=== PATIENT | male | born 1990 | race Caucasian/White ===

== ENCOUNTER 2020-11-18 00:03 | Emergency (ER) | payer MEDICAID, SELFPAY ==
[2020-11-18 00:04] VITALS: BP 125/83; BP 140/90; PULSE 80; PULSE 91; RESP 18; TEMP 37.1; O2SAT 95; O2SAT 99; BMI 20.7
--- NOTE | 2020-11-18 00:13 | ED_ITS ---
HPI - Psych General Chief Complaint: Psychiatric Symptoms Stated Complaint: CRISIS,NO SI/HI,CALM&COOP @ TIME,MANIC,?MED PER PT Time Seen by Provider: 11/18/20 00:13 Source: patient Mode of arrival: ambulatory Limitations: no limitations History of Present Illness HPI Narrative: History of bipolar disorder on lithium and BuSpar but non compliant to the medication been feeling manic for last few days unable to sleep very anxious denies any suicidal ideation or homicidal ideation no delusions hallucinations MD complaint: anxiety Onset (ago): day(s) Duration: constant History of same: Yes Relieving factors: none Exacerbating factors: none Context: not taking psychiatric medications Associated psychiatric symptoms: depression and racing thoughts Treatments prior to arrival: none Related Data Previous Rx's Medication Instructions Recorded lorazepam [Ativan] 1 mg PO BEDTIME PRN #14 tab 11/18/20 Allergies Allergy/AdvReac Type Severity Reaction Status Date / Time amoxicillin [AMOXICILLIN] Allergy Intermediate RASH Verified 11/18/20 00:14 bupropion [BUPROPION] Allergy Unknown UNKNOWN Verified 11/18/20 00:14 Review of Systems Review of Systems: Constitutional : No Fever, No Chills ENT/Mouth : No Ear Pain, No Nasal Congestion, No sore throat Eyes: No Eye Pain, No Swelling, No Redness Cardiovascular : No Chest Pain, No SOB Respiratory : No Cough, No Sputum, No Dyspnea Gastrointestinal : No Nausea, No Vomiting, No Diarrhea, No Hematochezia, No Melena Genitourinary : No Dysuria, No Urinary Frequency, No Hematuria Musculoskeletal : No Myalgias Skin : No Skin Lesions, No rash Neuro : No Weakness, No Numbness, No Paresthesias, No Dizziness, No Headache Psych : positive Anxiety, positive Depression, negative SI/HI Heme/Lymph: No Lymphadenopathy Endocrine : No Polyuria, No Polydipsia PMFSH Past Medical History Medical History Bipolar disorder Social History Social History Advance Directives: No Advance Directives Information Provided: No Physical Exam Vital Signs: Vital Signs: Last Vital Signs Temp 98.8 F 11/18/20 00:04 Pulse 91 11/18/20 00:04 Resp 18 11/18/20 00:04 BP 125/83 11/18/20 00:04 Pulse Ox 95 11/18/20 00:04 Body Mass Index 20.7 Const: General: comfortable and no acute distress Orientation/consciousness: patient oriented x3 HENMT: Head: Yes normocephalic and Yes atraumatic Ears: hearing grossly normal bilaterally General nose exam: Normal external nose present Eyes: General: appearance normal, both eyes and all related structures Conjunctivae: conjunctivae normal Sclerae: sclerae normal Neck: Neck: Yes normal visual inspection Resp: Effort & Inspection: normal respiratory effort Auscultation: clear to auscultation bilaterally Cardio: Jugular venous distension: no JVD Palpation: normal PMI Rate: regular rate Rhythm: regular rhythm Heart sounds: S1 normal heart sound present and S2 normal heart sound present GI: Inspection: Yes normal to inspection Palpation (GI): Soft to palpation and nontender Auscultation: normal bowel sounds Back/Spine/Pelvis: Thoracic/Lumbar Spine: thoracic and lumbar spine normal to inspection Skin: General skin exam: no rashes or lesions noted Neuro: General: patient oriented x3 and no focal motor deficits Extrem: General: Yes normal to inspection and Yes full ROM Psych: Appearance: grossly normal Mental Status: mental status grossly normal Speech and movement: Normal speech and movement present Affect: Anxious affect present Attitude: cooperative Thought process: Normal thought process present Thought content: Normal thought content present Insight: Fair insight present (Psych) Judgement: Fair judgement present (Psych) MDM - Psych MDM Narrative Medical decision making narrative: Patient has bipolar disorder already has planned to see therapist next week and psychiatrist next month already has prescriptions at home feels safe to go home asking for medication to relax him denies any suicidal ideation will discharge him home on Ativan Differential Diagnosis Differential diagnosis: Likely bipolar disorder Medical Records Attestation: I reviewed the patient's medical records. Lab Data Attestation: I reviewed the patient's lab results. Result diagrams: 11/18/20 00:24 11/18/20 00:24 Labs: Lab Results 11/18/20 11/18/20 11/18/20 Range/Units 00:24 00:24 00:24 WBC 11.4 H (4.8-10.8) X10*3/uL RBC 5.12 (4.60-5.80) X10*6/uL Hgb 14.4 (14.0-18.0) g/dl Hct 43.9 (42-52) % MCV 85.7 (80-98) fL MCH 28.1 (27.0-33.0) pg MCHC 32.8 (31.0-36.0) g/dl RDW 12.6 (11.0-16.0) % Plt Count 267 (160-400) X10*3/uL MPV 9.9 (9.4-12.4) fL Immature Gran % (Auto) 0.9 H (0.0-0.4) % Neut % (Auto) 72.1 (45-73) % Lymph % (Auto) 18.1 L (20-40) % [place] % (Auto) 4.5 (2-11) % Eos % (Auto) 4.2 H (0-4) % Baso % (Auto) 0.2 (0-2) % Lymph # (Auto) 2.1 (1.2-4.9) X10*3/uL [place] # (Auto) 0.5 (0.1-1.2) X10*3/uL Eos # (Auto) 0.5 H (0.0-0.4) X10*3/uL Baso # (Auto) 0.0 (0.0-0.2) X10*3/uL Abs Immat Gran (auto) 0.10 H (0.00-0.03) X10*3/uL Absolute Neuts (auto) 8.2 (2.0-8.3) X10*3/uL Absolute Nucleated RBC 0.000 (0.0-0.012) X10*3/uL Nucleated RBC % (auto) 0.0 (0.0-0.2) /100WBC Sodium 137 (135-145) mmol/L Potassium 4.2 (3.3-5.1) mmol/L Chloride 105 (96-108) mmol/L Carbon Dioxide 24 (22-29) mmol/L Anion Gap 12 (12-20) BUN 11 (9-16) mg/dL Creatinine 0.91 (0.5-1.4) mg/dL Estim Creat Clear Calc 114.4 Estimated GFR > 60 Random Glucose 104 (60-115) mg/dL Calcium 9.1 (8.4-10.2) mg/dL Total Bilirubin 0.4 (0.0-1.0) mg/dL AST 18 (5-37) U/L ALT 15 (0-40) U/L Alkaline Phosphatase 43 (39-117) U/L Total Protein 6.5 (6.5-8.0) g/dL Albumin 4.3 (3.5-5.0) g/dL [place] 0.30 L (0.60-1.20) mmol/L Discharge Plan Discharge Clinical Impression: Bipolar disorder Patient Disposition: Home, Self-Care Instructions: Bipolar Disorder (ED) Additional Instructions: Continue taking your medications and follow with your therapist and psychiatrist as planned Ativan for severe anxiety Prescriptions: New lorazepam [Ativan] 1 mg tablet 1 mg PO BEDTIME PRN (Reason: anxiety) Qty: 14 RF: 0
[2020-11-18 00:46] LABS: MANUAL DIFF FLAG NO
[2020-11-18 00:48] LABS: Basophils Percent Auto 0.2 % (0-2); Eosinophils Absolute Auto 0.5 X10*3/uL (0.0-0.4); Eosinophils Percent Auto 4.2 % (0-4); Hematocrit 43.9 % (42-52); Hemoglobin 14.4 g/dl (14.0-18.0); Imm Gran Pct Auto 0.9 % (0.0-0.4); Lymphocytes Absolute Auto 2.1 X10*3/uL (1.2-4.9); Lymphocytes Percent Auto 18.1 % (20-40); Mean Corpuscular HGB Conc 32.8 g/dl (31.0-36.0); Mean Corpuscular Hemoglobin 28.1 pg (27.0-33.0); Mean Corpuscular Volume 85.7 fL (80-98); Mean Platelet Volume 9.9 fL (9.4-12.4); Monocytes Absolute Auto 0.5 X10*3/uL (0.1-1.2); Monocytes Percent Auto 4.5 % (2-11); Neutrophils Absolute Auto 8.2 X10*3/uL (2.0-8.3); Neutrophils Percent Auto 72.1 % (45-73); Platelet Count 267 X10*3/uL (160-400); Red Blood Count 5.12 X10*6/uL (4.60-5.80); Red Cell Distribution Width 12.6 % (11.0-16.0); White Blood Count 11.4 X10*3/uL (4.8-10.8)
[2020-11-18 01:10] LABS: Alanine Aminotransferase 15 U/L (0-40); Albumin Level 4.3 g/dL (3.5-5.0); Alkaline Phosphatase 43 U/L (39-117); Anion Gap 12 (12-20); Aspartate Amino Transferase 18 U/L (5-37); Bilirubin Total 0.4 mg/dL (0.0-1.0); Blood Urea Nitrogen 11 mg/dL (9-16); Calcium 9.1 mg/dL (8.4-10.2); Carbon Dioxide 24 mmol/L (22-29); Chloride 105 mmol/L (96-108); Creatinine Clr Calc Pharmacy 114.4; Estimated Glomerular Filt Rate > 60; Glucose Random 104 mg/dL (60-115); Potassium 4.2 mmol/L (3.3-5.1); Sodium 137 mmol/L (135-145); Total Protein 6.5 g/dL (6.5-8.0)
[2020-11-18] MEDS: LORazepam 1 MG TABLET 2 MG PO (01:56)
== END 2020-11-18 02:15 | disposition home or self-care (01) ==
PROVIDERS: Emergency Provider Internal Medicine
DX: F31.9 Bipolar disorder, unspecified (principal); Z91.14 Patient's other noncompliance with medication regimen; F41.9 Anxiety disorder, unspecified; F17.210 Nicotine dependence, cigarettes, uncomplicated; F12.90 Cannabis use, unspecified, uncomplicated; F14.90 Cocaine use, unspecified, uncomplicated; F16.90 Hallucinogen use, unspecified, uncomplicated; F15.90 Other stimulant use, unspecified, uncomplicated
CPT/HCPCS: 36415; 80053; 80178; 85025; 99283

== ENCOUNTER 2020-11-18 19:39 | Inpatient (IN) | payer OTHER, MEDICAID, SELFPAY ==
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
--- NOTE | ~2020-11-18 | XR_ITS ---
EXAMINATION: XR HAND, RIGHT CLINICAL INFORMATION: Trauma, pain. COMPARISON: Radiographs right hand 11/19/2020. TECHNIQUE: PA, lateral, and oblique views of the right hand. FINDINGS: There is no acute or healing fracture, dislocation, or destructive process. Bony mineralization appears normal. The ulnar variance is neutral. There is no arthropathy. No periostitis. XR/XR hand RT 2V IMPRESSION: No acute or healing fracture or dislocation.
[2020-11-18 20:39] VITALS: BP 122/65; PULSE 114; RESP 18; TEMP 36.9; O2SAT 96; BMI 23.4
[2020-11-18 20:51] VITALS: BP 122/65; PULSE 114; RESP 18; TEMP 36.9; O2SAT 96
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
[2020-11-18 21:47] LABS: Amphetamine Screen Urine POSITIVE (Not Detect); Barbiturates, Urine Not Detected (Not Detect); Benzodiazepines Screen Urine Not Detected (Not Detect); Cannabinoid Screen Urine POSITIVE (Not Detect); Cocaine Screen Urine Not Detected (Not Detect); Opiate Screen Urine Not Detected (Not Detect); Phencyclidine Screen Urine Not Detected (Not Detect)
--- NOTE | 2020-11-18 22:27 | PC.NURSE ---
[facility] faxed and called. Ji stated that PT was assessed in the community and is currently an inpatient bed search.
--- NOTE | 2020-11-19 00:30 | PC.NURSE ---
Med rec completed with 24 hour [facility] pharmacy.
[2020-11-19 06:32] LABS: COVID-19 Test Negative (Negative); IDNOW Serial# 9DD0AD1C
[2020-11-19] MEDS: Nicotine 21 MG PATCH.TD24 TRANSDERMA ×2 (06:42→12:22)
[2020-11-19 06:49] VITALS: BP 98/68; PULSE 87; RESP 18; TEMP 36.6; O2SAT 96
--- NOTE | 2020-11-19 07:04 | PC.NURSE ---
Report received. PT currently resting, calm and cooperative, Pt is inpatient bedsearch.
[2020-11-19] MEDS: busPIRone HCl 5 MG TABLET 15 MG PO ×3 (08:48→23:30)
[2020-11-19] MEDS: Lithium Carbonate ER 450 MG TABLET.ER PO ×3 (08:48→23:29)
[2020-11-19 09:00] VITALS: BP 110/71; PULSE 115; RESP 18; TEMP 37.1; O2SAT 95
[2020-11-19] MEDS: LORazepam 1 MG TABLET 2 MG PO ×2 (12:22→19:38)
[2020-11-19 15:32] VITALS: BP 106/70; PULSE 93; RESP 19; TEMP 36.6; O2SAT 99
[2020-11-19] MEDS: chlorproMAZINE HCl 100 MG TABLET PO ×2 (15:35→23:34)
[2020-11-19 18:15] VITALS: BP 103/61; PULSE 92; RESP 20; TEMP 36.6; O2SAT 96
--- NOTE | 2020-11-19 20:00 | PC.NURSE ---
Report received. PT was anxious about being sent home because he still feels manic and overwhelmed with emotions. PT is sitting in his room speaking with BHN. PT is inpatient bed search at this time.
--- NOTE | 2020-11-19 21:47 | PC.NURSE ---
PT is upset and agitated after speaking with BHN. PT wants to go home, but also desires psychiatric treatment at respite. This nurse explained to the PT that he would receive the type of care he is looking for at an inpatient facility. PT is still angry after finding out that he is being held on a Section 12. PT refused night time medications. Buspirone was delivered by pharmacy and therefore could not be wasted in the Pyxis. This nurse wasted Buspirone in the sharps container with charge nurse Jody as witness.
--- NOTE | 2020-11-19 23:03 | PC.NURSE ---
PT was agitated, punching castillo, and arguing with staff. PT told this nurse to stop talking to him. PT does not want to held here on a Section. Security was called for assistance. Security was able to talk to the patient and calm him down.
--- NOTE | 2020-11-19 23:28 | PC.NURSE ---
PT is now requesting his night time medications.
[2020-11-19 23:35] VITALS: BP 101/63; PULSE 98; RESP 16; TEMP 36.8; O2SAT 97
--- NOTE | 2020-11-19 23:35 | PC.NURSE ---
PT complained about his hand hurting after punching the castillo. This nurse examined his hand and found an abrasion and swelling on the fourth knuckle of his right hand. Provider informed. X-ray ordered.
[2020-11-20] MEDS: Melatonin 3 MG TABLET 6 MG PO (00:01)
[2020-11-20] MEDS: Lithium Carbonate ER 450 MG TABLET.ER PO ×3 (08:20→20:39)
[2020-11-20] MEDS: busPIRone HCl 5 MG TABLET 15 MG PO ×3 (08:20→21:10)
[2020-11-20 08:30] VITALS: BP 115/67; PULSE 82; RESP 17; TEMP 36.8; O2SAT 99
[2020-11-20 10:00] VITALS: RESP 16
[2020-11-20 11:02] VITALS: BP 107/70; PULSE 108; RESP 16; TEMP 36.7
[2020-11-20] MEDS: LORazepam 1 MG TABLET 2 MG PO ×3 (11:11→23:43)
[2020-11-20] MEDS: Nicotine 21 MG PATCH.TD24 TRANSDERMA (11:12)
[2020-11-20 12:00] VITALS: RESP 18
[2020-11-20 13:55] VITALS: RESP 16
--- NOTE | 2020-11-20 15:08 | PC.NURSE ---
Report received. Pt sitting on bed at current, alert, and calm. No complaints at this time.
--- NOTE | 2020-11-20 17:19 | PC.NURSE ---
Pt asleep in bed at current, no signs of distress, respirations even and unlabored.
--- NOTE | 2020-11-20 17:40 | PC.NURSE ---
Pt agitated after a phone call, requested and given ativan prn as ordered.
[2020-11-20 17:41] VITALS: BP 118/74; PULSE 140; RESP 18; TEMP 37.2; O2SAT 96
--- NOTE | 2020-11-20 18:12 | PC.NURSE ---
Pt requesting to speak to a therapist and not BHN. CARE consult ordered by provider.
--- NOTE | 2020-11-20 18:19 | PC.NURSE ---
Pt reporting SI, demanding to speak with a therapist . Irritable. Pt reassured that someone from CARE team would be coming to speak with him. Declined dinner. Pt laying in bed at current.
[2020-11-20] MEDS: chlorproMAZINE HCl 100 MG TABLET PO (20:43)
[2020-11-20] MEDS: diphenhydrAMINE HCL 25 MG TABLET 50 MG PO (22:22)
--- NOTE | 2020-11-21 01:29 | MHC.CARE ---
CARE Team was consulted due to pt reporting that he wants to speak with a therapist. CARE Team made several attempts to check in with pt this evening, however, pt was either sleeping or on the phone each time. ED BH Pod is encouraged to re consult CARE Team if still needed tomrrow.
--- NOTE | 2020-11-21 07:12 | PC.NURSE ---
Report received from PAULINO Rodriguez. Pt resting, resp unlabored.
[2020-11-21 07:32] VITALS: BP 103/70; PULSE 88; RESP 20; TEMP 36.6; O2SAT 98
[2020-11-21 08:00] VITALS: RESP 20
--- NOTE | 2020-11-21 08:05 | PC.NURSE ---
Pt awake alert, very irritable, demanding to see care team, stating ' I wont take any medications....you can shove them up your ass.' Unclear what triggered the irritation.
--- NOTE | 2020-11-21 09:31 | PC.NURSE ---
Pt resting- declined to take medications, continues to be irritable, continues to state that staff can take medications 'and shove it...' Pt aware that he has been accepted to [facility].
[2020-11-21 10:00] VITALS: RESP 20
--- NOTE | 2020-11-21 10:48 | PC.NURSE ---
Pt on telephone, then bvecame very angry, swearing at RN, unclear what triggered current behavior.
--- NOTE | 2020-11-21 10:57 | PC.NURSE ---
MHA in to converse w/ pt. Pt stated to her that he is angry because he wants BHN in to see him; unable to meet this need as pt has been accepted to [facility]
--- NOTE | 2020-11-21 11:29 | PC.NURSE ---
Report given to Tonny Garcia. Pt aware that he will be transferred to [facility], continues to decline PO medications. Care team in.
[2020-11-21 12:00] VITALS: RESP 20
--- NOTE | 2020-11-21 12:02 | PC.NURSE ---
Security and CARE team in to transfer pt to [facility]. Pt cooperative w/ transfer.
[2020-11-21] MEDS: LORazepam 1 MG TABLET 2 MG PO ×2 (15:35→22:23)
[2020-11-21] MEDS: busPIRone HCl 5 MG TABLET 15 MG PO ×2 (15:35→20:05)
[2020-11-21] MEDS: Lithium Carbonate ER 450 MG TABLET.ER PO ×2 (15:36→20:04)
--- NOTE | 2020-11-21 15:37 | MHC.CARE ---
Pt was agitated during the morning hours and initially refused to sign a CV to come to the unit. After speaking with the Pt, he agreed to sign the CV and explained his frustrations with the process and the wait. Pt was agreeable and accompanied me to the unit.
[2020-11-21] MEDS: Nicotine Polacrilex 2 MG GUM 4 MG BUCCAL (17:20)
[2020-11-21 18:00] VITALS: BP 128/76; PULSE 81; TEMP 36.6
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
[2020-11-21] MEDS: chlorproMAZINE HCl 100 MG TABLET PO (20:29)
[2020-11-22] MEDS: HaloperidoL 5 MG TABLET PO ×2 (00:01→22:07)
[2020-11-22] MEDS: traZODone HCL 50 MG TABLET PO ×3 (00:01→22:07)
[2020-11-22] MEDS: hydrOXYzine HCL 25 MG TABLET PO (00:01)
[2020-11-22 06:44] VITALS: BP 122/60; PULSE 75; RESP 16; TEMP 37.1; O2SAT 98
[2020-11-22] MEDS: busPIRone HCl 5 MG TABLET 15 MG PO ×3 (08:34→20:24)
[2020-11-22] MEDS: Lithium Carbonate ER 450 MG TABLET.ER PO ×3 (08:35→20:22)
[2020-11-22 09:11] LABS: Thyroid Stimulating Hormone 1.99 uIU/mL (0.32-4.0)
[2020-11-22] MEDS: LORazepam 1 MG TABLET 2 MG PO ×2 (10:50→20:21)
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
[2020-11-22] MEDS: chlorproMAZINE HCl 100 MG TABLET PO ×2 (16:29→20:21)
[2020-11-22] MEDS: Nicotine 21 MG PATCH.TD24 TRANSDERMA (16:32)
[2020-11-22] MEDS: Nicotine Polacrilex 2 MG GUM 4 MG BUCCAL (17:13)
[2020-11-22 18:00] VITALS: BP 105/87; PULSE 80; TEMP 36.7
[2020-11-22] MEDS: OXcarbazepine 300 MG TABLET PO (20:22)
[2020-11-23 06:10] VITALS: BP 110/58; PULSE 86; RESP 18; TEMP 36.5; O2SAT 97
[2020-11-23] MEDS: Nicotine 21 MG PATCH.TD24 TRANSDERMA (08:43)
[2020-11-23] MEDS: chlorproMAZINE HCl 100 MG TABLET PO ×2 (08:44→20:16)
[2020-11-23] MEDS: Lithium Carbonate ER 450 MG TABLET.ER PO ×3 (08:44→20:17)
[2020-11-23] MEDS: busPIRone HCl 5 MG TABLET 15 MG PO ×3 (08:44→20:17)
[2020-11-23] MEDS: OXcarbazepine 300 MG TABLET PO ×2 (08:45→20:16)
[2020-11-23 09:15] LABS: Estimated Average Glucose 97 mg/dL
[2020-11-23 09:17] LABS: Lithium 0.88 mmol/L (0.60-1.20)
[2020-11-23 09:23] LABS: Cholesterol 131 mg/dL; HDL Cholesterol 33 mg/dL; LDL Cholesterol Calculated 75 mg/dl; Triglycerides 115 mg/dL
[2020-11-23 09:39] LABS: TSH reflex Free T4 1.68 uIU/mL (0.32-4.0)
[2020-11-23] MEDS: LORazepam 1 MG TABLET 2 MG PO ×2 (10:41→16:43)
[2020-11-23] MEDS: HaloperidoL 5 MG TABLET PO (13:55)
[2020-11-23 16:49] VITALS: BP 114/56; PULSE 111; TEMP 36.6
[2020-11-23 20:17] VITALS: BP 110/61; PULSE 94
[2020-11-23] MEDS: cloNIDine HCL 0.1 MG TABLET PO (20:17)
[2020-11-23] MEDS: traZODone HCL 50 MG TABLET PO ×2 (20:23→21:29)
--- NOTE | 2020-11-23 20:56 | P.PNPSI_ITS ---
Subjective Subjective Date of Service: 11/23/20 Reason For Visit: Bipolar Disorder Subjective Notes: [place]incon Warning and Conditional Voluntary Interim History: Patient somewhat pressured in agitated complains of insomnia he does except that he has a bipolar diagnosis we discussed increasing Thorazine at bedtime as needed for sleep start clonidine monitor blood pressure Trileptal started Medication Compliance: Yes Side effects from medications: Yes Mental Status Exam Mental Status Exam Narrative: Appearance: casually groomed, poor hygiene, in NAD Behavior: mostly cooperative, but restless Psychomotor: restless, agitated at times Speech: mostly clear, rambles at times, hyperverbal and pressured at times, spontaneous TP: tangential TC: no overt psychosis, feeling out of control, passive SI Mood: depressed Affect: restless/irritable at times VH/AH: denies Insight/judgment: poor x 2. Memory/cog:alert, oriented x 3. impaired secondary to psychiatric symptoms. Diagnostics Vital Signs (24Hr): Vital Signs - 24 hr 11/23/20 06:10 11/23/20 16:49 11/23/20 20:17 Temperature 97.7 F 97.8 F Pulse Rate 86 111 H 94 Respiratory Rate 18 Blood Pressure 110/58 L 114/56 L 110/61 Pulse Oximetry 97 Body Mass Index 23.4 Labs Labs: Laboratory Results - last 48 hr 11/22/20 11/23/20 11/23/20 07:56 08:23 08:23 Estimat Average Glucose Hemoglobin A1c % Triglycerides 115 Cholesterol 131 LDL Cholesterol, Calc 75 HDL Cholesterol 33 TSH 1.99 1.68 [place] 0.88 11/23/20 08:23 Estimat Average Glucose 97 Hemoglobin A1c % 5.0 Triglycerides Cholesterol LDL Cholesterol, Calc HDL Cholesterol TSH [place] Imaging Radiology Impressions: ITS Impressions Hand X-Ray 11/19/20 23:37 IMPRESSION: Normal right hand. Hand X-Ray 11/22/20 16:20 IMPRESSION: No acute or healing fracture or dislocation. Medications Medications Current Medications Generic Name Dose Route Start Last Admin Trade Name Freq PRN Reason Stop Dose Admin Acetaminophen 650 mg 11/21/20 12:40 Acetaminophen 325 Mg Tablet PO Q6H PRN Headache/Pain Mild Scale (1-3) Al Hydroxide/Mg Hydroxide 30 ml 11/21/20 12:40 Magnesium Hydrox/Alum Hydrox 30 Ml Oral.Susp PO Q6H PRN Heartburn/Nausea Buspirone HCl 15 mg 11/19/20 09:00 11/23/20 20:17 Buspirone Hcl 5 Mg Tablet PO 15 mg TID EDDA Administration Chlorpromazine HCl 100 mg 11/22/20 14:15 11/23/20 20:16 Chlorpromazine Hcl 100 Mg Tablet PO 100 mg BID EDDA Administration Chlorpromazine HCl 50 mg 11/23/20 20:48 Chlorpromazine Hcl 100 Mg Tablet PO BEDTIME PRN Insomnia Clonidine HCl 0.1 mg 11/23/20 21:00 11/23/20 20:17 Clonidine Hcl 0.1 Mg Tablet PO 0.1 mg BEDTIME EDDA Administration Protocol Haloperidol 5 mg 11/21/20 14:25 11/23/20 13:55 Haloperidol 5 Mg Tablet PO 5 mg Q4H PRN Administration agitation Hydroxyzine HCl 25 mg 11/21/20 12:40 11/22/20 00:01 Hydroxyzine Hcl 25 Mg Tablet PO 25 mg BEDTIME PRN Administration Anxiety [place] Carbonate 450 mg 11/19/20 09:00 11/23/20 20:17 [place] Carbonate Er 450 Mg Tablet.Er PO 450 mg TID EDDA Administration Lorazepam 2 mg 11/21/20 14:21 11/23/20 16:43 Lorazepam 1 Mg Tablet PO 2 mg Q6H PRN Administration anxiety/restlessness Magnesium Hydroxide 30 ml 11/21/20 12:40 Milk Of Magnesia 30 Ml Oral.Susp PO DAILY PRN Constipation Nicotine 21 mg 11/22/20 14:00 11/23/20 08:43 Nicotine 21 Mg Patch.Td24 TRANSDERMA 21 mg DAILY EDDA Administration Nicotine Polacrilex 4 mg 11/21/20 17:03 11/22/20 17:13 Nicotine Polacrilex 2 Mg Gum BUCCAL 4 mg Q2H PRN Administration Nicotine Cravings Oxcarbazepine 300 mg 11/22/20 21:00 11/23/20 20:16 Oxcarbazepine 300 Mg Tablet PO 300 mg BID EDDA Administration Sumatriptan Succinate 50 mg 11/19/20 15:11 Sumatriptan Succinate 50 Mg Tablet PO BID PRN Migraine Headache Trazodone HCl 50 mg 11/21/20 12:40 11/23/20 20:23 Trazodone Hcl 50 Mg Tablet PO 50 mg BEDTIME PRN Administration Insomnia Allergies Allergies Allergy/AdvReac Type Severity Reaction Status Date / Time amoxicillin [AMOXICILLIN] Allergy Intermediate RASH Verified 11/18/20 00:14 bupropion [BUPROPION] Allergy Unknown UNKNOWN Verified 11/18/20 00:14 Assessment & Plan Assessment & Plan (1) Amphetamine and amphetamine derivative dependence: Status: Acute Code(s): F15.20 - Other stimulant dependence, uncomplicated (2) Bipolar disorder: Status: Acute Code(s): F31.9 - Bipolar disorder, unspecified Assessment and Plan: Continue lithium Trileptal Thorazine encourage abstinence Greater than 50% of the session was spent on counseling and/or coordination of care Reason for contiued inpatient stay Substantial Risk for: harm to self
[2020-11-24 06:05] VITALS: BP 92/55; PULSE 88; RESP 16; TEMP 36.1; O2SAT 96
--- NOTE | 2020-11-24 08:00 | ECG_ITS ---
Test Reason : ON HALDOL Blood Pressure : / mmHG Vent. Rate : 079 BPM Atrial Rate : 079 BPM P-R Int : 154 ms QRS Dur : 108 ms QT Int : 372 ms P-R-T Axes : 060 081 069 degrees QTc Int : 426 ms Normal sinus rhythm Normal ECG When compared with ECG of 24-DEC-2019 12:11, No significant change was found Referred By: Ger Wells Electronically Signed By:Jm Burger
[2020-11-24] MEDS: Nicotine 21 MG PATCH.TD24 TRANSDERMA (08:41)
[2020-11-24] MEDS: chlorproMAZINE HCl 100 MG TABLET PO ×2 (08:41→21:12)
[2020-11-24] MEDS: OXcarbazepine 300 MG TABLET PO ×2 (08:41→21:13)
[2020-11-24] MEDS: Nicotine Polacrilex 2 MG GUM 4 MG BUCCAL (08:41)
[2020-11-24] MEDS: Lithium Carbonate ER 450 MG TABLET.ER PO ×3 (08:41→21:13)
[2020-11-24] MEDS: busPIRone HCl 5 MG TABLET 15 MG PO ×3 (08:42→21:14)
[2020-11-24] MEDS: LORazepam 1 MG TABLET 2 MG PO ×2 (12:45→20:04)
[2020-11-24 19:58] LABS: Influenza A PCR NEGATIVE (Negative); Influenza B PCR NEGATIVE (Negative); Resp Syncy Virus RNA Qual PCR NEGATIVE (Negative); SARS COV2 PCR INHOUSE NEGATIVE (Negative)
--- NOTE | 2020-11-24 20:19 | P.PNPSI_ITS ---
Subjective Subjective Date of Service: 11/24/20 Reason For Visit: Bipolar Disorder Subjective Notes: [place] Warning, Conditional Voluntary and 3 Day Interim History: pt irritable dysphoric willing to take in info has blood phobia understands need to dec lithium gradually Medication Compliance: Yes Side effects from medications: Yes Mental Status Exam Mental Status Exam Patient Appearance: Appropriate Patient Orientation: Person, Place, Time and Situation Level of Consciousness: Awake Patient Behavior: Appropriate Mood Description: Depressed, Anxious and Labile Affect Description: Depressed, Anxious and Labile Memory Description: Intact Hallucinations: None Delusions: Not Present Thought Process: Rumination Thought Content: negative for Suicidal Ideation and negative for Homicidal Ideation Depressive Symptoms: Increased Anxiety Abnormal Motor Activity Signs and Symptoms: Agitation Judgement: Fair Diagnostics Vital Signs (24Hr): Vital Signs - 24 hr 11/24/20 06:05 Temperature 97 F Pulse Rate 88 Respiratory Rate 16 Blood Pressure 92/55 L Pulse Oximetry 96 Body Mass Index 23.4 Labs Labs: Laboratory Results - last 48 hr 11/23/20 11/23/20 11/23/20 08:23 08:23 08:23 Estimat Average Glucose 97 Hemoglobin A1c % 5.0 Triglycerides 115 Cholesterol 131 LDL Cholesterol, Calc 75 HDL Cholesterol 33 TSH 1.68 [place] 0.88 Imaging Radiology Impressions: ITS Impressions Hand X-Ray 11/19/20 23:37 IMPRESSION: Normal right hand. Hand X-Ray 11/22/20 16:20 IMPRESSION: No acute or healing fracture or dislocation. Medications Medications Current Medications Generic Name Dose Route Start Last Admin Trade Name Freq PRN Reason Stop Dose Admin Acetaminophen 650 mg 11/21/20 12:40 Acetaminophen 325 Mg Tablet PO Q6H PRN Headache/Pain Mild Scale (1-3) Al Hydroxide/Mg Hydroxide 30 ml 11/21/20 12:40 Magnesium Hydrox/Alum Hydrox 30 Ml Oral.Susp PO Q6H PRN Heartburn/Nausea Buspirone HCl 15 mg 11/19/20 09:00 11/24/20 14:02 Buspirone Hcl 5 Mg Tablet PO 15 mg TID EDDA Administration Chlorpromazine HCl 50 mg 11/23/20 20:48 Chlorpromazine Hcl 100 Mg Tablet PO BEDTIME PRN Insomnia Chlorpromazine HCl 100 mg 11/24/20 21:00 Chlorpromazine Hcl 100 Mg Tablet PO BEDTIME EDDA Clonidine HCl 0.1 mg 11/23/20 21:00 11/23/20 20:17 Clonidine Hcl 0.1 Mg Tablet PO 0.1 mg BEDTIME EDDA Administration Protocol Haloperidol 5 mg 11/21/20 14:25 11/23/20 13:55 Haloperidol 5 Mg Tablet PO 5 mg Q4H PRN Administration agitation Hydroxyzine HCl 25 mg 11/21/20 12:40 11/22/20 00:01 Hydroxyzine Hcl 25 Mg Tablet PO 25 mg BEDTIME PRN Administration Anxiety [place] Carbonate 450 mg 11/24/20 15:00 11/24/20 14:02 [place] Carbonate Er 450 Mg Tablet.Er PO 450 mg TID EDDA Administration Lorazepam 2 mg 11/21/20 14:21 11/24/20 20:04 Lorazepam 1 Mg Tablet PO 2 mg Q6H PRN Administration anxiety/restlessness Magnesium Hydroxide 30 ml 11/21/20 12:40 Milk Of Magnesia 30 Ml Oral.Susp PO DAILY PRN Constipation Nicotine 21 mg 11/22/20 14:00 11/24/20 08:41 Nicotine 21 Mg Patch.Td24 TRANSDERMA 21 mg DAILY EDDA Administration Nicotine Polacrilex 4 mg 11/21/20 17:03 11/24/20 08:41 Nicotine Polacrilex 2 Mg Gum BUCCAL 4 mg Q2H PRN Administration Nicotine Cravings Oxcarbazepine 300 mg 11/22/20 21:00 11/24/20 08:41 Oxcarbazepine 300 Mg Tablet PO 300 mg BID EDDA Administration Sumatriptan Succinate 50 mg 11/19/20 15:11 Sumatriptan Succinate 50 Mg Tablet PO BID PRN Migraine Headache Trazodone HCl 50 mg 11/21/20 12:40 11/23/20 21:29 Trazodone Hcl 50 Mg Tablet PO 50 mg BEDTIME PRN Administration Insomnia Allergies Allergies Allergy/AdvReac Type Severity Reaction Status Date / Time amoxicillin [AMOXICILLIN] Allergy Intermediate RASH Verified 11/18/20 00:14 bupropion [BUPROPION] Allergy Unknown UNKNOWN Verified 11/18/20 00:14 Assessment & Plan Assessment & Plan (1) Amphetamine and amphetamine derivative dependence: Status: Acute Code(s): F15.20 - Other stimulant dependence, uncomplicated Assessment and Plan: encourage sobriety (2) Bipolar disorder: Status: Acute Code(s): F31.9 - Bipolar disorder, unspecified Assessment and Plan: discuss tx options rincon warning given pt discussing options of php [address] Greater than 50% of the session was spent on counseling and/or coordination of care Reason for contiued inpatient stay Substantial Risk for: harm to others, inability to function and rapid decompensation
[2020-11-24 21:14] VITALS: BP 105/56; PULSE 97
[2020-11-24] MEDS: cloNIDine HCL 0.1 MG TABLET PO (21:14)
[2020-11-24 21:15] VITALS: BP 105/56; PULSE 97; TEMP 36.6
[2020-11-24] MEDS: traZODone HCL 50 MG TABLET PO ×2 (21:20→22:23)
[2020-11-24] MEDS: chlorproMAZINE HCl 100 MG TABLET 50 MG PO (22:23)
[2020-11-24] MEDS: hydrOXYzine HCL 25 MG TABLET PO (22:23)
[2020-11-25 04:31] LABS: Folate 9.6 ng/mL (> or = 4.0); Vitamin B12 496 pg/mL (200-900)
[2020-11-25 06:00] VITALS: BP 103/57; PULSE 91; RESP 18; TEMP 37; O2SAT 98
[2020-11-25] MEDS: OXcarbazepine 300 MG TABLET PO ×2 (08:25→21:33)
[2020-11-25] MEDS: Lithium Carbonate ER 450 MG TABLET.ER PO (08:25)
[2020-11-25] MEDS: busPIRone HCl 5 MG TABLET 15 MG PO ×3 (08:25→21:23)
[2020-11-25] MEDS: Nicotine 21 MG PATCH.TD24 TRANSDERMA (08:38)
[2020-11-25] MEDS: LORazepam 1 MG TABLET 2 MG PO ×2 (11:28→17:44)
--- NOTE | 2020-11-25 13:30 | P.PNPSI_ITS ---
Subjective Subjective Date of Service: 11/25/20 Reason For Visit: Bipolar Disorder Interim History: Pt reports he feels much calmer today. he reports he is not as explosive as when he first came in. He agrees that his explosive and reactive behavior is problematic, although minimizes effects of substance on his mood. He reports sleeping better. His tp is more organized. He denies SI/HI. He appears calmer. We discussed continuing both lithium and trileptal for now. Review of Systems Review of Systems Pertinent positives and negatives as stated in HPI 10 point review of systems is otherwise negative. Constitutional: Denies weakness, Denies weight gain and Denies weight loss Cardiovascular: Denies chest pain, Denies chest pain at rest, Denies chest pain with activity, Denies syncope, Denies rapid heart rate and Denies dyspnea Respiratory: Denies dyspnea Gastrointestinal: Denies constipation and Denies diarrhea Denies syncope and Denies weakness Mental Status Exam Mental Status Exam Narrative: Appearance: casually groomed, poor hygiene, in NAD Behavior: mostly cooperative, but restless Psychomotor: restless, agitated at times Speech: mostly clear, rambles at times, hyperverbal and pressured at times, spontaneous TP: tangential TC: no overt psychosis, feeling out of control, passive SI Mood: depressed Affect: restless/irritable at times VH/AH: denies Insight/judgment: poor x 2. Memory/cog:alert, oriented x 3. impaired secondary to psychiatric symptoms. Diagnostics Vital Signs (24Hr): Vital Signs - 24 hr 11/24/20 21:14 11/24/20 21:15 11/25/20 06:00 Temperature 97.8 F 98.6 F Pulse Rate 97 97 91 Respiratory Rate 18 Blood Pressure 105/56 L 105/56 L 103/57 L Pulse Oximetry 98 Body Mass Index 23.4 Labs Labs: Laboratory Results - last 48 hr 11/23/20 11/24/20 08:23 18:58 Vitamin B12 496 Folate 9.6 Coronavirus (PCR) NEGATIVE Influenza Type A (PCR) NEGATIVE Influenza Type B (PCR) NEGATIVE RSV RNA Qual (PCR) NEGATIVE Imaging Radiology Impressions: ITS Impressions Hand X-Ray 11/19/20 23:37 IMPRESSION: Normal right hand. Hand X-Ray 11/22/20 16:20 IMPRESSION: No acute or healing fracture or dislocation. Medications Medications Current Medications Generic Name Dose Route Start Last Admin Trade Name Freq PRN Reason Stop Dose Admin Acetaminophen 650 mg 11/21/20 12:40 Acetaminophen 325 Mg Tablet PO Q6H PRN Headache/Pain Mild Scale (1-3) Al Hydroxide/Mg Hydroxide 30 ml 11/21/20 12:40 Magnesium Hydrox/Alum Hydrox 30 Ml Oral.Susp PO Q6H PRN Heartburn/Nausea Buspirone HCl 15 mg 11/19/20 09:00 11/25/20 08:25 Buspirone Hcl 5 Mg Tablet PO 15 mg TID EDDA Administration Chlorpromazine HCl 50 mg 11/23/20 20:48 11/24/20 22:23 Chlorpromazine Hcl 100 Mg Tablet PO 50 mg BEDTIME PRN Administration Insomnia Chlorpromazine HCl 100 mg 11/24/20 21:00 11/24/20 21:12 Chlorpromazine Hcl 100 Mg Tablet PO 100 mg BEDTIME EDDA Administration Clonidine HCl 0.1 mg 11/23/20 21:00 11/24/20 21:14 Clonidine Hcl 0.1 Mg Tablet PO 0.1 mg BEDTIME EDDA Administration Protocol Haloperidol 5 mg 11/21/20 14:25 11/23/20 13:55 Haloperidol 5 Mg Tablet PO 5 mg Q4H PRN Administration agitation Hydroxyzine HCl 25 mg 11/21/20 12:40 11/24/20 22:23 Hydroxyzine Hcl 25 Mg Tablet PO 25 mg BEDTIME PRN Administration Anxiety [place] Carbonate 900 mg 11/25/20 21:00 [place] Carbonate Er 450 Mg Tablet.Er PO BEDTIME EDDA [place] Carbonate 450 mg 11/26/20 09:00 [place] Carbonate Er 450 Mg Tablet.Er PO DAILY EDDA Lorazepam 2 mg 11/21/20 14:21 11/25/20 11:28 Lorazepam 1 Mg Tablet PO 2 mg Q6H PRN Administration anxiety/restlessness Magnesium Hydroxide 30 ml 11/21/20 12:40 Milk Of Magnesia 30 Ml Oral.Susp PO DAILY PRN Constipation Nicotine 21 mg 11/22/20 14:00 11/25/20 08:38 Nicotine 21 Mg Patch.Td24 TRANSDERMA 21 mg DAILY EDDA Administration Nicotine Polacrilex 4 mg 11/21/20 17:03 11/24/20 08:41 Nicotine Polacrilex 2 Mg Gum BUCCAL 4 mg Q2H PRN Administration Nicotine Cravings Oxcarbazepine 300 mg 11/22/20 21:00 11/25/20 08:25 Oxcarbazepine 300 Mg Tablet PO 300 mg BID EDDA Administration Sumatriptan Succinate 50 mg 11/19/20 15:11 Sumatriptan Succinate 50 Mg Tablet PO BID PRN Migraine Headache Trazodone HCl 50 mg 11/21/20 12:40 11/24/20 22:23 Trazodone Hcl 50 Mg Tablet PO 50 mg BEDTIME PRN Administration Insomnia Allergies Allergies Allergy/AdvReac Type Severity Reaction Status Date / Time amoxicillin [AMOXICILLIN] Allergy Intermediate RASH Verified 11/18/20 00:14 bupropion [BUPROPION] Allergy Unknown UNKNOWN Verified 11/18/20 00:14 Assessment & Plan Assessment & Plan (1) Amphetamine and amphetamine derivative dependence: Status: Acute Code(s): F15.20 - Other stimulant dependence, uncomplicated Assessment and Plan: encourage sobriety (2) Bipolar disorder: Status: Acute Code(s): F31.9 - Bipolar disorder, unspecified Assessment and Plan: 1. Continue [place] ER 450mg po daily and 900mg po qhs. 2. Continue trileptal 300mg po BID. 3. Continue thorazine 100mg po qhs Greater than 50% of the session was spent on counseling and/or coordination of care Reason for contiued inpatient stay Substantial Risk for: harm to others and inability to function
[2020-11-25] MEDS: Milk of Magnesia 30 ML ORAL.SUSP PO (16:34)
[2020-11-25 16:47] VITALS: BP 98/59; PULSE 111; TEMP 35.8
[2020-11-25] MEDS: Nicotine Polacrilex 2 MG GUM 4 MG BUCCAL (20:25)
[2020-11-25] MEDS: chlorproMAZINE HCl 100 MG TABLET PO (21:23)
[2020-11-25] MEDS: Lithium Carbonate ER 450 MG TABLET.ER 900 MG PO (21:23)
[2020-11-25 21:24] VITALS: BP 119/75; PULSE 104
[2020-11-25] MEDS: cloNIDine HCL 0.1 MG TABLET PO (21:24)
[2020-11-25] MEDS: hydrOXYzine HCL 25 MG TABLET PO (22:33)
[2020-11-25] MEDS: traZODone HCL 50 MG TABLET PO (22:33)
[2020-11-25] MEDS: chlorproMAZINE HCl 100 MG TABLET 50 MG PO (22:35)
[2020-11-26 04:50] VITALS: BP 118/77; PULSE 107; RESP 18; TEMP 36.3; O2SAT 97
[2020-11-26] MEDS: LORazepam 1 MG TABLET 2 MG PO (04:53)
[2020-11-26] MEDS: busPIRone HCl 5 MG TABLET 15 MG PO (08:02)
[2020-11-26] MEDS: Lithium Carbonate ER 450 MG TABLET.ER PO (08:02)
[2020-11-26] MEDS: OXcarbazepine 300 MG TABLET PO (08:03)
[2020-11-26] MEDS: Nicotine 21 MG PATCH.TD24 TRANSDERMA (08:03)
[2020-11-26] MEDS: Nicotine Polacrilex 2 MG GUM 4 MG BUCCAL (09:35)
--- NOTE | 2020-11-26 11:16 | P.DS_ITS ---
DS: Providers Provider Date of admission: 11/21/20 11:17 Primary care physician: Marcio Physician Attending physician on discharge: Brianna Dickey DS: Diagnosis Discharge Diagnosis (1) Amphetamine and amphetamine derivative dependence: Status: Acute (2) Bipolar disorder: Status: Acute DS: Medications Discharge Medications Home Medications: Home Medications Medication Instructions Recorded Confirmed sumatriptan succinate 1 tab PO BID-TID PRN 11/19/20 11/19/20 Previous Rx's Medication Instructions Recorded buspirone 15 mg PO TID 15 Days #135 tab 11/26/20 clonidine HCl 0.1 mg PO BEDTIME 30 Days #30 tab 11/26/20 lithium carbonate 900 mg PO BEDTIME 30 Days #60 tab 11/26/20 nicotine 21 mg TRANSDERMAL DAILY 30 Days 11/26/20 #30 ea trazodone 50 mg PO BEDTIME PRN 30 Days #30 11/26/20 tab lithium carbonate 450 mg PO DAILY 30 Days #30 tab 11/28/20 oxcarbazepine [Trileptal] 600 mg PO BID #14 tab 12/04/20 Discharge Plan Discharge Patient Disposition: Home, Self-Care Referrals: Mckenzie Campo, therapist, [facility] [Other] - 12/04/20 3:40 pm Lillie Chisholm [facility] intake, [facility] [place]Other] - 11/28/20 7:30 am Talha Layne APRN [Advanced Practice Nurse] - 12/23/20 8:40 am Tony Rey FNP [Nurse Practitioner] - 12/02/20 1:10 pm (VIA PHONE) Discharge Medications: New buspirone 5 mg Tablet 15 mg PO TID 15 Days Qty: 135 RF: 0 clonidine HCl 0.1 mg Tablet 0.1 mg PO BEDTIME 30 Days Qty: 30 RF: 0 trazodone 50 mg Tablet 50 mg PO BEDTIME PRN (Reason: Insomnia) 30 Days Qty: 30 RF: 0 lithium carbonate 450 mg Tablet Extended Release 900 mg PO BEDTIME 30 Days Qty: 60 RF: 0 nicotine 21 mg/24 hr Patch 24 Hour 21 mg transdermal DAILY 30 Days Qty: 30 RF: 0 Continued sumatriptan succinate 50 mg tablet 1 tab PO BID-TID PRN (Reason: Migraine Headache) RF: 0 Discontinued lorazepam [Ativan] 1 mg tablet 1 mg PO BEDTIME PRN (Reason: anxiety) Qty: 14 RF: 0 lithium carbonate 450 mg tablet extended release 1 tab PO TID RF: 0 buspirone 15 mg tablet 1 tab PO TID RF: 0 chlorpromazine 100 mg tablet 1 tab PO Q6H PRN (Reason: Agitation) RF: 0 No Action lithium carbonate 450 mg Tablet Extended Release 450 mg PO DAILY 30 Days Qty: 30 RF: 0 oxcarbazepine [Trileptal] 600 mg tablet 600 mg PO BID Qty: 14 RF: 0 Discharge Orders: Discharge Order (Routine); Ordered 11/26/20 Ordered By: Brianna Dickey Diet: regular diet Activity on Discharge: As tolerated Stand Alone Forms: Patient Portal Discharge page, Community Support Care Plan Goals: 1. take medications as prescribed Health Concerns: 1. follow up with PCP Plan of Treatment: 1. follow up with referrals Discharge Date/Time: 11/26/20 13:33 Mental Status Exam Mental Status Exam Narrative: Appearance: casually groomed, fair hygiene, in NAD Behavior: calm, cooperative Psychomotor: no agitation or retardation noted Speech: clear, normal rate/rhythm/volume, spontaneous TP: linear TC: no signs of psychosis, future oriented looking forward to continue PHP Mood: good Affect:bright, non labile SI:none HI:none AH/VH:none Delusions:none Insight/judgment:poor x 2. Memory/cog: alert, oriented x 3. grossly intact to conversational testing. Data Imaging Diagnostic Imaging Impressions Hand X-Ray 11/19/20 23:37 IMPRESSION: Normal right hand. Hand X-Ray 11/22/20 16:20 IMPRESSION: No acute or healing fracture or dislocation. DS: Summary Hospital Course Hospital Course: Narrative: Mr. Carlson is a 30 year-old male with history of Bipolar disorder and substance use (mostly hallucinogens/mushrooms/amphetamines) who was brought [place] [facility] [place] EMS after he called the police as he had argument with landlord and was threatening to harm him. In the ED, his utox was positive for THC, and amphetamines which he admits to abuse. In the ED, pt present with episodes of explosive behaviors, punching and threatening requiring IM haldol. On the unit, pt presents as mostly cooperative but restless and hyper verbal. Pt reports he has been using amphetamines and mushroom, MDMA. He notes that his behavior has been more explosive and aggressive and he is at times unable to control himself. He denies VH/AH but states he has experienced them before when using substances. He reports his sleep is poor, waking up frequently and having nightmares. he has been on prazosin in the past but had incontinence at night with this medication. He denies SI and HI but appears with very low frustration tolerance and engages in self injurious behaviors when frustrated. Pt had another incident again in the unit punching a wall. Pt however, has very limited insight into effect of substance use on his explosive and erratic behavior. Past Psychiatric History: Inpatient: 12/12/2019- depression/psychosis; 11/02/2019 Luis Chaudhry OP: [facility], waiting to be seen by prescriber. Medication trials: thorazine, buspar, lithium, olanzapine, seroquel, propanolol, prazosin (incontinence) HOSPITAL COURSE Mr. Carlson was placed on 15 minutes checks for safety. He was initially noted to be easily explosive if need not met right away. He showed a poor frustration tolerance. He was noted to be impulsive. He denies suicidal or homicidal ideation. He reported fair sleep, nightmares at times but stated that in the past prazosin had caused him night time incontinence. He was hyperverbal and tangential but able to be redirected. He denies VH/AH. He did not appear to be responding to internal stimuli. We discussed risks, benefits and alternative treatment options. He agreed to target symptoms of impulsivity, explosive and aggressive behaviors which are exacerbated by his substance abuse of amphetamines, MDMA, and mushrooms. He agreed to continue lithium. He was started on trileptal for aggression and impulsivity as lithium alone did not seem to control these symptoms. He reported that thorazine in the past had helped with anxiety and agitation. He was continued on this medication as well. He had one incident of getting frustrated because he was asked to wait for few minutes to get his PRN medication. He then punched the wall with right hand. He had xray that did not show any fractures. He gradually appeared much calmer, less explosive and able to have more control over his reactions when frustrated or upset. He minimized use of substances and its effects to his behavior but did agreed to continue both substance use treatment and psychiatric symptoms. His affect gradually appeared calmer, non labile. He attended assigned groups and was appropriate with peers. He reported improved sleep. Several days prior to discharge, pt did not showed any signs of aggression towards self or others. He adamantly denied suicidal or homicidal ideation throughout this admission. collateral information was gathered from GF who reported pt appeared much calmer and stable, back to baseline and denied any safety concerns. There were no need for restraints. Status at Discharge Cognitive/behavioral status at discharge: Pt is much less explosive, irritable. He denied SI/HI. No signs of aggression towards self or others several days prior to discharge. Functional status at discharge: independent ambulation Overall status at discharge: patient is back to baseline Time Spent with Patient Time attestation: Total time spent providing and/or coordinating discharge services: Time spent: Less than 30 minutes
[2020-11-26] MEDS: Acetaminophen 325 MG TABLET 650 MG PO (11:27)
== END 2020-11-26 13:33 | disposition home or self-care (01) | DRG 753 ==
LOC: HO.ED 21:08 → HO.PM5 11-21 11:26
PROVIDERS: Clinical Nurse Specialist Psychiatric/Mental Health, Adult; Internal Medicine; Admitting Provider Psychiatry & Neurology Psychiatry; Emergency Provider Student in an Organized Health Care Education/Training Program; Visit Provider Social Worker
DX: F31.9 Bipolar disorder, unspecified (principal); F15.20 Other stimulant dependence, uncomplicated; F17.210 Nicotine dependence, cigarettes, uncomplicated; F16.20 Hallucinogen dependence, uncomplicated; Z20.822 Contact with and (suspected) exposure to COVID-19; Z71.6 Tobacco abuse counseling; Z88.0 Allergy status to penicillin; Z79.899 Other long term (current) drug therapy
CPT/HCPCS: 0241U; 36415; 73120; 80061; 80178; 80307; 82607; 82746; 83036; 84443; 87635; 93005; 99285; Q0163

== ENCOUNTER 2020-12-03 02:31 | Emergency (ER) | payer MEDICAID, SELFPAY ==
--- NOTE | 2020-12-03 | ECG_ITS ---
Test Reason : MED OD Blood Pressure : / mmHG Vent. Rate : 082 BPM Atrial Rate : 082 BPM P-R Int : 154 ms QRS Dur : 102 ms QT Int : 378 ms P-R-T Axes : 047 075 061 degrees QTc Int : 441 ms Normal sinus rhythm Normal ECG When compared with ECG of 25-NOV-2020 09:14, No significant change was found Referred By: Pia Magana Electronically Signed By:MELLISA CASTLE MD
[2020-12-03 02:33] VITALS: BP 117/65; BP 124/66; PULSE 95; PULSE 97; RESP 16; O2SAT 95; O2SAT 96; BMI 23.3
[2020-12-03 04:00] VITALS: BP 93/51; PULSE 83; RESP 16; TEMP 36.8; O2SAT 96
[2020-12-03 04:27] LABS: Basophils Percent Auto 0.3 % (0-2); Eosinophils Absolute Auto 0.4 X10*3/uL (0.0-0.4); Eosinophils Percent Auto 3.2 % (0-4); Hematocrit 42.4 % (42-52); Hemoglobin 14.2 g/dl (14.0-18.0); Imm Gran Abs Auto 0.04 X10*3/uL (0.00-0.03); Imm Gran Pct Auto 0.3 % (0.0-0.4); Lymphocytes Absolute Auto 2.2 X10*3/uL (1.2-4.9); Lymphocytes Percent Auto 18.4 % (20-40); MANUAL DIFF FLAG NO; Mean Corpuscular HGB Conc 33.5 g/dl (31.0-36.0); Mean Corpuscular Hemoglobin 28.6 pg (27.0-33.0); Mean Corpuscular Volume 85.5 fL (80-98); Mean Platelet Volume 9.5 fL (9.4-12.4); Monocytes Absolute Auto 0.6 X10*3/uL (0.1-1.2); Monocytes Percent Auto 4.6 % (2-11); Neutrophils Absolute Auto 8.8 X10*3/uL (2.0-8.3); Neutrophils Percent Auto 73.2 % (45-73); Platelet Count 286 X10*3/uL (160-400); Red Blood Count 4.96 X10*6/uL (4.60-5.80); Red Cell Distribution Width 12.8 % (11.0-16.0); White Blood Count 12.1 X10*3/uL (4.8-10.8)
[2020-12-03 04:40] LABS: COVID-19 Test Negative (Negative); IDNOW Serial# 9DD0AD1C
[2020-12-03 04:46] LABS: Ethanol < 10 mg/dL
[2020-12-03 04:50] VITALS: BP 102/57; PULSE 86; RESP 20; O2SAT 97
--- NOTE | 2020-12-03 04:50 | ED_ITS ---
HPI - Overdose General Chief Complaint: Psychiatric Symptoms Stated Complaint: crisis /SI Time Seen by Provider: 12/03/20 03:55 Source: patient Mode of arrival: EMS History of Present Illness HPI Narrative: This is a 30-year-old male who is brought in by EMS after he endorses taking 5-7 of his prescribed Thorazine earlier in the day and denies intent to kill himself and states that it is his prescription medications for when he starts to feel manic. He denies any feelings of suicidality at this time and just wants to sleep. Related Data Home Medications Medication Instructions Recorded Confirmed sumatriptan succinate 1 tab PO BID-TID PRN 11/19/20 11/19/20 Previous Rx's Medication Instructions Recorded buspirone 15 mg PO TID 15 Days #135 tab 11/26/20 clonidine HCl 0.1 mg PO BEDTIME 30 Days #30 tab 11/26/20 lithium carbonate 900 mg PO BEDTIME 30 Days #60 tab 11/26/20 nicotine 21 mg TRANSDERMAL DAILY 30 Days 11/26/20 #30 ea oxcarbazepine 300 mg PO BID 30 Days #60 tab 11/26/20 trazodone 50 mg PO BEDTIME PRN 30 Days #30 11/26/20 tab lithium carbonate 450 mg PO DAILY 30 Days #30 tab 11/28/20 risperidone 1 mg PO BEDTIME #30 tab 11/28/20 Allergies Allergy/AdvReac Type Severity Reaction Status Date / Time amoxicillin [AMOXICILLIN] Allergy Intermediate RASH Verified 11/18/20 00:14 bupropion [BUPROPION] Allergy Unknown UNKNOWN Verified 11/18/20 00:14 Review of Systems Review of Systems: Pertinent positives and negatives as stated in HPI 10 point review systems is otherwise negative [facility] Past Medical History Source: nursing notes reviewed Medical History Bipolar disorder Perforated nasal septum Social History Social History Household Members: Significant Other and Friend(s) Housing: Apartment Alcohol intake: never Smoking Status: Current every day smoker Tobacco Type: Cigarette Packs Per Day: 1 Cigarettes Per Day: 20.0 Years Smoked: Age 16 Smoked in Last 30 Days: No Second Hand Smoke Exposure: Yes Use of substances other than those prescribed or required for medical reasons: No Substance Use Type: Amphetamines, Club/Tail [employer] Man Drugs, Crack/Cocaine, Hallucinogens and Marijuana Advance Directives: No service: No Sexual orientation: Straight/Heterosexual Physical Exam Vital Signs: Vital Signs: Last Vital Signs Temp 98.2 F 12/03/20 04:00 Pulse 84 12/03/20 06:41 Resp 14 12/03/20 06:41 BP 110/56 L 12/03/20 06:41 Pulse Ox 95 12/03/20 06:41 Body Mass Index 23.3 VITAL SIGNS: Reviewed. GENERAL: Well developed, well nourished, in no acute distress. HEAD: Normocephalic/atraumatic EYES: PERRLA, EOMI OROPHARYNX: no oral lesions noted, posterior pharynx clear NECK: Supple, no adenopathy LUNGS: Normal breath sounds. No adventitious sounds or accessory muscle use. SpO2<97> CARDIOVASCULAR: Regular rate and rhythm without noted murmurs ABDOMEN: Soft, non-tender, non-distended with bowel sounds. NEUROLOGIC: Sleeping but easily arousable and oriented x 4. Strength and sensation to light touch were grossly intact x 4. Course Course Course Narrative: This is a 30-year-old male with diagnoses of bipolar who presents after overdosing on his Thorazine but denying suicidal ideation. Poison control was contacted for the excess Thorazine: - EKG in 3 hours, if QRS widens consider bicarb - observation for 6 hours - if patient becomes tachycardic and/or starts developing cholinergic symptoms recommendation is for benzos. Review of all investigations without acute findings. COVID-19 is negative and urinalysis/U tox is pending. Signed out to Dr Gordillo. Reevaluation(s) Reevaluation #1: Physician observation started at 0500. Patient placed on position observation because he requires more time as per recommendations by poison control and will need to see behavioral team to be evaluated for possible inpatient admission. At the time observation was started the patient's vitals were stable, patient is drowsy and oriented, neuro: Nonfocal, CV RRR, lungs clear. MDM - Overdose Lab Data Result diagrams: 12/03/20 04:19 12/03/20 04:19 Labs: Lab Results 12/03/20 12/03/20 12/03/20 Range/Units 04:19 04:19 04:19 WBC 12.1 H (4.8-10.8) X10*3/uL RBC 4.96 (4.60-5.80) X10*6/uL Hgb 14.2 (14.0-18.0) g/dl Hct 42.4 (42-52) % MCV 85.5 (80-98) fL MCH 28.6 (27.0-33.0) pg MCHC 33.5 (31.0-36.0) g/dl RDW 12.8 (11.0-16.0) % Plt Count 286 (160-400) X10*3/uL MPV 9.5 (9.4-12.4) fL Immature Gran % (Auto) 0.3 (0.0-0.4) % Neut % (Auto) 73.2 H (45-73) % Lymph % (Auto) 18.4 L (20-40) % Churchill % (Auto) 4.6 (2-11) % Eos % (Auto) 3.2 (0-4) % Baso % (Auto) 0.3 (0-2) % Lymph # (Auto) 2.2 (1.2-4.9) X10*3/uL [place] # (Auto) 0.6 (0.1-1.2) X10*3/uL Eos # (Auto) 0.4 (0.0-0.4) X10*3/uL Baso # (Auto) 0.0 (0.0-0.2) X10*3/uL Abs Immat Gran (auto) 0.04 H (0.00-0.03) X10*3/uL Absolute Neuts (auto) 8.8 H (2.0-8.3) X10*3/uL Absolute Nucleated RBC 0.000 (0.0-0.012) X10*3/uL Nucleated RBC % (auto) 0.0 (0.0-0.2) /100WBC Sodium 137 (135-145) mmol/L Potassium 3.9 (3.3-5.1) mmol/L Chloride 101 (96-108) mmol/L Carbon Dioxide 32 H (22-29) mmol/L Anion Gap 8 L (12-20) BUN 12 (9-16) mg/dL Creatinine 0.84 (0.5-1.4) mg/dL Estim Creat Clear Calc 138.1 Estimated GFR > 60 Random Glucose 129 H (60-115) mg/dL Calcium 9.1 (8.4-10.2) mg/dL Magnesium 2.5 (1.6-2.6) mg/dL Total Bilirubin 0.5 (0.0-1.0) mg/dL AST 16 (5-37) U/L ALT 18 (0-40) U/L Alkaline Phosphatase 39 (39-117) U/L Total Protein 6.3 L (6.5-8.0) g/dL Albumin 4.3 (3.5-5.0) g/dL Ethyl Alcohol mg/dL COVID-19 ([place]) Negative (Negative) COVID-19 Clin Com See Note 12/03/20 Range/Units 04:19 WBC (4.8-10.8) X10*3/uL RBC (4.60-5.80) X10*6/uL Hgb (14.0-18.0) g/dl Hct (42-52) % MCV (80-98) fL MCH (27.0-33.0) pg MCHC (31.0-36.0) g/dl RDW (11.0-16.0) % Plt Count (160-400) X10*3/uL MPV (9.4-12.4) fL Immature Gran % (Auto) (0.0-0.4) % Neut % (Auto) (45-73) % Lymph % (Auto) (20-40) % Churchill % (Auto) (2-11) % Eos % (Auto) (0-4) % Baso % (Auto) (0-2) % Lymph # (Auto) (1.2-4.9) X10*3/uL [place] # (Auto) (0.1-1.2) X10*3/uL Eos # (Auto) (0.0-0.4) X10*3/uL Baso # (Auto) (0.0-0.2) X10*3/uL Abs Immat Gran (auto) (0.00-0.03) X10*3/uL Absolute Neuts (auto) (2.0-8.3) X10*3/uL Absolute Nucleated RBC (0.0-0.012) X10*3/uL Nucleated RBC % (auto) (0.0-0.2) /100WBC Sodium (135-145) mmol/L Potassium (3.3-5.1) mmol/L Chloride (96-108) mmol/L Carbon Dioxide (22-29) mmol/L Anion Gap (12-20) BUN (9-16) mg/dL Creatinine (0.5-1.4) mg/dL Estim Creat Clear Calc Estimated GFR Random Glucose (60-115) mg/dL Calcium (8.4-10.2) mg/dL Magnesium (1.6-2.6) mg/dL Total Bilirubin (0.0-1.0) mg/dL AST (5-37) U/L ALT (0-40) U/L Alkaline Phosphatase (39-117) U/L Total Protein (6.5-8.0) g/dL Albumin (3.5-5.0) g/dL Ethyl Alcohol < 10 mg/dL COVID-19 ([place]) (Negative) COVID-19 Clin Com ECG Data Attestation: I personally reviewed and interpreted this ECG as follows: Prior ECG tracings: available for review (Or 11/25/2020 no acute changes on comparison) Interpretation: Normal sinus rhythm, HR -82, no evidence of acute ischemia, HI/QTC are within normal limits, QRS-102 Discharge Plan Discharge Prescriptions: No Action sumatriptan succinate 50 mg tablet 1 tab PO BID-TID PRN (Reason: Migraine Headache) RF: 0 buspirone 5 mg Tablet 15 mg PO TID 15 Days Qty: 135 RF: 0 clonidine HCl 0.1 mg Tablet 0.1 mg PO BEDTIME 30 Days Qty: 30 RF: 0 trazodone 50 mg Tablet 50 mg PO BEDTIME PRN (Reason: Insomnia) 30 Days Qty: 30 RF: 0 oxcarbazepine 300 mg Tablet 300 mg PO BID 30 Days Qty: 60 RF: 0 lithium carbonate 450 mg Tablet Extended Release 900 mg PO BEDTIME 30 Days Qty: 60 RF: 0 nicotine 21 mg/24 hr Patch 24 Hour 21 mg transdermal DAILY 30 Days Qty: 30 RF: 0 risperidone 1 mg tablet 1 mg PO BEDTIME Qty: 30 RF: 0 lithium carbonate 450 mg Tablet Extended Release 450 mg PO DAILY 30 Days Qty: 30 RF: 0
--- NOTE | 2020-12-03 04:51 | PC.NURSE ---
SPOKE WITH POISON CONTROL WHO WANTS PATIENT MONITORED FOR 6 HOURS, WITH A REPEAT EKG IN A FEW HOURS. RECOMMENDATIONS FOR BICARB IF REPEAT EKG SHOWS WIDENING QRS. IF PATIENT BECOMES TACHYCARDIAC OR SHOWING CHOLINERGIC SYMPTOMS TREAT WITH BENZOS. CALLED THE [facility] TO CONFIRM MEDICATION FILLED. PATIENT TAKES 1/2 TAB OF THORAZINE AT BEDTIME FOR INSOMNIA. PATIENT REPORTING TAKING 5 TO 7 TABS, DIFFERENT AMOUNT TO DIFFERENT STAFF MEMBERS. PATIENT APPEARS COMFORTABLE, IS NOT TACHYCARDIAC OR SHOWING OTHER SIGNS OF FLUSHED OR INCREASED SALIVATION. WILL CONTINUE TO MONITOR.
[2020-12-03 04:52] LABS: Alanine Aminotransferase 18 U/L (0-40); Albumin Level 4.3 g/dL (3.5-5.0); Alkaline Phosphatase 39 U/L (39-117); Anion Gap 8 (12-20); Aspartate Amino Transferase 16 U/L (5-37); Bilirubin Total 0.5 mg/dL (0.0-1.0); Blood Urea Nitrogen 12 mg/dL (9-16); Calcium 9.1 mg/dL (8.4-10.2); Carbon Dioxide 32 mmol/L (22-29); Chloride 101 mmol/L (96-108); Creatinine Clr Calc Pharmacy 138.1; Estimated Glomerular Filt Rate > 60; Glucose Random 129 mg/dL (60-115); Magnesium 2.5 mg/dL (1.6-2.6); Potassium 3.9 mmol/L (3.3-5.1); Sodium 137 mmol/L (135-145); Total Protein 6.3 g/dL (6.5-8.0)
[2020-12-03 06:41] VITALS: BP 110/56; PULSE 84; RESP 14; O2SAT 95
--- NOTE | 2020-12-03 07:30 | ECG_ITS ---
Test Reason : CRISIS Blood Pressure : / mmHG Vent. Rate : 085 BPM Atrial Rate : 085 BPM P-R Int : 154 ms QRS Dur : 098 ms QT Int : 382 ms P-R-T Axes : 048 071 060 degrees QTc Int : 454 ms Normal sinus rhythm Normal ECG When compared with ECG of 03-DEC-2020 04:35, No significant change was found Referred By: Pia Magana Electronically Signed By:MELLISA CASTLE MD
--- NOTE | 2020-12-03 08:50 | PC.NURSE ---
Report received, pt ambulated to pod with steady gait, denies complaints. PT waiting to be seen by N.
--- NOTE | 2020-12-03 08:54 | PC.NURSE ---
PT MOVED TO [facility], REPORT GIVEN, SPOKE WITH POISON CONTROL ABOUT PATIENTS STATUS, NORMAL/ABNORMAL LABS, AND REPEAT EKG, PT IS AT BASELINE.
--- NOTE | 2020-12-03 09:15 | PC.NURSE ---
MONICA faxed and called. Verified with [facility]. Per Ji a clinician will not be available until the afternoon.
[2020-12-03 09:43] VITALS: RESP 17
[2020-12-03] MEDS: OXcarbazepine 300 MG TABLET PO (12:24)
[2020-12-03] MEDS: Nicotine 14 MG PATCH.TD24 TRANSDERMA (12:24)
[2020-12-03] MEDS: busPIRone HCl 5 MG TABLET 15 MG PO (12:24)
[2020-12-03] MEDS: Lithium Carbonate ER 450 MG TABLET.ER PO (12:25)
[2020-12-03 12:46] LABS: Amphetamine Screen Urine Not Detected (Not Detect); Barbiturates, Urine Not Detected (Not Detect); Benzodiazepines Screen Urine Not Detected (Not Detect); Cannabinoid Screen Urine POSITIVE (Not Detect); Cocaine Screen Urine Not Detected (Not Detect); Opiate Screen Urine Not Detected (Not Detect); Phencyclidine Screen Urine Not Detected (Not Detect)
[2020-12-03] MEDS: LORazepam 1 MG TABLET PO (13:20)
--- NOTE | 2020-12-03 14:15 | MHC.CARE ---
Met with pt after [employer] Brianna Dickey met with him in the ED. Suad Dickey stated that she thinks he is explosive but not suicidal. Pt agreed to continue PHP when he met with Keli. I was advised that Keli would not recommend inpatient for him. Upon meeting with the pt myself, pt stated that he believes he made a foolish but not suicidal mistake as his intent was not to complete suicide but rather to sleep as he was pre occupied with the argument he had with his girlfriend. Pt stated he wishes to return to PHP as he believes it has been of benefit to him.
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
== END 2020-12-03 15:00 | disposition home or self-care (01) ==
PROVIDERS: Emergency Provider Student in an Organized Health Care Education/Training Program
DX: T43.3X1A Poisoning by phenothiazine antipsychotics and neuroleptics, accidental (unintentional), initial encounter (principal); Y92.009 Unspecified place in unspecified non-institutional (private) residence as the place of occurrence of the external cause; F31.9 Bipolar disorder, unspecified; F63.81 Intermittent explosive disorder; Z20.822 Contact with and (suspected) exposure to COVID-19; F17.210 Nicotine dependence, cigarettes, uncomplicated
CPT/HCPCS: 36415; 80053; 80307; 80320; 83735; 85025; 87635; 93005; 99285

== ENCOUNTER 2020-12-10 07:03 | Outpatient (REF) | payer MEDICAID, SELFPAY ==
[2020-12-10 07:56] LABS: MANUAL DIFF FLAG NO
[2020-12-10 08:01] LABS: Basophils Percent Auto 0.2 % (0-2); Eosinophils Absolute Auto 0.4 X10*3/uL (0.0-0.4); Eosinophils Percent Auto 2.7 % (0-4); Hematocrit 44.5 % (42-52); Hemoglobin 14.7 g/dl (14.0-18.0); Imm Gran Abs Auto 0.08 X10*3/uL (0.00-0.03); Imm Gran Pct Auto 0.5 % (0.0-0.4); Lymphocytes Absolute Auto 2.4 X10*3/uL (1.2-4.9); Lymphocytes Percent Auto 14.7 % (20-40); Mean Corpuscular Hemoglobin 28.7 pg (27.0-33.0); Mean Corpuscular Volume 86.9 fL (80-98); Mean Platelet Volume 9.9 fL (9.4-12.4); Monocytes Absolute Auto 0.6 X10*3/uL (0.1-1.2); Monocytes Percent Auto 3.9 % (2-11); Neutrophils Absolute Auto 12.6 X10*3/uL (2.0-8.3); Platelet Count 301 X10*3/uL (160-400); Red Blood Count 5.12 X10*6/uL (4.60-5.80); Red Cell Distribution Width 13.2 % (11.0-16.0); White Blood Count 16.1 X10*3/uL (4.8-10.8)
[2020-12-10 08:35] LABS: Alanine Aminotransferase 30 U/L (0-40); Albumin Level 4.3 g/dL (3.5-5.0); Alkaline Phosphatase 40 U/L (39-117); Anion Gap 12 (12-20); Aspartate Amino Transferase 23 U/L (5-37); Bilirubin Total 0.4 mg/dL (0.0-1.0); Blood Urea Nitrogen 11 mg/dL (9-16); Calcium 9.5 mg/dL (8.4-10.2); Carbon Dioxide 28 mmol/L (22-29); Chloride 102 mmol/L (96-108); Estimated Glomerular Filt Rate > 60; Glucose Random 70 mg/dL (60-115); Potassium 4.3 mmol/L (3.3-5.1); Sodium 138 mmol/L (135-145); Total Protein 6.6 g/dL (6.5-8.0)
[2020-12-10 08:40] LABS: Lithium 0.98 mmol/L (0.60-1.20)
[2020-12-10 08:57] LABS: Thyroid Stimulating Hormone 2.88 uIU/mL (0.32-4.0)
== END 2020-12-10 07:04 | disposition home or self-care (01) ==
LOC: HO.LAB 07:03
PROVIDERS: PCP Nurse Practitioner Family; Visit Provider Clinical Nurse Specialist Psychiatric/Mental Health, Adult
DX: F31.9 Bipolar disorder, unspecified (principal)
CPT/HCPCS: 36415; 80053; 80178; 84443; 85025

== ENCOUNTER 2020-12-13 12:45 | Outpatient (RCR) | payer OTHER, SELFPAY ==
[2020-11-28 13:25] VITALS: BMI 23.3
--- NOTE | 2020-11-28 13:57 | PC.ADMIT ---
Patient is a 30 year old male who was referred to [facility] program by M/5 where patient was admitted d/t mood instability including manic sxs. Patient has a dx of bipolar d/o and substance use. Prior to hospitalization patient got into an altercation with his family and landlord. Reported HI towards his landlord. Patient was taken to the ED by ambulance. While in the ED patient was physically and verbally aggressive thus received a medication restraint. Patient toxicology screen was positive for amphetamines and cannabis. Patient stabilized on medications while inpatient. Presents alert and oriented x 4. Calm and cooperative. Stated he is here because, I need extra help, bad luck with psychiatry, I realize my disease, I know what I want to do with my illness . Patient reports his problem is more mental that addiction and now that he is on psychiatric medications he stated drugs are less appealing. Patient denied SI or HI. Recommended in addition to PHP he attend online substance groups for more support.
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
--- NOTE | 2020-11-29 08:36 | PC.NURSE ---
Called and left a message with the client's therapist Swapna POSADA client started PHP
--- NOTE | 2020-11-29 14:00 | PC.NURSE ---
case opened in treatment team
--- NOTE | 2020-12-02 07:05 | PC.NURSE ---
The client called to inform us that he has moved back to his apartment at [address] [place] [address]. He states the housing specialist will be coming at some point today. He will be in group this morning.
--- NOTE | 2020-12-02 11:35 | PC.NURSE ---
The client called during the second group to say that he could not return to program today because the hosing leather piece inspector and the fire department were going to inspect his apartment. I called him back to let him know that was okay and that we would see him tomorrow
--- NOTE | 2020-12-04 10:24 | PC.NURSE ---
Clinician reported pt left group unexpectedly. Called pt. He reported he was safe but became frustrated when he didn't feel like he could talk or relate to others in group. He reported feeling off due to the overdose yesterday. He reported he would be in second group.
--- NOTE | 2020-12-04 12:12 | PC.NURSE ---
I spoke to Santos and his girlfriend Kasia and they both agreed that Kasia will hold on to Nock's medications and administer them until Santos is feeling more stable. Brianna Gamez is aware.
--- NOTE | 2020-12-05 12:01 | PC.NURSE ---
Clinician reported pt began to lick a rolled marijuana or tobacco cigarette during group. Clinician redirected pt in group. Called to follow up. He reported it was a tobacco cigarette and he was very apologetic. Discussed that it is against [facility] contract that he agreed to. If he does it again we will have to ask him to leave the program. HE reported understanding.
--- NOTE | 2020-12-09 16:15 | HO.PHPPROGNO ---
Subjective Subjective Date of Service: 12/09/20 Reason For Visit: depression Interim History: Reports some depressed moments, some mood swings.Reports sleep with EDUARDO,FLACO Appetite poor due to dry mouth SI-passive at times-no plan, no intent Medical-denies issues Substance Use-Cannabis @ 2 grams daily. Reports increase in Trileptal to 600 mg bid last week, [place] 450/900 daily, Buspirone 15 mg tid, Clonidine 0.1 mg hs, Risperdal 1 mg hs, Thorazine 100 mg HS and 100 mg HS prn Believes that Trilpetal increase has created more symptoms than it has assisted in mgt. Asks to return to 300 mg bid. [facility]iscussed with [facility], pt filled 300 mg bid on 11/26/20. Also filled Risperdal 1 mg on 12/17/20. Review of Systems Review of Systems Yes all other systems are reviewed and are negative (denies) Psychiatric: Reports abnormal sleep pattern, Reports change in appetite, Reports depression, Reports mood swings and Reports suicidal ideation (passive-no plan or intent) Mental Status Exam Mental Status Exam Patient Appearance: Appropriate Patient Orientation: Person, Place, Time and Situation Level of Consciousness: Alert Patient Behavior: Appropriate and Talkative Mood Description: Flat Affect Description: Flat Patient Cognition Impaired: No Ability to Follow Directions: Good Speech Pattern: Spontaneous Speech Memory Description: Intact Hallucinations: None Delusions: Not Present Thought Process: Intact Thought Content: positive for Intact Depressive Symptoms: Insomnia, Increased Irritability, Difficulty Sleeping, Changes in Appetite and Thoughts of /Suicide (passive, no plan or intent) Judgement: Good Diagnostics Vital Signs (24Hr): Body Mass Index 23.3 Labs Labs: Will order for 12/10/20 [place], CMP, CBCD, TSH Assessment & Plan Assessment & Plan (1) Intermittent explosive disorder: Status: Acute Code(s): F63.81 - Intermittent explosive disorder (2) Bipolar disorder: Status: Acute Code(s): F31.9 - Bipolar disorder, unspecified Assessment and Plan: -Labs 12/10/20 [place] CBCD, CMP, TSH -Decrease Trileptal to 300 mg bid -Add Risperdal 0.5 mg daily prn agitation/lability (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: Status: Acute Code(s): F16.20 - Hallucinogen dependence, uncomplicated (4) Amphetamine and amphetamine derivative dependence: Status: Acute Code(s): F15.20 - Other stimulant dependence, uncomplicated (5) Cannabis use disorder, severe, dependence: Status: Acute Code(s): F12.20 - Cannabis dependence, uncomplicated Certification I certify that partial hospital treatment is medically necessary due to the symptoms and problems resulting from the patient's mental illness and the failure to treat the patient at the partial hospital level of care would likely result in the patient requiring inpatient psychiatric care which could not be prevented at a less intensive level of care. Greater than 50% of the session was spent on counseling and/or coordination of care Discharge Plan Discharge Attending provider: Ger Wells Medications: New oxcarbazepine [Trileptal] 600 mg tablet 600 mg PO BID Qty: 14 RF: 0 Continued lithium carbonate 450 mg Tablet Extended Release 450 mg PO DAILY 30 Days Qty: 30 RF: 0 Discontinued chlorpromazine 100 mg Tablet 100 mg PO BEDTIME 30 Days Qty: 30 RF: 0 chlorpromazine 100 mg Tablet 50 mg PO BEDTIME PRN (Reason: Insomnia) 30 Days Qty: 30 RF: 0 oxcarbazepine 300 mg Tablet 300 mg PO BID 30 Days Qty: 60 RF: 0 No Action sumatriptan succinate 50 mg tablet 1 tab PO BID-TID PRN (Reason: Migraine Headache) RF: 0 buspirone 5 mg Tablet 15 mg PO TID 15 Days Qty: 135 RF: 0 clonidine HCl 0.1 mg Tablet 0.1 mg PO BEDTIME 30 Days Qty: 30 RF: 0 trazodone 50 mg Tablet 50 mg PO BEDTIME PRN (Reason: Insomnia) 30 Days Qty: 30 RF: 0 lithium carbonate 450 mg Tablet Extended Release 900 mg PO BEDTIME 30 Days Qty: 60 RF: 0 nicotine 21 mg/24 hr Patch 24 Hour 21 mg transdermal DAILY 30 Days Qty: 30 RF: 0 Telehealth Telehealth Location of provider rendering services: practice address Location of patient: address on file Patient Identification confirmed using: Name, : Yes Telehealth method: video Patient verbally consented to treatment: Yes Patient verbally consented to billing insurance company: Yes Patient informed of any privacy concerns related to visit: Yes Time spent with patient (mins): 15
--- NOTE | 2020-12-10 07:39 | PC.NURSE ---
The client called and reports that he did not sleep well last night and is too tired to attend PHP today.
--- NOTE | 2020-12-10 11:06 | PC.NURSE ---
Patient stated he and his girlfriend have to be out of their apartment in 30 days. Patient requested information about housing resources. Emailed patient information about housing resources.
--- NOTE | 2020-12-11 12:03 | PC.NURSE ---
Reviewed patient lab results done on 12/10/20 including WBC 16.1, Neut pct auto 78.0, ImGran pct 0.5, lymp pct 14.7, Anc Neut ABS 12.6, ImGran Abs Auto 0.08, [place] level 0.98 and [facility] [place] Auo Diff done on 11/18/20 with Marisol Germain APRN and Brianna Dickey NP. Also reviewed with Marisol Germain APRN patient report that last dose of lithium was taken on 12/10/20 at 0100 and labs were drawn on 12/10/20 at 0712. Marisol Germain APRN to review lab results with patient today. Spoke to Leatha BOB from patients PCP's office of [facility] and reviewed the above mentioned lab results in addition to faxing results to PCP's office. Leatha BOB stated she will reach out to patient and f/u with [facility] regarding a f/u appointment.
--- NOTE | 2020-12-11 13:05 | PC.NURSE ---
Reviewed discharge with client. He has an intake schedules for a therapist at [facility] and he has an out patient prescriber.
--- NOTE | 2020-12-12 10:02 | PC.NURSE ---
Spoke to Jose this morning. He has a f/u appointment with his PCP regarding abnormal lab results done on 12/10/20 for Wednesday12/16/20 @ 2246.
--- NOTE | 2020-12-12 15:04 | PC.NURSE ---
I spoke with the clients therapist Sandra Campo . She reports that Santos told her that he used mushrooms, marijuana, adderal, klonopin and 600mg trileptal last Wednesday. We discussed Niko presentation here in groups. Sandra states that he appears calmer this week and that is congruent how he has been presenting in groups the past two days. She states that Santos has an appointment with Talha Hardy on December 23, 2020
--- NOTE | 2020-12-12 16:41 | PM.EVENT ---
Event Note Date of Service: 12/12/20 Event Note: Labs of 11/18/20 and 12/10/20 reviewed with pt. Madina Downey RN will schedule PCP follow up for pt.
--- NOTE | 2020-12-13 14:24 | PC.NURSE ---
the client left group this morning and did not return. I called him this afternoon at 2:10 and left a message to call. I called his emergency contact at 2:25 ( Josselyn Barahona).
--- NOTE | 2020-12-13 14:42 | PC.NURSE ---
Spoke with pt. He reported he was safe but upset that he was muted in group. He presented as angry and reported he called crisis last night but nothing came of it. He confirmed that he had crisis information and would go to the ED if necessary. Planned to talk on Wednesday.
--- NOTE | 2020-12-15 08:30 | PC.NURSE ---
left message for Deondre Campo re client inpatient admission
== END 2020-12-13 23:55 | disposition admitted as inpatient to this hospital (09) ==
LOC: HO.PHPA 12:45
PROVIDERS: Visit Provider Psychiatry & Neurology Psychiatry
DX: F31.9 Bipolar disorder, unspecified (principal); F63.81 Intermittent explosive disorder; F16.20 Hallucinogen dependence, uncomplicated; F12.20 Cannabis dependence, uncomplicated; F15.20 Other stimulant dependence, uncomplicated
CPT/HCPCS: 90791; 90853

== ENCOUNTER 2020-12-13 18:14 | Inpatient (IN) | payer OTHER, SELFPAY ==
--- NOTE | 2020-12-13 18:30 | ED.PSYCH ---
HPI - Psych General Chief Complaint: Psychiatric Symptoms Stated Complaint: SI Time Seen by Provider: 12/13/20 18:40 Source: patient Mode of arrival: ambulatory History of Present Illness HPI Narrative: 30-year-old male with past medical history of intermittent explosive disorder, bipolar disorder, substance abuse presents with suicidal ideation with attempted overdose on Thorazine. Patient presents via EMS on section 12. MD complaint: suicidal ideation and substance abuse Onset (ago): unknown Duration: constant History of same: Yes Relieving factors: none Exacerbating factors: drug use Context: recent drug abuse Associated psychiatric symptoms: depression and suicidal ideation Associated symptoms: denies other symptoms Treatments prior to arrival: placed on mental health hold If self harm: admits thoughts of self harm, has acted on plan and intentional overdose (Thorazine) Related Data Home Medications Medication Instructions Recorded Confirmed sumatriptan succinate 1 tab PO DAILY PRN 11/19/20 12/13/20 chlorpromazine 1 tab PO BEDTIME 12/13/20 12/13/20 risperidone 1 tab PO BEDTIME 12/13/20 12/13/20 Previous Rx's Medication Instructions Recorded buspirone 15 mg PO TID 15 Days #135 tab 11/26/20 clonidine HCl 0.1 mg PO BEDTIME 30 Days #30 tab 11/26/20 lithium carbonate 900 mg PO BEDTIME 30 Days #60 tab 11/26/20 nicotine 21 mg TRANSDERMAL DAILY 30 Days 11/26/20 #30 ea trazodone 50 mg PO BEDTIME PRN 30 Days #30 11/26/20 tab oxcarbazepine [Trileptal] 600 mg PO BID #14 tab 12/04/20 Allergies Allergy/AdvReac Type Severity Reaction Status Date / Time amoxicillin [AMOXICILLIN] Allergy Intermediate RASH Verified 11/18/20 00:14 bupropion [BUPROPION] Allergy Unknown UNKNOWN Verified 11/18/20 00:14 Review of Systems Review of Systems: Constitutional: No Fever, No Chills ENT/Mouth: No Ear Pain, No Nasal Congestion, No sore throat Eyes: No Eye Pain, No Swelling, No Redness Cardiovascular: No Chest Pain, No SOB Respiratory: No Cough, No Sputum, No Dyspnea Gastrointestinal: No Nausea, No Vomiting, No Diarrhea, No Hematochezia, No Melena Genitourinary: No Dysuria, No Urinary Frequency, No Hematuria Musculoskeletal: No Myalgias Skin: No Skin Lesions, No rash Neuro: No Weakness, No Numbness, No Paresthesias, No Dizziness, No Headache Psych: positive Anxiety, positive Depression, positive SI positive Thorazine overdose Heme/Lymph: No Lymphadenopathy Endocrine: No Polyuria, No Polydipsia Yes all other systems are reviewed and are negative [facility] Past Medical History Attestation statement: The following information was validated with the patient. Source: old records reviewed Medical History Bipolar disorder Perforated nasal septum Social History Social History Household Members: Significant Other and Friend(s) Housing: Apartment Alcohol intake: current Alcohol intake frequency: holidays/special occasions only Alcohol type: beer and hard liquor Smoking Status: Current every day smoker Tobacco Type: Cigarette Packs Per Day: 1 Cigarettes Per Day: 20.0 Years Smoked: Age 16 Second Hand Smoke Exposure: Yes Use of substances other than those prescribed or required for medical reasons: Yes Substance Use Type: Marijuana Advance Directives: No Advance Directives Information Provided: No service: No Sexual orientation: Straight/Heterosexual Physical Exam Vital Signs: Vital Signs: Last Vital Signs Temp 98.2 F 12/13/20 20:26 Pulse 95 12/13/20 20:26 Resp 16 12/13/20 20:26 BP 116/52 L 12/13/20 20:26 Pulse Ox 100 12/13/20 20:26 Body Mass Index 26.4 Appearance: Alert. Oriented X3. Moderate distress. Eyes: Pupils equal, round and reactive to light. ENT: Pharynx normal. Neck: Normal inspection. Neck supple. CVS: Normal heart rate and rhythm. Pulses normal. Respiratory: No respiratory distress. Breath sounds normal. Abdomen: Soft and nontender. Skin: Skin warm and dry. Normal skin color. Normal skin turgor. Extremities: No lower extremity edema. Neuro: No motor deficit. No sensory deficit. Course Course Course Narrative: 30-year-old male with past medical history of intermittent explosive disorder, bipolar disorder, substance abuse presents with suicidal ideation with attempted overdose on Thorazine. Plan of care is for CBC, Chem 7, drugs of abuse screen, urinalysis, and crisis consult. RN will discuss Thorazine overdose of 5 tablets poison control. Will order EKG, magnesium and troponin. Lab values are unremarkable, EKG is normal sinus. No indication of cardiac arrhythmia secondary to Thorazine overdose. Patient medically cleared. Care team consult completed at 10:32 p.m.. Physician observation started. Plan of care is for Section 12, and admit to M 5 in the morning. MDM - Psych Differential Diagnosis Differential diagnosis: Likely acute psychosis, suicidal ideation, bipolar disorder, depression, drug-induced psychotic disorder and substance abuse Medical Records Attestation: I reviewed the patient's medical records. Lab Data Attestation: I reviewed the patient's lab results. Result diagrams: 12/13/20 19:12 12/13/20 19:12 Labs: Lab Results 12/13/20 12/13/20 12/13/20 Range/Units 18:40 18:40 19:12 WBC 12.6 H (4.8-10.8) X10*3/uL RBC 5.08 (4.60-5.80) X10*6/uL Hgb 14.6 (14.0-18.0) g/dl Hct 43.4 (42-52) % MCV 85.4 (80-98) fL MCH 28.7 (27.0-33.0) pg MCHC 33.6 (31.0-36.0) g/dl RDW 12.9 (11.0-16.0) % Plt Count 266 (160-400) X10*3/uL MPV 9.7 (9.4-12.4) fL Immature Gran % (Auto) 0.8 H (0.0-0.4) % Neut % (Auto) 83.5 H (45-73) % Lymph % (Auto) 11.1 L (20-40) % [place] % (Auto) 2.9 (2-11) % Eos % (Auto) 1.4 (0-4) % Baso % (Auto) 0.3 (0-2) % Lymph # (Auto) 1.4 (1.2-4.9) X10*3/uL [place] # (Auto) 0.4 (0.1-1.2) X10*3/uL Eos # (Auto) 0.2 (0.0-0.4) X10*3/uL Baso # (Auto) 0.0 (0.0-0.2) X10*3/uL Abs Immat Gran (auto) 0.10 H (0.00-0.03) X10*3/uL Absolute Neuts (auto) 10.5 H (2.0-8.3) X10*3/uL Absolute Nucleated RBC 0.000 (0.0-0.012) X10*3/uL Nucleated RBC % (auto) 0.0 (0.0-0.2) /100WBC PT (10.8-13.0) SEC INR (0.9-1.1) APTT (24.1-38.0) SEC Sodium (135-145) mmol/L Potassium (3.3-5.1) mmol/L Chloride (96-108) mmol/L Carbon Dioxide (22-29) mmol/L Anion Gap (12-20) BUN (9-16) mg/dL Creatinine (0.5-1.4) mg/dL Estim Creat Clear Calc Estimated GFR Random Glucose (60-115) mg/dL Calcium (8.4-10.2) mg/dL Magnesium (1.6-2.6) mg/dL Total Bilirubin (0.0-1.0) mg/dL Direct Bilirubin (0.0-0.5) mg/dL AST (5-37) U/L ALT (0-40) U/L Alkaline Phosphatase (39-117) U/L Troponin I High Sens (<3.5-35.0) ng/L Total Protein (6.5-8.0) g/dL Albumin (3.5-5.0) g/dL Lipase (8-78) U/L Urine Color YELLOW Urine Appearance CLEAR Urine pH 7.0 (5.0-8.0) Ur Specific [place] 1.010 (1.005-1.025) Urine Protein NEG (NEG-TRACE) MG/DL Urine Glucose (UA) NEG (NEG) MG/DL Urine Ketones NEG (NEG) MG/DL Urine Blood NEG (NEG) Urine Nitrite NEG (NEG) Ur Leukocyte Esterase NEG (NEG) Salicylates (15-30) mg/dL Urine Opiates Screen Not Detected (Not Detect) Acetaminophen (<30) mcg/mL Ur Barbiturates Screen Not Detected (Not Detect) Ur Phencyclidine Scrn Not Detected (Not Detect) Ur Amphetamines Screen Not Detected (Not Detect) U Benzodiazepines Scrn Not Detected (Not Detect) [place] (0.60-1.20) mmol/L Urine Cocaine Screen Not Detected (Not Detect) U Marijuana (THC) Screen POSITIVE H (Not Detect) Ethyl Alcohol mg/dL COVID-19 ([place]) (Negative) COVID-19 Clin Com 12/13/20 12/13/20 12/13/20 Range/Units 19:12 19:12 19:12 WBC (4.8-10.8) X10*3/uL RBC (4.60-5.80) X10*6/uL Hgb (14.0-18.0) g/dl Hct (42-52) % MCV (80-98) fL MCH (27.0-33.0) pg MCHC (31.0-36.0) g/dl RDW (11.0-16.0) % Plt Count (160-400) X10*3/uL MPV (9.4-12.4) fL Immature Gran % (Auto) (0.0-0.4) % Neut % (Auto) (45-73) % Lymph % (Auto) (20-40) % [place] % (Auto) (2-11) % Eos % (Auto) (0-4) % Baso % (Auto) (0-2) % Lymph # (Auto) (1.2-4.9) X10*3/uL [place] # (Auto) (0.1-1.2) X10*3/uL Eos # (Auto) (0.0-0.4) X10*3/uL Baso # (Auto) (0.0-0.2) X10*3/uL Abs Immat Gran (auto) (0.00-0.03) X10*3/uL Absolute Neuts (auto) (2.0-8.3) X10*3/uL Absolute Nucleated RBC (0.0-0.012) X10*3/uL Nucleated RBC % (auto) (0.0-0.2) /100WBC PT 12.8 (10.8-13.0) SEC INR 1.1 (0.9-1.1) APTT 32.7 (24.1-38.0) SEC Sodium 139 (135-145) mmol/L Potassium 3.5 (3.3-5.1) mmol/L Chloride 104 (96-108) mmol/L Carbon Dioxide 22 (22-29) mmol/L Anion Gap 17 (12-20) BUN 10 (9-16) mg/dL Creatinine 0.92 (0.5-1.4) mg/dL Estim Creat Clear Calc 126.1 Estimated GFR > 60 Random Glucose 108 D (60-115) mg/dL Calcium 8.9 D (8.4-10.2) mg/dL Magnesium 2.0 (1.6-2.6) mg/dL Total Bilirubin 0.4 (0.0-1.0) mg/dL Direct Bilirubin 0.2 (0.0-0.5) mg/dL AST 27 (5-37) U/L ALT 37 (0-40) U/L Alkaline Phosphatase 41 (39-117) U/L Troponin I High Sens (<3.5-35.0) ng/L Total Protein 6.7 (6.5-8.0) g/dL Albumin 4.4 (3.5-5.0) g/dL Lipase 24 (8-78) U/L Urine Color Urine Appearance Urine pH (5.0-8.0) Ur Specific [place] (1.005-1.025) Urine Protein (NEG-TRACE) MG/DL Urine Glucose (UA) (NEG) MG/DL Urine Ketones (NEG) MG/DL Urine Blood (NEG) Urine Nitrite (NEG) Ur Leukocyte Esterase (NEG) Salicylates (15-30) mg/dL Urine Opiates Screen (Not Detect) Acetaminophen (<30) mcg/mL Ur Barbiturates Screen (Not Detect) Ur Phencyclidine Scrn (Not Detect) Ur Amphetamines Screen (Not Detect) U Benzodiazepines Scrn (Not Detect) [place] (0.60-1.20) mmol/L Urine Cocaine Screen (Not Detect) U Marijuana (THC) Screen (Not Detect) Ethyl Alcohol 36 mg/dL COVID-19 ([place]) (Negative) COVID-19 Clin Com 12/13/20 12/13/20 12/13/20 Range/Units 19:12 19:12 19:13 WBC (4.8-10.8) X10*3/uL RBC (4.60-5.80) X10*6/uL Hgb (14.0-18.0) g/dl Hct (42-52) % MCV (80-98) fL MCH (27.0-33.0) pg MCHC (31.0-36.0) g/dl RDW (11.0-16.0) % Plt Count (160-400) X10*3/uL MPV (9.4-12.4) fL Immature Gran % (Auto) (0.0-0.4) % Neut % (Auto) (45-73) % Lymph % (Auto) (20-40) % [place] % (Auto) (2-11) % Eos % (Auto) (0-4) % Baso % (Auto) (0-2) % Lymph # (Auto) (1.2-4.9) X10*3/uL [place] # (Auto) (0.1-1.2) X10*3/uL Eos # (Auto) (0.0-0.4) X10*3/uL Baso # (Auto) (0.0-0.2) X10*3/uL Abs Immat Gran (auto) (0.00-0.03) X10*3/uL Absolute Neuts (auto) (2.0-8.3) X10*3/uL Absolute Nucleated RBC (0.0-0.012) X10*3/uL Nucleated RBC % (auto) (0.0-0.2) /100WBC PT (10.8-13.0) SEC INR (0.9-1.1) APTT (24.1-38.0) SEC Sodium (135-145) mmol/L Potassium (3.3-5.1) mmol/L Chloride (96-108) mmol/L Carbon Dioxide (22-29) mmol/L Anion Gap (12-20) BUN (9-16) mg/dL Creatinine (0.5-1.4) mg/dL Estim Creat Clear Calc Estimated GFR Random Glucose (60-115) mg/dL Calcium (8.4-10.2) mg/dL Magnesium (1.6-2.6) mg/dL Total Bilirubin (0.0-1.0) mg/dL Direct Bilirubin (0.0-0.5) mg/dL AST (5-37) U/L ALT (0-40) U/L Alkaline Phosphatase (39-117) U/L Troponin I High Sens < 3.5 (<3.5-35.0) ng/L Total Protein (6.5-8.0) g/dL Albumin (3.5-5.0) g/dL Lipase (8-78) U/L Urine Color Urine Appearance Urine pH (5.0-8.0) Ur Specific [place] (1.005-1.025) Urine Protein (NEG-TRACE) MG/DL Urine Glucose (UA) (NEG) MG/DL Urine Ketones (NEG) MG/DL Urine Blood (NEG) Urine Nitrite (NEG) Ur Leukocyte Esterase (NEG) Salicylates < 5.0 L (15-30) mg/dL Urine Opiates Screen (Not Detect) Acetaminophen < 1 (<30) mcg/mL Ur Barbiturates Screen (Not Detect) Ur Phencyclidine Scrn (Not Detect) Ur Amphetamines Screen (Not Detect) U Benzodiazepines Scrn (Not Detect) [place] 0.79 (0.60-1.20) mmol/L Urine Cocaine Screen (Not Detect) U Marijuana (THC) Screen (Not Detect) Ethyl Alcohol mg/dL [place]-19 ([place] (Negative) COVID-19 Clin Com 12/13/20 Range/Units 19:20 WBC (4.8-10.8) X10*3/uL RBC (4.60-5.80) X10*6/uL Hgb (14.0-18.0) g/dl Hct (42-52) % MCV (80-98) fL MCH (27.0-33.0) pg MCHC (31.0-36.0) g/dl RDW (11.0-16.0) % Plt Count (160-400) X10*3/uL MPV (9.4-12.4) fL Immature Gran % (Auto) (0.0-0.4) % Neut % (Auto) (45-73) % Lymph % (Auto) (20-40) % [place] % (Auto) (2-11) % Eos % (Auto) (0-4) % Baso % (Auto) (0-2) % Lymph # (Auto) (1.2-4.9) X10*3/uL [place] # (Auto) (0.1-1.2) X10*3/uL Eos # (Auto) (0.0-0.4) X10*3/uL Baso # (Auto) (0.0-0.2) X10*3/uL Abs Immat Gran (auto) (0.00-0.03) X10*3/uL Absolute Neuts (auto) (2.0-8.3) X10*3/uL Absolute Nucleated RBC (0.0-0.012) X10*3/uL Nucleated RBC % (auto) (0.0-0.2) /100WBC PT (10.8-13.0) SEC INR (0.9-1.1) APTT (24.1-38.0) SEC Sodium (135-145) mmol/L Potassium (3.3-5.1) mmol/L Chloride (96-108) mmol/L Carbon Dioxide (22-29) mmol/L Anion Gap (12-20) BUN (9-16) mg/dL Creatinine (0.5-1.4) mg/dL Estim Creat Clear Calc Estimated GFR Random Glucose (60-115) mg/dL Calcium (8.4-10.2) mg/dL Magnesium (1.6-2.6) mg/dL Total Bilirubin (0.0-1.0) mg/dL Direct Bilirubin (0.0-0.5) mg/dL AST (5-37) U/L ALT (0-40) U/L Alkaline Phosphatase (39-117) U/L Troponin I High Sens (<3.5-35.0) ng/L Total Protein (6.5-8.0) g/dL Albumin (3.5-5.0) g/dL Lipase (8-78) U/L Urine Color Urine Appearance Urine pH (5.0-8.0) Ur Specific [place] (1.005-1.025) Urine Protein (NEG-TRACE) MG/DL Urine Glucose (UA) (NEG) MG/DL Urine Ketones (NEG) MG/DL Urine Blood (NEG) Urine Nitrite (NEG) Ur Leukocyte Esterase (NEG) Salicylates (15-30) mg/dL Urine Opiates Screen (Not Detect) Acetaminophen (<30) mcg/mL Ur Barbiturates Screen (Not Detect) Ur Phencyclidine Scrn (Not Detect) Ur Amphetamines Screen (Not Detect) U Benzodiazepines Scrn (Not Detect) [place] (0.60-1.20) mmol/L Urine Cocaine Screen (Not Detect) U Marijuana (THC) Screen (Not Detect) Ethyl Alcohol mg/dL COVID-19 ([place]) Negative (Negative) COVID-19 Clin Com See Note ECG Data Attestation: I personally reviewed and interpreted this ECG as follows: ECG interpretation date: 12/13/20 ECG interpretation time: 19:37 Prior ECG tracings: not available for review Interpretation: Ventricular rate 97 beats per minute, RI interval 120, QRS 78, QT 364, QTC 462, normal sinus rhythm, normal EKG, prior EKG is unavailable secondary to system 130 error Discharge Plan Discharge Clinical Impression: Bipolar disorder, Acute psychosis, Suicidal ideation, Intentional thioridazine overdose Patient Disposition: Admitted As Inpatient
[2020-12-13 18:31] VITALS: BP 117/69; PULSE 101; RESP 18; TEMP 36.7; O2SAT 96; BMI 26.4
--- NOTE | 2020-12-13 18:31 | ECG_ITS ---
Test Reason : OVERDOSE Blood Pressure : / mmHG Vent. Rate : 086 BPM Atrial Rate : 086 BPM P-R Int : 154 ms QRS Dur : 110 ms QT Int : 372 ms P-R-T Axes : 060 078 077 degrees QTc Int : 445 ms Normal sinus rhythm Normal ECG When compared with ECG of 03-DEC-2020 07:51, No significant change was found Referred By: Jeanie Myers Electronically Signed By:HAILEE WASHINGTON
--- NOTE | 2020-12-13 18:44 | PC.NURSE ---
Poison control contacted due to thorazine overdose. Recommended labs - CMP, magnesium, etoh, tylenol, salycilate; 12 lead EKG, symptomatic care with benzos for seizure, agitation, tachycardia. If QTC longer than 500miliseconds replenish electrolytes, if magnesium is below 2 supplement, if potassium is below 4 supplement.
[2020-12-13 18:48] VITALS: BP 117/69; PULSE 101; RESP 18; TEMP 36.7; O2SAT 96
[2020-12-13 18:57] LABS: Glucose Urine UA NEG (NEG); Leukocyte Esterase Urine NEG (NEG); Nitrite Urine NEG (NEG); Urine Blood NEG (NEG); Urine Ketones NEG (NEG); Urine Protein NEG (NEG-TRACE)
[2020-12-13 19:04] LABS: Appearance Urine CLEAR; Color Urine YELLOW
[2020-12-13 19:11] LABS: Amphetamine Screen Urine Not Detected (Not Detect); Barbiturates, Urine Not Detected (Not Detect); Benzodiazepines Screen Urine Not Detected (Not Detect); Cannabinoid Screen Urine POSITIVE (Not Detect); Cocaine Screen Urine Not Detected (Not Detect); Opiate Screen Urine Not Detected (Not Detect); Phencyclidine Screen Urine Not Detected (Not Detect)
[2020-12-13 19:25] LABS: MANUAL DIFF FLAG NO
[2020-12-13 19:32] LABS: INTERNATIONAL NORM RATIO 1.1 (0.9-1.1); Prothrombin Time 12.8 SEC (10.8-13.0)
[2020-12-13 19:34] LABS: Partial Thromboplastin Time 32.7 SEC (24.1-38.0)
[2020-12-13 19:38] LABS: Basophils Percent Auto 0.3 % (0-2); Eosinophils Absolute Auto 0.2 X10*3/uL (0.0-0.4); Eosinophils Percent Auto 1.4 % (0-4); Hematocrit 43.4 % (42-52); Hemoglobin 14.6 g/dl (14.0-18.0); Imm Gran Pct Auto 0.8 % (0.0-0.4); Lymphocytes Absolute Auto 1.4 X10*3/uL (1.2-4.9); Lymphocytes Percent Auto 11.1 % (20-40); Mean Corpuscular HGB Conc 33.6 g/dl (31.0-36.0); Mean Corpuscular Hemoglobin 28.7 pg (27.0-33.0); Mean Corpuscular Volume 85.4 fL (80-98); Mean Platelet Volume 9.7 fL (9.4-12.4); Monocytes Absolute Auto 0.4 X10*3/uL (0.1-1.2); Monocytes Percent Auto 2.9 % (2-11); Neutrophils Absolute Auto 10.5 X10*3/uL (2.0-8.3); Neutrophils Percent Auto 83.5 % (45-73); Platelet Count 266 X10*3/uL (160-400); Red Blood Count 5.08 X10*6/uL (4.60-5.80); Red Cell Distribution Width 12.9 % (11.0-16.0); White Blood Count 12.6 X10*3/uL (4.8-10.8)
[2020-12-13 19:45] LABS: Lithium 0.79 mmol/L (0.60-1.20)
[2020-12-13 19:45] LABS: COVID-19 Test Negative (Negative); IDNOW Serial# 9DD0AD1C
[2020-12-13 19:50] LABS: Ethanol 36 mg/dL
[2020-12-13 19:52] LABS: Acetaminophen LAB < 1 mcg/mL (<30); Salicylate < 5.0 mg/dL (15-30)
[2020-12-13 19:54] LABS: Alanine Aminotransferase 37 U/L (0-40); Albumin Level 4.4 g/dL (3.5-5.0); Alkaline Phosphatase 41 U/L (39-117); Anion Gap 17 (12-20); Aspartate Amino Transferase 27 U/L (5-37); Bilirubin Direct 0.2 mg/dL (0.0-0.5); Bilirubin Total 0.4 mg/dL (0.0-1.0); Blood Urea Nitrogen 10 mg/dL (9-16); Calcium 8.9 mg/dL (8.4-10.2); Carbon Dioxide 22 mmol/L (22-29); Chloride 104 mmol/L (96-108); Creatinine Clr Calc Pharmacy 126.1; Estimated Glomerular Filt Rate > 60; Glucose Random 108 mg/dL (60-115); Lipase 24 U/L (8-78); Potassium 3.5 mmol/L (3.3-5.1); Sodium 139 mmol/L (135-145); Total Protein 6.7 g/dL (6.5-8.0)
[2020-12-13 19:56] LABS: Troponin-I High Sensitivity < 3.5 ng/L (<3.5-35.0)
--- NOTE | 2020-12-13 20:17 | PC.NURSE ---
Patient in his bed lying, calm and quiet, denied distress, will continue to monitor.
[2020-12-13 20:26] VITALS: BP 116/52; PULSE 95; RESP 16; TEMP 36.8; O2SAT 100
--- NOTE | 2020-12-13 20:29 | PC.NURSE ---
Poison control called, updated lab results as asked, patient cleared per them, no follow up lab required.
--- NOTE | 2020-12-13 21:01 | PC.NURSE ---
MONICA faxed/called/spoke with Madhu/confirmed receipt of referral, no ETA at this time.
--- NOTE | 2020-12-13 22:32 | PC.NURSE ---
Patient just got assessed by care team, disposition sec-12. inpatient bed search, patient made aware didn't take it well d/t patient's housing concern. Provider made aware, patient made call, loudly told the person to take care of the house. back in bed, refused to take any medication help him calm down, will continue to monitor.
--- NOTE | 2020-12-13 22:42 | MHC.CARE ---
Pt is assessed by CARE Team. Plan is for pt to be admitted to M5, eta unknown. He is not agreeable with the plan and is placed on a sect 12 for safety. Full assessment to follow.
[2020-12-14] MEDS: LORazepam 1 MG TABLET 2 MG PO (06:58)
--- NOTE | 2020-12-14 07:00 | PC.NURSE ---
Patient upset and angry over his disposition, threw away his morning tray, provider notified/ordered Ativan 2 mg po/administered, patient complaint will continue to monitor.
--- NOTE | 2020-12-14 07:17 | PC.NURSE ---
Report received from PAULINO Rodriguez. Pt awake on arrival, medicated w/ ativan by previous shift, now resting, resp unlabored.
[2020-12-14 08:00] VITALS: RESP 20
--- NOTE | 2020-12-14 09:32 | PC.NURSE ---
Pt resting, resp unlabored. Report given to Familia Cao RN on M5.
--- NOTE | 2020-12-14 09:47 | PC.NURSE ---
Report given to PAULINO Eastman on M5.
[2020-12-14 10:00] VITALS: RESP 20
--- NOTE | 2020-12-14 10:42 | PC.NURSE ---
Care team in to transfer pt out to M5. Pt cooperative w/ transfer, no concerns reported.
[2020-12-14] MEDS: Nicotine 21 MG PATCH.TD24 TRANSDERMA (11:42)
[2020-12-14] MEDS: LORazepam 1 MG TABLET PO ×3 (11:43→20:23)
[2020-12-14] MEDS: HaloperidoL 5 MG TABLET PO ×2 (11:43→16:04)
--- NOTE | 2020-12-14 14:17 | PC.ADMIT ---
30 year old male DX: BiPolar disorder, PTSD, Hallucinogen use disorder, Stimulant use disorder, Cannabis use disorder. Arrived to unit approx 1030 am. Signed CV however declined to sign RADHA or unit paperwork. States he is angry, does not agree he should be here, declines to participate in admission assessment at this time. Information obtained from crisis evaluation. Patient difficult to engage, presents with constricted, angry affect. Agitated and irritable. Referred for admission by CARE team following arrival to ED via ambulance secondary to making suicidal statement to ex gf and taking 5 100mg Thorazine. Patient given 5mg Haldol and 1mg Ativan shortly after arrival to unit. Patient reports he just wants to sleep and was not going to eat. Patient has multiple stressors including legal problems, including restraining order, recent break up and impending homelessness. Patient has recently been in [facility] program. Prior admission to with recent discharge. Patient tox screen positive for cannabis. COVID negative. No acute medical problems, allergies include Amoxicillin, Bupropion. Patient familiar with unit from previous admission, placed on 15 minute checks. See crisis eval for further details.
[2020-12-14] MEDS: busPIRone HCl 5 MG TABLET 15 MG PO ×2 (15:11→20:20)
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
[2020-12-14] MEDS: risperiDONE 1 MG TABLET PO ×2 (17:37→20:20)
[2020-12-14 19:02] VITALS: BMI 23.3
[2020-12-14] MEDS: Lithium Carbonate ER 450 MG TABLET.ER 900 MG PO (20:20)
[2020-12-14] MEDS: chlorproMAZINE HCl 100 MG TABLET PO (20:20)
[2020-12-14] MEDS: OXcarbazepine 300 MG TABLET 600 MG PO (20:20)
[2020-12-14 20:21] VITALS: BP 118/69; PULSE 107
[2020-12-14] MEDS: cloNIDine HCL 0.1 MG TABLET PO (20:21)
[2020-12-14] MEDS: traZODone HCL 50 MG TABLET PO (20:28)
[2020-12-14 21:00] VITALS: BP 116/69; PULSE 107; TEMP 37.1
[2020-12-15] MEDS: busPIRone HCl 5 MG TABLET 15 MG PO ×3 (08:10→20:04)
[2020-12-15] MEDS: Nicotine 21 MG PATCH.TD24 TRANSDERMA (08:10)
[2020-12-15] MEDS: OXcarbazepine 300 MG TABLET 600 MG PO ×2 (08:10→20:03)
--- NOTE | 2020-12-15 08:30 | HO.PSYCHPN ---
Subjective Subjective Date of Service: 12/15/20 Reason For Visit: Intermittent explosive disorder Subjective Notes: Conditional Voluntary Interim History: I just don't know how to deal with the depression piece of this. I prefer nicki. Review of meds, stressors, options for his future. Identifies a lack of knowledge of coping skills to manage depressive sx. Review of regime-Will add Clonidine prn and Risperdal prn for current sx. Will discontinue Haldol prn. Reports girlfriend will go to a sober house in [place]-he is distressed as she will not answer his calls today. Denies medical sx, medication SE, just very depressed lately and hard to manage it. Medication Compliance: Yes Side effects from medications: No Attending Groups: No Review of Systems Reports behavioral changes Psychiatric: Reports anxiety, Reports behavioral changes, Reports depression, Reports hopelessness, Reports irritability, Reports anhedonia, Reports mood swings and Reports suicidal ideation (currently denies active SI-passive SI present) Mental Status Exam Mental Status Exam Patient Appearance: Fatigued Patient Orientation: Person, Place, Time and Situation Level of Consciousness: Alert Patient Behavior: Talkative, Anxious, Fearful, Fatigued, Distractible and Good Eye Contact Mood Description: Withdrawn, Depressed and Angry Affect Description: Constricted Patient Cognition Impaired: No Ability to Follow Directions: Good Speech Pattern: Clear and Spontaneous Speech Memory Description: Intact Hallucinations: None Delusions: Not Present Thought Process: Distracted and Rumination Thought Content: positive for [place], positive for Circumstantial, positive for Perseveration, positive for Preoccupation and positive for Suicidal Ideation Depressive Symptoms: Increased Anxiety, Diff. Making Decisions, Increased Irritability, Loss of Int. in Activity, Feelings of Worthlessness, Hopelessness, Unhappiness, Increased Fatigue, Thoughts of /Suicide, Low Self Esteem and Difficulty Concentrating Abnormal Motor Activity Signs and Symptoms: Agitation Judgement: Fair Diagnostics Vital Signs (24Hr): Vital Signs - 24 hr 12/14/20 10:00 12/14/20 20:21 12/14/20 21:00 Temperature 98.7 F Pulse Rate 107 H 107 H Respiratory Rate 20 Blood Pressure 118/69 116/69 Body Mass Index 23.3 Labs Results: 12/13/20 19:12 12/13/20 19:12 Labs: Laboratory Results - last 48 hr 12/13/20 12/13/20 12/13/20 18:40 18:40 19:12 WBC 12.6 H RBC 5.08 Hgb 14.6 Hct 43.4 MCV 85.4 MCH 28.7 MCHC 33.6 RDW 12.9 Plt Count 266 MPV 9.7 Immature Gran % (Auto) 0.8 H Neut % (Auto) 83.5 H Lymph % (Auto) 11.1 L [place] % (Auto) 2.9 Eos % (Auto) 1.4 Baso % (Auto) 0.3 Lymph # (Auto) 1.4 [place] # (Auto) 0.4 Eos # (Auto) 0.2 Baso # (Auto) 0.0 Abs Immat Gran (auto) 0.10 H Absolute Neuts (auto) 10.5 H Absolute Nucleated RBC 0.000 Nucleated RBC % (auto) 0.0 PT INR APTT Sodium Potassium Chloride Carbon Dioxide Anion Gap BUN Creatinine Estim Creat Clear Calc Estimated GFR Random Glucose Calcium Magnesium Total Bilirubin Direct Bilirubin AST ALT Alkaline Phosphatase Troponin I High Sens Total Protein Albumin Lipase Urine Color YELLOW Urine Appearance CLEAR Urine pH 7.0 Ur Specific [place] 1.010 Urine Protein NEG Urine Glucose (UA) NEG Urine Ketones NEG Urine Blood NEG Urine Nitrite NEG Ur Leukocyte Esterase NEG Salicylates Urine Opiates Screen Not Detected Acetaminophen Ur Barbiturates Screen Not Detected Ur Phencyclidine Scrn Not Detected Ur Amphetamines Screen Not Detected U Benzodiazepines Scrn Not Detected [place] Urine Cocaine Screen Not Detected U Marijuana (THC) Screen POSITIVE H Ethyl Alcohol COVID-19 ([place]) COVID-19 Clin Com 12/13/20 12/13/20 12/13/20 19:12 19:12 19:12 WBC RBC Hgb Hct MCV MCH MCHC RDW Plt Count MPV Immature Gran % (Auto) Neut % (Auto) Lymph % (Auto) [place] % (Auto) Eos % (Auto) Baso % (Auto) Lymph # (Auto) [place] # (Auto) Eos # (Auto) Baso # (Auto) Abs Immat Gran (auto) Absolute Neuts (auto) Absolute Nucleated RBC Nucleated RBC % (auto) PT 12.8 INR 1.1 APTT 32.7 Sodium 139 Potassium 3.5 Chloride 104 Carbon Dioxide 22 Anion Gap 17 BUN 10 Creatinine 0.92 Estim Creat Clear Calc 126.1 Estimated GFR > 60 Random Glucose 108 D Calcium 8.9 D Magnesium 2.0 Total Bilirubin 0.4 Direct Bilirubin 0.2 AST 27 ALT 37 Alkaline Phosphatase 41 Troponin I High Sens Total Protein 6.7 Albumin 4.4 Lipase 24 Urine Color Urine Appearance Urine pH Ur Specific [place] Urine Protein Urine Glucose (UA) Urine Ketones Urine Blood Urine Nitrite Ur Leukocyte Esterase Salicylates Urine Opiates Screen Acetaminophen Ur Barbiturates Screen Ur Phencyclidine Scrn Ur Amphetamines Screen U Benzodiazepines Scrn [place] Urine Cocaine Screen U Marijuana (THC) Screen Ethyl Alcohol 36 COVID-19 ([place] COVID-19 Clin Com 12/13/20 12/13/20 12/13/20 19:12 19:12 19:13 WBC RBC Hgb Hct MCV MCH MCHC RDW Plt Count MPV Immature Gran % (Auto) Neut % (Auto) Lymph % (Auto) [place] % (Auto) Eos % (Auto) Baso % (Auto) Lymph # (Auto) [place] # (Auto) Eos # (Auto) Baso # (Auto) Abs Immat Gran (auto) Absolute Neuts (auto) Absolute Nucleated RBC Nucleated RBC % (auto) PT INR APTT Sodium Potassium Chloride Carbon Dioxide Anion Gap BUN Creatinine Estim Creat Clear Calc Estimated GFR Random Glucose Calcium Magnesium Total Bilirubin Direct Bilirubin AST ALT Alkaline Phosphatase Troponin I High Sens < 3.5 Total Protein Albumin Lipase Urine Color Urine Appearance Urine pH Ur Specific [place] Urine Protein Urine Glucose (UA) Urine Ketones Urine Blood Urine Nitrite Ur Leukocyte Esterase Salicylates < 5.0 L Urine Opiates Screen Acetaminophen < 1 Ur Barbiturates Screen Ur Phencyclidine Scrn Ur Amphetamines Screen U Benzodiazepines Scrn [place] 0.79 Urine Cocaine Screen U Marijuana (THC) Screen Ethyl Alcohol COVID-19 ([place] COVID-19 Clin Com 12/13/20 19:20 WBC RBC Hgb Hct MCV MCH MCHC RDW Plt Count MPV Immature Gran % (Auto) Neut % (Auto) Lymph % (Auto) [place] % (Auto) Eos % (Auto) Baso % (Auto) Lymph # (Auto) [place] # (Auto) Eos # (Auto) Baso # (Auto) Abs Immat Gran (auto) Absolute Neuts (auto) Absolute Nucleated RBC Nucleated RBC % (auto) PT INR APTT Sodium Potassium Chloride Carbon Dioxide Anion Gap BUN Creatinine Estim Creat Clear Calc Estimated GFR Random Glucose Calcium Magnesium Total Bilirubin Direct Bilirubin AST ALT Alkaline Phosphatase Troponin I High Sens Total Protein Albumin Lipase Urine Color Urine Appearance Urine pH Ur Specific [place] Urine Protein Urine Glucose (UA) Urine Ketones Urine Blood Urine Nitrite Ur Leukocyte Esterase Salicylates Urine Opiates Screen Acetaminophen Ur Barbiturates Screen Ur Phencyclidine Scrn Ur Amphetamines Screen U Benzodiazepines Scrn [place] Urine Cocaine Screen U Marijuana (THC) Screen Ethyl Alcohol COVID-19 ([place]) Negative COVID-19 Clin Com See Note Medications Medications Current Medications Generic Name Dose Route Start Last Admin Trade Name Freq PRN Reason Stop Dose Admin Acetaminophen 650 mg 12/14/20 11:06 Acetaminophen 325 Mg Tablet PO Q6H PRN Headache/Pain Mild Scale (1-3) Al Hydroxide/Mg Hydroxide 30 ml 12/14/20 11:06 Magnesium Hydrox/Alum Hydrox 30 Ml Oral.Susp PO Q6H PRN Heartburn/Nausea Buspirone HCl 15 mg 12/14/20 15:00 12/15/20 08:10 Buspirone Hcl 5 Mg Tablet PO 15 mg TID EDDA Administration Chlorpromazine HCl 100 mg 12/14/20 21:00 12/14/20 20:20 Chlorpromazine Hcl 100 Mg Tablet PO 100 mg BEDTIME EDDA Administration Clonidine HCl 0.1 mg 12/14/20 21:00 12/14/20 20:21 Clonidine Hcl 0.1 Mg Tablet PO 0.1 mg BEDTIME EDDA Administration Protocol Haloperidol 5 mg 12/14/20 11:14 12/14/20 16:04 Haloperidol 5 Mg Tablet PO 5 mg Q4H PRN Administration agitation Hydroxyzine HCl 50 mg 12/14/20 22:16 Hydroxyzine Hcl 50 Mg Tablet PO Q6H PRN Anxiety [place] Carbonate 900 mg 12/14/20 21:00 12/14/20 20:20 [place] Carbonate Er 450 Mg Tablet.Er PO 900 mg BEDTIME EDDA Administration Lorazepam 1 mg 12/14/20 11:15 12/14/20 20:23 Lorazepam 1 Mg Tablet PO 1 mg Q4H PRN Administration agitation Magnesium Hydroxide 30 ml 12/14/20 11:06 Milk Of Magnesia 30 Ml Oral.Susp PO DAILY PRN Constipation Nicotine 21 mg 12/14/20 11:30 12/15/20 08:10 Nicotine 21 Mg Patch.Td24 TRANSDERMA 21 mg DAILY EDDA Administration Oxcarbazepine 600 mg 12/14/20 21:00 12/15/20 08:10 Oxcarbazepine 300 Mg Tablet PO 600 mg BID EDDA Administration Risperidone 1 mg 12/14/20 21:00 12/14/20 20:20 Risperidone 1 Mg Tablet PO 1 mg BEDTIME EDDA Administration Sumatriptan Succinate 50 mg 12/14/20 10:03 Sumatriptan Succinate 50 Mg Tablet PO DAILY PRN Migraine Headache Trazodone HCl 100 mg 12/14/20 22:14 Trazodone Hcl 100 Mg Tablet PO BEDTIME PRN Insomnia Allergies Allergies Allergy/AdvReac Type Severity Reaction Status Date / Time amoxicillin [AMOXICILLIN] Allergy Intermediate RASH Verified 11/18/20 00:14 bupropion [BUPROPION] Allergy Unknown UNKNOWN Verified 11/18/20 00:14 Assessment & Plan Assessment & Plan (1) Intentional thioridazine overdose: Qualifiers: Encounter type: initial encounter Qualified Code(s): T43.3X2A - Poisoning by phenothiazine antipsychotics and neuroleptics, intentional self-harm, initial encounter Status: Acute Code(s): T43.3X2A - Poisoning by phenothiazine antipsychotics and neuroleptics, intentional self-harm, initial encounter (2) Cannabis use disorder, severe, dependence: Status: Acute Code(s): F12.20 - Cannabis dependence, uncomplicated (3) Intermittent explosive disorder: Status: Acute Code(s): F63.81 - Intermittent explosive disorder (4) Bipolar disorder: Qualifiers: Active/Remission status: currently active Current bipolar episode type: manic Current episode severity: severe Psychotic features: with psychotic features Qualified Code(s): F31.2 - Bipolar disorder, current episode manic severe with psychotic features Status: Acute Code(s): F31.9 - Bipolar disorder, unspecified Assessment and Plan: -Add Clonidine 0.1 mg daily prn -Add Risperdal 1 mg daily prn -Discontinue Haldol Greater than 50% of the session was spent on counseling and/or coordination of care Reason for contiued inpatient stay Substantial Risk for: harm to self, harm to others, inability to function and rapid decompensation
[2020-12-15] MEDS: HaloperidoL 5 MG TABLET PO (10:19)
[2020-12-15] MEDS: LORazepam 1 MG TABLET PO ×3 (10:19→17:49)
[2020-12-15] MEDS: hydrOXYzine HCL 50 MG TABLET PO ×2 (11:22→17:36)
[2020-12-15] MEDS: Lithium Carbonate 300 MG TABLET 450 MG PO (11:24)
[2020-12-15 12:41] VITALS: BP 110/68; PULSE 89
[2020-12-15] MEDS: cloNIDine HCL 0.1 MG TABLET PO ×3 (12:41→20:01)
[2020-12-15] MEDS: risperiDONE 1 MG TABLET PO ×3 (12:41→20:03)
[2020-12-15 16:54] VITALS: BP 113/63; PULSE 88; RESP 18; TEMP 36.9; O2SAT 96
[2020-12-15 17:49] VITALS: BP 116/69; PULSE 97
[2020-12-15] MEDS: chlorproMAZINE HCl 100 MG TABLET 200 MG PO (19:09)
--- NOTE | 2020-12-15 19:12 | PC.NURSE ---
patient is concerned about his car that was left in [place]. x girlfriend left him a break up note when she dropped belongings off including keys. was given additional prns and did a supervised punching exercise with his mattress when feeling overwhelmed. pt is communicating with staff about how he is feeling and is ''trying not to to call her'' reports he can stay with his dad if needed although did identify that father is experiencing stress due to his s.o dying of cancer. is working on rpp/safety plan per writers request. was allowed to use phone as he had to update his unemployment status.
[2020-12-15 20:01] VITALS: BP 114/68; PULSE 95
[2020-12-15] MEDS: chlorproMAZINE HCl 100 MG TABLET PO (20:03)
[2020-12-15] MEDS: Lithium Carbonate 300 MG TABLET 900 MG PO (20:04)
[2020-12-16 06:10] VITALS: BP 110/58; PULSE 86; RESP 16; TEMP 36.4; O2SAT 97
[2020-12-16] MEDS: busPIRone HCl 5 MG TABLET 15 MG PO ×3 (08:36→20:24)
[2020-12-16] MEDS: Lithium Carbonate 300 MG TABLET 450 MG PO (08:37)
[2020-12-16] MEDS: Nicotine 21 MG PATCH.TD24 TRANSDERMA (08:38)
[2020-12-16] MEDS: OXcarbazepine 300 MG TABLET 600 MG PO ×2 (08:38→20:24)
[2020-12-16 09:23] VITALS: BP 124/67; PULSE 119
[2020-12-16] MEDS: risperiDONE 1 MG TABLET PO ×2 (09:23→20:24)
[2020-12-16] MEDS: cloNIDine HCL 0.1 MG TABLET PO ×3 (09:23→20:23)
[2020-12-16] MEDS: LORazepam 1 MG TABLET PO ×3 (09:24→21:54)
[2020-12-16] MEDS: Divalproex Sodium 250 MG TABLET.DR PO ×2 (11:05→20:24)
--- NOTE | 2020-12-16 12:57 | P.PNPSI_ITS ---
Subjective Subjective Date of Service: 12/16/20 Reason For Visit: Intermittent explosive disorder Subjective Notes: 3 Day Interim History: Pt's partner ended their relationship last evening. Pt requiring several prn medications to manage his mood, anger, grief, feelings. I just don't know how to do depression. I can do nicki much better. Pt submitted TDN on 12/15. Today, focused in our meeting. Filed TDN as he has learned that as of 12/19 his apartment building will be closed as it is not meeting standards with the green building materials distributor. He needs to gather his belongings/car prior to this so he will not lose his possesions. Currently, he plans to have his mother/family escort him and he will stay with the family until he finds another housing resource. He will allow contact with mother, Sobeida Carlson [phone]. He has drafted a support list for himself which includes crisis, [facility], therapist and prescriber agency, friend and PCP which he reviewed with TW. Denies SI, plan or intent. Hopes to return to [facility] as he reports he does need to learn coping skills. Medication Compliance: Yes Side effects from medications: No (denies) Attending Groups: No Review of Systems Review of Systems Yes all other systems are reviewed and are negative (denies) Reports behavioral changes Psychiatric: Reports anxiety, Reports behavioral changes, Reports depression, Reports irritability, Reports mood swings and Reports suicidal ideation (denies at this time) Mental Status Exam Mental Status Exam Patient Appearance: Appropriate Patient Orientation: Person, Place, Time and Situation Level of Consciousness: Awake and Alert Patient Behavior: Appropriate, Talkative and Cooperative Mood Description: Depressed, Fearful and Anxious Affect Description: Flat Patient Cognition Impaired: No Speech Pattern: Spontaneous Speech Memory Description: Episodic Impaired Hallucinations: None Delusions: Not Present Thought Process: Intact Thought Content: positive for [place] and positive for Circumstantial Depressive Symptoms: Increased Anxiety, Diff. Making Decisions and Increased Irritability Judgement: Good Diagnostics Vital Signs (24Hr): Vital Signs - 24 hr 12/15/20 16:54 12/15/20 17:49 12/15/20 20:01 Temperature 98.5 F Pulse Rate 88 97 95 Respiratory Rate 18 Blood Pressure 113/63 116/69 114/68 Pulse Oximetry 96 12/16/20 06:10 12/16/20 09:23 Temperature 97.6 F Pulse Rate 86 119 H Respiratory Rate 16 Blood Pressure 110/58 L 124/67 Pulse Oximetry 97 Body Mass Index 23.3 Labs Results: 12/13/20 19:12 12/13/20 19:12 Medications Medications Current Medications Generic Name Dose Route Start Last Admin Trade Name Freq PRN Reason Stop Dose Admin Acetaminophen 650 mg 12/14/20 11:06 Acetaminophen 325 Mg Tablet PO Q6H PRN Headache/Pain Mild Scale (1-3) Al Hydroxide/Mg Hydroxide 30 ml 12/14/20 11:06 Magnesium Hydrox/Alum Hydrox 30 Ml Oral.Susp PO Q6H PRN Heartburn/Nausea Buspirone HCl 15 mg 12/14/20 15:00 12/16/20 08:36 Buspirone Hcl 5 Mg Tablet PO 15 mg TID EDDA Administration Chlorpromazine HCl 100 mg 12/14/20 21:00 12/15/20 20:03 Chlorpromazine Hcl 100 Mg Tablet PO 100 mg BEDTIME EDDA Administration Clonidine HCl 0.1 mg 12/14/20 21:00 12/15/20 20:01 Clonidine Hcl 0.1 Mg Tablet PO 0.1 mg BEDTIME EDDA Administration Protocol Clonidine HCl 0.1 mg 12/15/20 12:14 12/16/20 09:23 Clonidine Hcl 0.1 Mg Tablet PO 0.1 mg DAILY PRN Administration Anxiety Protocol Divalproex Sodium 250 mg 12/16/20 11:00 12/16/20 11:05 Divalproex Sodium 250 Mg Tablet.Dr PO 250 mg BID EDDA Administration Hydroxyzine HCl 50 mg 12/14/20 22:16 12/15/20 17:36 Hydroxyzine Hcl 50 Mg Tablet PO 50 mg Q6H PRN Administration Anxiety [place] Carbonate 450 mg 12/15/20 10:00 12/16/20 08:37 [place] Carbonate 300 Mg Tablet PO 300 mg DAILY EDDA Administration [place] Carbonate 900 mg 12/15/20 21:00 12/15/20 20:04 [place] Carbonate 300 Mg Tablet PO 900 mg BEDTIME EDDA Administration Lorazepam 1 mg 12/14/20 11:15 12/16/20 09:24 Lorazepam 1 Mg Tablet PO 1 mg Q4H PRN Administration agitation Magnesium Hydroxide 30 ml 12/14/20 11:06 Milk Of Magnesia 30 Ml Oral.Susp PO DAILY PRN Constipation Nicotine 21 mg 12/14/20 11:30 12/16/20 08:38 Nicotine 21 Mg Patch.Td24 TRANSDERMA 21 mg DAILY EDDA Administration Nicotine Polacrilex 4 mg 12/16/20 10:16 12/16/20 10:41 Nicotine Polacrilex 4 Mg Lozenge BUCCAL 4 mg Q1H PRN Administration Nicotine Cravings Oxcarbazepine 600 mg 12/14/20 21:00 12/16/20 08:38 Oxcarbazepine 300 Mg Tablet PO 600 mg BID EDDA Administration Risperidone 1 mg 12/14/20 21:00 12/15/20 20:03 Risperidone 1 Mg Tablet PO 1 mg BEDTIME EDDA Administration Risperidone 1 mg 12/15/20 12:15 12/16/20 09:23 Risperidone 1 Mg Tablet PO 1 mg DAILY PRN Administration agitation Risperidone 0.5 mg 12/16/20 10:53 Risperidone 0.5 Mg Tablet PO Q4H PRN agitation Sumatriptan Succinate 50 mg 12/14/20 10:03 Sumatriptan Succinate 50 Mg Tablet PO DAILY PRN Migraine Headache Trazodone HCl 100 mg 12/14/20 22:14 Trazodone Hcl 100 Mg Tablet PO BEDTIME PRN Insomnia Allergies Allergies Allergy/AdvReac Type Severity Reaction Status Date / Time amoxicillin [AMOXICILLIN] Allergy Intermediate RASH Verified 11/18/20 00:14 bupropion [BUPROPION] Allergy Unknown UNKNOWN Verified 11/18/20 00:14 Assessment & Plan Assessment & Plan (1) Cannabis use disorder, severe, dependence: Status: Acute Code(s): F12.20 - Cannabis dependence, uncomplicated (2) Intermittent explosive disorder: Status: Acute Code(s): F63.81 - Intermittent explosive disorder (3) Bipolar disorder: Qualifiers: Active/Remission status: currently active Current bipolar episode type: manic Current episode severity: severe Psychotic features: with psychotic features Qualified Code(s): F31.2 - Bipolar disorder, current episode manic severe with psychotic features Status: Acute Code(s): F31.9 - Bipolar disorder, unspecified Assessment and Plan: -Depakote 250 mg bid -Risperdal 0.5 mg q 4 hours prn. Greater than 50% of the session was spent on counseling and/or coordination of care Reason for contiued inpatient stay Substantial Risk for: harm to self, inability to function and rapid decompensation
[2020-12-16] MEDS: risperiDONE 0.5 MG TABLET PO ×2 (12:58→21:54)
[2020-12-16] MEDS: hydrOXYzine HCL 50 MG TABLET PO ×2 (15:46→21:55)
[2020-12-16 16:37] VITALS: BP 119/76; PULSE 110; RESP 18; TEMP 36.9; O2SAT 96
[2020-12-16 17:53] VITALS: BP 135/71; PULSE 104
[2020-12-16] MEDS: chlorproMAZINE HCl 100 MG TABLET PO ×2 (17:53→20:24)
[2020-12-16 20:23] VITALS: BP 116/69; PULSE 114
[2020-12-16] MEDS: Lithium Carbonate 300 MG TABLET 900 MG PO (20:24)
[2020-12-16] MEDS: traZODone HCL 100 MG TABLET PO (20:25)
[2020-12-17 06:35] VITALS: BP 100/56; PULSE 87; RESP 18; TEMP 37.2; O2SAT 97
[2020-12-17] MEDS: Nicotine 21 MG PATCH.TD24 TRANSDERMA (08:13)
[2020-12-17] MEDS: busPIRone HCl 5 MG TABLET 15 MG PO (08:13)
[2020-12-17] MEDS: Divalproex Sodium 250 MG TABLET.DR PO (08:13)
[2020-12-17] MEDS: Lithium Carbonate 300 MG TABLET 450 MG PO (08:14)
[2020-12-17] MEDS: OXcarbazepine 300 MG TABLET 600 MG PO (08:14)
[2020-12-17] MEDS: LORazepam 1 MG TABLET PO (09:39)
--- NOTE | 2020-12-17 14:55 | P.DS_ITS ---
DS: Providers Provider Date of Service: 12/17/20 Date of admission: 12/14/20 10:03 Date of discharge: 12/17/20 Primary care physician: Alessandro Elena Admitting clinician: Shelia Germain Attending physician on admission: Ger Wells Attending physician on discharge: Ger Wells Discharging clinician: Shelia Germain DS: Diagnosis Discharge Diagnosis (1) Cannabis use disorder, severe, dependence: Status: Acute (2) Intermittent explosive disorder: Status: Acute (3) Bipolar disorder: Status: Acute Problem details: 30 yo male, participating in partial hospital program, to ER s/p gesture where he took #5 tabs of 100 mg Thorazine to calm himself in situational crisis. Precipitants include girlfriend telling him she had been unfaithful in their relationship and was preparing to leave him to enter a program in [place]. Pt in process of becoming homeless on 12/19/20 as a result. DS: Medications Discharge Medications Home Medications: Previous Rx's Medication Instructions Recorded buspirone 15 mg PO TID 15 Days #90 tab 12/17/20 chlorpromazine 1 tab PO BEDTIME #10 tab 12/17/20 clonidine HCl 0.1 mg PO BEDTIME 30 Days #10 tab 12/17/20 clonidine HCl 0.1 mg PO DAILY PRN #10 tab 12/17/20 divalproex 250 mg PO BID #20 tab 12/17/20 hydroxyzine HCl 50 mg PO Q6H PRN #20 tab 12/17/20 lithium carbonate 450 mg PO DAILY #15 tab 12/17/20 lithium carbonate 900 mg PO BEDTIME 30 Days #20 tab 12/17/20 oxcarbazepine [Trileptal] 600 mg PO BID #20 tab 12/17/20 risperidone 0.5 mg PO Q4H PRN #40 tab 12/17/20 risperidone 1 tab PO BEDTIME #10 tab 12/17/20 sumatriptan succinate 1 tab PO DAILY PRN #10 tab 12/17/20 trazodone 50 mg PO BEDTIME PRN 30 Days #10 12/17/20 tab trazodone 100 mg PO BEDTIME PRN #10 tab 12/17/20 Discharge Plan Discharge Anticipated Discharge Date/Time: 12/17/20 12:00 Patient Disposition: Home, Self-Care Referrals: Talha Layne (psychiatrist) [Other] - 12/23/20 8:40 am (Telehealth appointment) Lawson Herzog (nursing home) [Other] LOLY ELENAYanira [Other] - 12/20/20 9:20 am Soraya Campo (therapist) [Other] (Voicemail left for therapist. Please follow up for appointment) [facility] - [facility]30/20 12:00 pm (Intake will be over the phone. They will call you) Discharge Medications: New clonidine HCl 0.1 mg Tablet 0.1 mg PO DAILY PRN (Reason: Anxiety) Qty: 10 RF: 0 divalproex 250 mg Tablet,Delayed Release (Dr/Ec) 250 mg PO BID Qty: 20 RF: 0 hydroxyzine HCl 50 mg Tablet 50 mg PO Q6H PRN (Reason: Anxiety) Qty: 20 RF: 0 lithium carbonate 300 mg Tablet 450 mg PO DAILY Qty: 15 RF: 0 risperidone 0.5 mg Tablet 0.5 mg PO Q4H PRN (Reason: agitation) Qty: 40 RF: 0 trazodone 100 mg Tablet 100 mg PO BEDTIME PRN (Reason: Insomnia) Qty: 10 RF: 0 Continued buspirone 5 mg Tablet 15 mg PO TID 15 Days Qty: 90 RF: 0 clonidine HCl 0.1 mg Tablet 0.1 mg PO BEDTIME 30 Days Qty: 10 RF: 0 trazodone 50 mg Tablet 50 mg PO BEDTIME PRN (Reason: Insomnia) 30 Days Qty: 10 RF: 0 chlorpromazine 100 mg tablet 1 tab PO BEDTIME Qty: 10 RF: 0 sumatriptan succinate 50 mg tablet 1 tab PO DAILY PRN (Reason: Migraine Headache) Qty: 10 RF: 0 lithium carbonate 450 mg Tablet Extended Release 900 mg PO BEDTIME 30 Days Qty: 20 RF: 0 oxcarbazepine [Trileptal] 600 mg tablet 600 mg PO BID Qty: 20 RF: 0 risperidone 1 mg tablet 1 tab PO BEDTIME Qty: 10 RF: 0 Discontinued nicotine 21 mg/24 hr Patch 24 Hour 21 mg transdermal DAILY 30 Days Qty: 30 RF: 0 Discharge Orders: Discharge Order (Routine); Ordered 12/17/20 Ordered By: Shelia Germain Diet: advance to usual diet Activity on Discharge: As tolerated Stand Alone Forms: Patient Portal Discharge page, Community Support, Substance Abuse Outpt Detox Care Plan Goals: Mood Stability Sobriety Health Concerns: Intermittent Explosive Disorder Bipolar Disorder Substance Use Not taking medicine as directed Plan of Treatment: Take medications as directed Attend all scheduled appointments Call and or return to [facility] as needed. You are leaving after filing a three day notice of intention. We would like you to remain in hospital for a while longer to work on mood stability, however, you have indicated you need to work on moving from your apartment by December 19, 2020. You have contracted for safety and have shared a safety plan and several supports and connections with us. Your mother supports your discharge and will assist you during this time she reports. You have been given a ten day supply of medication. Please attend your medication appointent and continue this work with your out patient provider. Assessment: Three day notice for discharge. Discharge Date/Time: 12/17/20 12:30 Mental Status Exam Mental Status Exam Patient Appearance: Appropriate Patient Orientation: Person, Place, Time and Situation Level of Consciousness: Alert Patient Behavior: Cooperative Mood Description: Constricted Affect Description: Constricted Patient Cognition Impaired: No Ability to Follow Directions: Good Speech Pattern: Spontaneous Speech Memory Description: Intact Hallucinations: None Delusions: Not Present Thought Process: Intact Thought Content: positive for Intact Depressive Symptoms: Thoughts of /Suicide (denies) Judgement: Good Data Data Completed and Pending Completed studies during hospitalization [Text1]: 12/13/20 12/13/20 12/13/20 18:40 18:40 19:12 WBC 12.6 H RBC 5.08 Hgb 14.6 Hct 43.4 MCV 85.4 MCH 28.7 MCHC 33.6 RDW 12.9 Plt Count 266 MPV 9.7 Immature Gran % (Auto) 0.8 H Neut % (Auto) 83.5 H Lymph % (Auto) 11.1 L [place] % (Auto) 2.9 Eos % (Auto) 1.4 Baso % (Auto) 0.3 Lymph # (Auto) 1.4 [place] # (Auto) 0.4 Eos # (Auto) 0.2 Baso # (Auto) 0.0 Abs Immat Gran (auto) 0.10 H Absolute Neuts (auto) 10.5 H Absolute Nucleated RBC 0.000 Nucleated RBC % (auto) 0.0 PT INR APTT Sodium Potassium Chloride Carbon Dioxide Anion Gap BUN Creatinine Estim Creat Clear Calc Estimated GFR Random Glucose Calcium Magnesium Total Bilirubin Direct Bilirubin AST ALT Alkaline Phosphatase Troponin I High Sens Total Protein Albumin Lipase Urine Color YELLOW Urine Appearance CLEAR Urine pH 7.0 Ur Specific [place] 1.010 Urine Protein NEG Urine Glucose (UA) NEG Urine Ketones NEG Urine Blood NEG Urine Nitrite NEG Ur Leukocyte Esterase NEG Salicylates Urine Opiates Screen Not Detected Acetaminophen Ur Barbiturates Screen Not Detected Ur Phencyclidine Scrn Not Detected Ur Amphetamines Screen Not Detected U Benzodiazepines Scrn Not Detected [place] Urine Cocaine Screen Not Detected U Marijuana (THC) Screen POSITIVE H Ethyl Alcohol COVID-19 ([place]) COVID-[facility] 12/13/20 12/13/20 12/13/20 19:12 19:12 19:12 WBC RBC Hgb Hct MCV MCH MCHC RDW Plt Count MPV Immature Gran % (Auto) Neut % (Auto) Lymph % (Auto) [place] % (Auto) Eos % (Auto) Baso % (Auto) Lymph # (Auto) [place] # (Auto) Eos # (Auto) Baso # (Auto) Abs Immat Gran (auto) Absolute Neuts (auto) Absolute Nucleated RBC Nucleated RBC % (auto) PT 12.8 INR 1.1 APTT 32.7 Sodium 139 Potassium 3.5 Chloride 104 Carbon Dioxide 22 Anion Gap 17 BUN 10 Creatinine 0.92 Estim Creat Clear Calc 126.1 Estimated GFR > 60 Random Glucose 108 D Calcium 8.9 D Magnesium 2.0 Total Bilirubin 0.4 Direct Bilirubin 0.2 AST 27 ALT 37 Alkaline Phosphatase 41 Troponin I High Sens Total Protein 6.7 Albumin 4.4 Lipase 24 Urine Color Urine Appearance Urine pH Ur Specific [place] Urine Protein Urine Glucose (UA) Urine Ketones Urine Blood Urine Nitrite Ur Leukocyte Esterase Salicylates Urine Opiates Screen Acetaminophen Ur Barbiturates Screen Ur Phencyclidine Scrn Ur Amphetamines Screen U Benzodiazepines Scrn [place] Urine Cocaine Screen U Marijuana (THC) Screen Ethyl Alcohol 36 COVID-19 ([place]) COVID-19 [employer] 12/13/20 12/13/20 12/13/20 19:12 19:12 19:13 WBC RBC Hgb Hct MCV MCH MCHC RDW Plt Count MPV Immature Gran % (Auto) Neut % (Auto) Lymph % (Auto) [place] % (Auto) Eos % (Auto) Baso % (Auto) Lymph # (Auto) [place] # (Auto) Eos # (Auto) Baso # (Auto) Abs Immat Gran (auto) Absolute Neuts (auto) Absolute Nucleated RBC Nucleated RBC % (auto) PT INR APTT Sodium Potassium Chloride Carbon Dioxide Anion Gap BUN Creatinine Estim Creat Clear Calc Estimated GFR Random Glucose Calcium Magnesium Total Bilirubin Direct Bilirubin AST ALT Alkaline Phosphatase Troponin I High Sens < 3.5 Total Protein Albumin Lipase Urine Color Urine Appearance Urine pH Ur Specific [place] Urine Protein Urine Glucose (UA) Urine Ketones Urine Blood Urine Nitrite Ur Leukocyte Esterase Salicylates < 5.0 L Urine Opiates Screen Acetaminophen < 1 Ur Barbiturates Screen Ur Phencyclidine Scrn Ur Amphetamines Screen U Benzodiazepines Scrn [place] 0.79 Urine Cocaine Screen U Marijuana (THC) Screen Ethyl Alcohol COVID-19 ([place] COVID-[facility] 12/13/20 19:20 WBC RBC Hgb Hct MCV MCH MCHC RDW Plt Count MPV Immature Gran % (Auto) Neut % (Auto) Lymph % (Auto) [place] % (Auto) Eos % (Auto) Baso % (Auto) Lymph # (Auto) [place] # (Auto) Eos # (Auto) Baso # (Auto) Abs Immat Gran (auto) Absolute Neuts (auto) Absolute Nucleated RBC Nucleated RBC % (auto) PT INR APTT Sodium Potassium Chloride Carbon Dioxide Anion Gap BUN Creatinine Estim Creat Clear Calc Estimated GFR Random Glucose Calcium Magnesium Total Bilirubin Direct Bilirubin AST ALT Alkaline Phosphatase Troponin I High Sens Total Protein Albumin Lipase Urine Color Urine Appearance Urine pH Ur Specific [place] Urine Protein Urine Glucose (UA) Urine Ketones Urine Blood Urine Nitrite Ur Leukocyte Esterase Salicylates Urine Opiates Screen Acetaminophen Ur Barbiturates Screen Ur Phencyclidine Scrn Ur Amphetamines Screen U Benzodiazepines Scrn [place] Urine Cocaine Screen U Marijuana (THC) Screen Ethyl Alcohol COVID-19 ([place] Negative COVID-19 [employer] See Note DS: Summary Hospital Course Hospital Course: Pt was admitted on a conditional voluntary and signed a three day notice of intent. During his admission he experienced episodes of intense agitation. Clonidine was titrated, Depakote was initiated, Risperdal prn was added at pt's request and Trazodone was titrated. Pt reported he needed to move his belongings prior to December 19, 2020 or lose them due to girlfriend's move. Pt's mother was supportive of pt's discharge, stating she would assist him and encourage him to return to the hospital as needed for treatment if symptoms intensified. Pt reflected upon his gesture, difficulties with partial hospital before admission and admission as needing to manage a social crisis with the status change in his relationship. He will explore addictions IOP with [facility] and has a scheduled appointment on 12/30/20. He was able to contract for safety and has family support should he experience a recurrence of symptoms similiar to those which precipitated this admission. He will meet with his out pt prescriber next week. Time spent discussing smoking cessation with patient: 3 to 10 minutes Status at Discharge Cognitive/behavioral status at discharge: alert, oriented, denies SI, HI, non- psychotic. affect and mood are constricted. Functional status at discharge: independent ambulation Overall status at discharge: patient is progressing back to baseline Time Spent with Patient Time attestation: Total time spent providing and/or coordinating discharge services: 30 Time spent: Less than 30 minutes
== END 2020-12-17 12:30 | disposition home or self-care (01) | DRG 753 ==
LOC: HO.ED 12-14 08:20 → HO.PM5 12-14 10:08
PROVIDERS: Nurse Practitioner Family; Admitting Provider Psychiatry & Neurology Psychiatry; Emergency Provider Emergency Medicine; Visit Provider Clinical Nurse Specialist Psychiatric/Mental Health, Adult
DX: F31.9 Bipolar disorder, unspecified (principal); R45.851 Suicidal ideations; F43.10 Post-traumatic stress disorder, unspecified; F63.81 Intermittent explosive disorder; F12.20 Cannabis dependence, uncomplicated; F17.210 Nicotine dependence, cigarettes, uncomplicated; T43.3X2A Poisoning by phenothiazine antipsychotics and neuroleptics, intentional self-harm, initial encounter; Z20.822 Contact with and (suspected) exposure to COVID-19; Z79.899 Other long term (current) drug therapy
CPT/HCPCS: 36415; 80048; 80076; 80143; 80178; 80179; 80307; 80320; 81003; 83690; 83735; 84484; 85025; 85610; 85730; 87635; 93005; 99285

== ENCOUNTER 2020-12-27 09:28 | Emergency (ER) | payer MEDICAID, SELFPAY ==
[2020-12-27 10:08] VITALS: BP 119/80; PULSE 93; RESP 18; TEMP 36.9; O2SAT 96; BMI 24.3
[2020-12-27 10:18] VITALS: BP 119/80; PULSE 93; RESP 18; TEMP 36.9; O2SAT 96
--- NOTE | 2020-12-27 10:18 | ECG_ITS ---
Test Reason : MED CLEARANCE Blood Pressure : / mmHG Vent. Rate : 079 BPM Atrial Rate : 079 BPM P-R Int : 160 ms QRS Dur : 102 ms QT Int : 354 ms P-R-T Axes : 055 077 061 degrees QTc Int : 405 ms Sinus rhythm with marked sinus arrhythmia Otherwise normal ECG When compared with ECG of 13-DEC-2020 18:49, No significant change was found Referred By: Osiris Butt Electronically Signed By:HAILEE WASHINGTON
[2020-12-27] MEDS: LORazepam 1 MG TABLET PO (10:41)
[2020-12-27] MEDS: Nicotine 21 MG PATCH.TD24 TRANSDERMA (10:42)
--- NOTE | 2020-12-27 10:47 | ED.PSYCH ---
HPI - Psych General Chief Complaint: Psychiatric Symptoms Stated Complaint: CRISIS Time Seen by Provider: 12/27/20 10:15 Source: patient Mode of arrival: ambulatory Limitations: no limitations History of Present Illness HPI Narrative: 30 y/o male with history of bipolar disorder, intermittent explosive disorder, history of depression with prior suicide attempts with Thorazine overdoses who presents to the ER today reporting increased depression in the setting of medication changes. He was recently taken off of Thorazine and is starting Depakote and being tapered off of Trileptal. He admits to using klonopin recreationally for anxiety and taking extra risperdal last night for sleep and numbing. Dening SI or HI at this time. MD complaint: feels depressed Onset (ago): week(s) Duration: constant History of same: Yes Relieving factors: medication and therapy Exacerbating factors: none Context: new medication(s) and significant life stressor Associated psychiatric symptoms: depression Associated symptoms: denies other symptoms Treatments prior to arrival: none Related Data Previous Rx's Medication Instructions Recorded buspirone 15 mg PO TID 15 Days #90 tab 12/17/20 chlorpromazine 1 tab PO BEDTIME #10 tab 12/17/20 clonidine HCl 0.1 mg PO BEDTIME 30 Days #10 tab 12/17/20 clonidine HCl 0.1 mg PO DAILY PRN #10 tab 12/17/20 divalproex 250 mg PO BID #20 tab 12/17/20 hydroxyzine HCl 50 mg PO Q6H PRN #20 tab 12/17/20 lithium carbonate 450 mg PO DAILY #15 tab 12/17/20 lithium carbonate 900 mg PO BEDTIME 30 Days #20 tab 12/17/20 oxcarbazepine [Trileptal] 600 mg PO BID #20 tab 12/17/20 risperidone 0.5 mg PO Q4H PRN #40 tab 12/17/20 risperidone 1 tab PO BEDTIME #10 tab 12/17/20 sumatriptan succinate 1 tab PO DAILY PRN #10 tab 12/17/20 trazodone 50 mg PO BEDTIME PRN 30 Days #10 12/17/20 tab trazodone 100 mg PO BEDTIME PRN #10 tab 12/17/20 Allergies Allergy/AdvReac Type Severity Reaction Status Date / Time amoxicillin [AMOXICILLIN] Allergy Intermediate RASH Verified 11/18/20 00:14 bupropion [BUPROPION] Allergy Unknown UNKNOWN Verified 11/18/20 00:14 Review of Systems Review of Systems: Constitutional: No Fever, No Chills Cardiovascular: No Chest Pain, No SOB Respiratory: No Cough, No Sputum Gastrointestinal: No Nausea, No Vomiting, No Diarrhea, No abdominal Pain Genitourinary: No Dysuria, No Urinary Frequency, No Hematuria Musculoskeletal: No joint pain, No Myalgias Skin: No Skin Lesions, No rash Neuro: No Weakness, No Numbness, No Dizziness, + Headache Psych: + Anxiety/Panic, + Depression Heme/Lymph: No Bruising, No Lymphadenopathy PMFSH Past Medical History Attestation statement: The following information was validated with the patient. Medical History Bipolar disorder Intermittent explosive disorder Perforated nasal septum Social History Social History Household Members: Significant Other Housing: Apartment Alcohol intake: former Smoking Status: Current every day smoker Tobacco Type: Cigarette Packs Per Day: 1 Cigarettes Per Day: 20.0 Years Smoked: 14 Smoked in Last 30 Days: Yes Second Hand Smoke Exposure: Yes Use of substances other than those prescribed or required for medical reasons: Yes Substance Use Type: Marijuana Advance Directives: No Advance Directives Information Provided: No service: No Sexual orientation: Decline to Answer Physical Exam Vital Signs: Vital Signs: Last Vital Signs Temp 98.4 F 12/27/20 10:18 Pulse 93 12/27/20 10:18 Resp 18 12/27/20 10:18 BP 119/80 12/27/20 10:18 Pulse Ox 96 12/27/20 10:18 Body Mass Index 24.3 Appearance: Alert. Oriented X3. No acute distress. Eyes: Pupils equal, round and reactive to light. ENT: Pharynx normal. Neck: Normal inspection. Neck supple. CVS: Normal heart rate and rhythm. Pulses normal. Respiratory: No respiratory distress. Breath sounds normal. Abdomen: Soft and nontender. +BS x4 Skin: Skin warm and dry. Normal skin color. Normal skin turgor. No rashes. Extremities: No lower extremity edema. Neuro/Psych: Oriented X 3. No motor deficit. No sensory deficit. Speaks in full complete sentences, steady gait, good insight to his illness, future oriented, no SI/HI, AH/VH Course Course Course Narrative: 30 y/o male with history of bipolar presenting with worsening depression in the setting of medication changes over the last 1 month. He denies SI but has attempts in the past. He is worried he may get to that point so he is seeking help. He is worried about medications interacting with one another and wants to check his depakote and lithium levels. He reports taking a couple extra risperdal last night to sleep and numb the feeling of depression. Adamantly denies attempt to harm himself. Will get lab workup and have Psych see him. Recently admitted to . Reevaluation(s) Reevaluation #1: Lab workup is unremarkbale, depakote slightly low but this level can be normal for mood stabilization, it is not for seizures. He was made aware there are no beds today and patient is requesting to go home. Will have CARE team see him 1st. Reevaluation #2: Magalie from CARE team saw the patient, spoke with his Psychiatrist and cleared him for safe discharge home. Plan is in place to meet with his Psychiatrist on Wednesday to discuss medications. To keep taking as directed without changes for now. Stable for d/c. MDM - Psych Lab Data Result diagrams: 12/27/20 10:50 12/27/20 10:50 Labs: Lab Results 12/27/20 12/27/20 12/27/20 Range/Units 10:29 10:29 10:31 WBC (4.8-10.8) X10*3/uL RBC (4.60-5.80) X10*6/uL Hgb (14.0-18.0) g/dl Hct (42-52) % MCV (80-98) fL MCH (27.0-33.0) pg MCHC (31.0-36.0) g/dl RDW (11.0-16.0) % Plt Count (160-400) X10*3/uL MPV (9.4-12.4) fL Immature Gran % (Auto) (0.0-0.4) % Neut % (Auto) (45-73) % Lymph % (Auto) (20-40) % [place] % (Auto) (2-11) % Eos % (Auto) (0-4) % Baso % (Auto) (0-2) % Lymph # (Auto) (1.2-4.9) X10*3/uL [place] # (Auto) (0.1-1.2) X10*3/uL Eos # (Auto) (0.0-0.4) X10*3/uL Baso # (Auto) (0.0-0.2) X10*3/uL Abs Immat Gran (auto) (0.00-0.03) X10*3/uL Absolute Neuts (auto) (2.0-8.3) X10*3/uL Absolute Nucleated RBC (0.0-0.012) X10*3/uL Nucleated RBC % (auto) (0.0-0.2) /100WBC Sodium (135-145) mmol/L Potassium (3.3-5.1) mmol/L Chloride (96-108) mmol/L Carbon Dioxide (22-29) mmol/L Anion Gap (12-20) BUN (9-16) mg/dL Creatinine (0.5-1.4) mg/dL Estim Creat Clear Calc Estimated GFR Random Glucose (60-115) mg/dL Calcium (8.4-10.2) mg/dL Magnesium (1.6-2.6) mg/dL Total Bilirubin (0.0-1.0) mg/dL Direct Bilirubin (0.0-0.5) mg/dL AST (5-37) U/L ALT (0-40) U/L Alkaline Phosphatase (39-117) U/L Total Protein (6.5-8.0) g/dL Albumin (3.5-5.0) g/dL Urine Color YELLOW Urine Appearance CLEAR Urine pH 8.5 H (5.0-8.0) Ur Specific [place] 1.015 (1.005-1.025) Urine Protein NEG (NEG-TRACE) MG/DL Urine Glucose (UA) NEG (NEG) MG/DL Urine Ketones NEG (NEG) MG/DL Urine Blood NEG (NEG) Urine Nitrite NEG (NEG) Ur Leukocyte Esterase NEG (NEG) Urine Opiates Screen Not Detected (Not Detect) Ur Barbiturates Screen Not Detected (Not Detect) Valproic Acid (50.0-100.0) mcg/mL Ur Phencyclidine Scrn Not Detected (Not Detect) Ur Amphetamines Screen Not Detected (Not Detect) U Benzodiazepines Scrn Not Detected (Not Detect) Agnew (0.60-1.20) mmol/L Urine Cocaine Screen Not Detected (Not Detect) U Marijuana (THC) Screen POSITIVE H (Not Detect) Ethyl Alcohol mg/dL COVID-19 ([place]) Negative (Negative) COVID-19 Clin Com See Note 12/27/20 12/27/20 12/27/20 Range/Units 10:50 10:50 10:50 WBC 11.8 H (4.8-10.8) X10*3/uL RBC 5.50 (4.60-5.80) X10*6/uL Hgb 15.6 (14.0-18.0) g/dl Hct 48.4 (42-52) % MCV 88.0 (80-98) fL MCH 28.4 (27.0-33.0) pg MCHC 32.2 (31.0-36.0) g/dl RDW 13.2 (11.0-16.0) % Plt Count 289 (160-400) X10*3/uL MPV 9.7 (9.4-12.4) fL Immature Gran % (Auto) 0.7 H (0.0-0.4) % Neut % (Auto) 78.0 H (45-73) % Lymph % (Auto) 13.9 L (20-40) % [place] % (Auto) 4.8 (2-11) % Eos % (Auto) 2.3 (0-4) % Baso % (Auto) 0.3 (0-2) % Lymph # (Auto) 1.7 (1.2-4.9) X10*3/uL [place] # (Auto) 0.6 (0.1-1.2) X10*3/uL Eos # (Auto) 0.3 (0.0-0.4) X10*3/uL Baso # (Auto) 0.0 (0.0-0.2) X10*3/uL Abs Immat Gran (auto) 0.08 H (0.00-0.03) X10*3/uL Absolute Neuts (auto) 9.2 H (2.0-8.3) X10*3/uL Absolute Nucleated RBC 0.000 (0.0-0.012) X10*3/uL Nucleated RBC % (auto) 0.0 (0.0-0.2) /100WBC Sodium 139 (135-145) mmol/L Potassium 4.4 D (3.3-5.1) mmol/L Chloride 104 (96-108) mmol/L Carbon Dioxide 24 (22-29) mmol/L Anion Gap 15 (12-20) BUN 12 (9-16) mg/dL Creatinine 0.87 (0.5-1.4) mg/dL Estim Creat Clear Calc 145.6 Estimated GFR > 60 Random Glucose 122 H (60-115) mg/dL Calcium 9.5 D (8.4-10.2) mg/dL Magnesium 2.2 (1.6-2.6) mg/dL Total Bilirubin 0.2 (0.0-1.0) mg/dL Direct Bilirubin < 0.2 (0.0-0.5) mg/dL AST 19 (5-37) U/L ALT 31 (0-40) U/L Alkaline Phosphatase 45 (39-117) U/L Total Protein 7.2 (6.5-8.0) g/dL Albumin 4.7 (3.5-5.0) g/dL Urine Color Urine Appearance Urine pH (5.0-8.0) Ur Specific [place] (1.005-1.025) Urine Protein (NEG-TRACE) MG/DL Urine Glucose (UA) (NEG) MG/DL Urine Ketones (NEG) MG/DL Urine Blood (NEG) Urine Nitrite (NEG) Ur Leukocyte Esterase (NEG) Urine Opiates Screen (Not Detect) Ur Barbiturates Screen (Not Detect) Valproic Acid (50.0-100.0) mcg/mL Ur Phencyclidine Scrn (Not Detect) Ur Amphetamines Screen (Not Detect) U Benzodiazepines Scrn (Not Detect) Ag[place] (0.60-1.20) mmol/L Urine Cocaine Screen (Not Detect) U Marijuana (THC) Screen (Not Detect) Ethyl Alcohol < 10 mg/dL COVID-19 ([place]) (Negative) COVID-19 Clin Com 12/27/20 12/27/20 Range/Units 10:50 10:50 WBC (4.8-10.8) X10*3/uL RBC (4.60-5.80) X10*6/uL Hgb (14.0-18.0) g/dl Hct (42-52) % MCV (80-98) fL MCH (27.0-33.0) pg MCHC (31.0-36.0) g/dl RDW (11.0-16.0) % Plt Count (160-400) X10*3/uL MPV (9.4-12.4) fL Immature Gran % (Auto) (0.0-0.4) % Neut % (Auto) (45-73) % Lymph % (Auto) (20-40) % [place] % (Auto) (2-11) % Eos % (Auto) (0-4) % Baso % (Auto) (0-2) % Lymph # (Auto) (1.2-4.9) X10*3/uL [place] # (Auto) (0.1-1.2) X10*3/uL Eos # (Auto) (0.0-0.4) X10*3/uL Baso # (Auto) (0.0-0.2) X10*3/uL Abs Immat Gran (auto) (0.00-0.03) X10*3/uL Absolute Neuts (auto) (2.0-8.3) X10*3/uL Absolute Nucleated RBC (0.0-0.012) X10*3/uL Nucleated RBC % (auto) (0.0-0.2) /100WBC Sodium (135-145) mmol/L Potassium (3.3-5.1) mmol/L Chloride (96-108) mmol/L Carbon Dioxide (22-29) mmol/L Anion Gap (12-20) BUN (9-16) mg/dL Creatinine (0.5-1.4) mg/dL Estim Creat Clear Calc Estimated GFR Random Glucose (60-115) mg/dL Calcium (8.4-10.2) mg/dL Magnesium (1.6-2.6) mg/dL Total Bilirubin (0.0-1.0) mg/dL Direct Bilirubin (0.0-0.5) mg/dL AST (5-37) U/L ALT (0-40) U/L Alkaline Phosphatase (39-117) U/L Total Protein (6.5-8.0) g/dL Albumin (3.5-5.0) g/dL Urine Color Urine Appearance Urine pH (5.0-8.0) Ur Specific [place] (1.005-1.025) Urine Protein (NEG-TRACE) MG/DL Urine Glucose (UA) (NEG) MG/DL Urine Ketones (NEG) MG/DL Urine Blood (NEG) Urine Nitrite (NEG) Ur Leukocyte Esterase (NEG) Urine Opiates Screen (Not Detect) Ur Barbiturates Screen (Not Detect) Valproic Acid 49.4 L (50.0-100.0) mcg/mL Ur Phencyclidine Scrn (Not Detect) Ur Amphetamines Screen (Not Detect) U Benzodiazepines Scrn (Not Detect) [place] 0.94 (0.60-1.20) mmol/L Urine Cocaine Screen (Not Detect) U Marijuana (THC) Screen (Not Detect) Ethyl Alcohol mg/dL COVID-19 ([place]) (Negative) COVID-19 Clin Com Discharge Plan Discharge Clinical Impression: Bipolar disorder Qualifiers: Active/Remission status: currently active Current bipolar episode type: depressed Current episode severity: unspecified Qualified Code(s): F31.30 - Bipolar disorder, current episode depressed, mild or moderate severity, unspecified Patient Disposition: Home, Self-Care Instructions: Bipolar Disorder (ED), Depression (ED) Additional Instructions: Your lab workup today was unremarkable. Continue to take all of your medications as directed. Follow up with your Psychiatrist on Wednesday. If you feel suicidal call 911 or come back to the ER for further evaluation. Prescriptions: No Action clonidine HCl 0.1 mg Tablet 0.1 mg PO DAILY PRN (Reason: Anxiety) Qty: 10 RF: 0 divalproex 250 mg Tablet,Delayed Release (Dr/Ec) 250 mg PO BID Qty: 20 RF: 0 hydroxyzine HCl 50 mg Tablet 50 mg PO Q6H PRN (Reason: Anxiety) Qty: 20 RF: 0 lithium carbonate 300 mg Tablet 450 mg PO DAILY Qty: 15 RF: 0 risperidone 0.5 mg Tablet 0.5 mg PO Q4H PRN (Reason: agitation) Qty: 40 RF: 0 trazodone 100 mg Tablet 100 mg PO BEDTIME PRN (Reason: Insomnia) Qty: 10 RF: 0 buspirone 5 mg Tablet 15 mg PO TID 15 Days Qty: 90 RF: 0 clonidine HCl 0.1 mg Tablet 0.1 mg PO BEDTIME 30 Days Qty: 10 RF: 0 trazodone 50 mg Tablet 50 mg PO BEDTIME PRN (Reason: Insomnia) 30 Days Qty: 10 RF: 0 chlorpromazine 100 mg tablet 1 tab PO BEDTIME Qty: 10 RF: 0 sumatriptan succinate 50 mg tablet 1 tab PO DAILY PRN (Reason: Migraine Headache) Qty: 10 RF: 0 lithium carbonate 450 mg Tablet Extended Release 900 mg PO BEDTIME 30 Days Qty: 20 RF: 0 oxcarbazepine [Trileptal] 600 mg tablet 600 mg PO BID Qty: 20 RF: 0 risperidone 1 mg tablet 1 tab PO BEDTIME Qty: 10 RF: 0
[2020-12-27 10:52] LABS: Glucose Urine UA NEG (NEG); Leukocyte Esterase Urine NEG (NEG); Nitrite Urine NEG (NEG); PH 8.5 (5.0-8.0); Specific Gravity - Urine 1.015 (1.005-1.025); Urine Blood NEG (NEG); Urine Ketones NEG (NEG); Urine Protein NEG (NEG-TRACE)
[2020-12-27 10:53] LABS: Appearance Urine CLEAR; Color Urine YELLOW
[2020-12-27 10:59] LABS: MANUAL DIFF FLAG NO
[2020-12-27 11:04] LABS: Basophils Percent Auto 0.3 % (0-2); Eosinophils Absolute Auto 0.3 X10*3/uL (0.0-0.4); Eosinophils Percent Auto 2.3 % (0-4); Hematocrit 48.4 % (42-52); Hemoglobin 15.6 g/dl (14.0-18.0); Imm Gran Abs Auto 0.08 X10*3/uL (0.00-0.03); Imm Gran Pct Auto 0.7 % (0.0-0.4); Lymphocytes Absolute Auto 1.7 X10*3/uL (1.2-4.9); Lymphocytes Percent Auto 13.9 % (20-40); Mean Corpuscular HGB Conc 32.2 g/dl (31.0-36.0); Mean Corpuscular Hemoglobin 28.4 pg (27.0-33.0); Mean Platelet Volume 9.7 fL (9.4-12.4); Monocytes Absolute Auto 0.6 X10*3/uL (0.1-1.2); Monocytes Percent Auto 4.8 % (2-11); Neutrophils Absolute Auto 9.2 X10*3/uL (2.0-8.3); Platelet Count 289 X10*3/uL (160-400); Red Cell Distribution Width 13.2 % (11.0-16.0); White Blood Count 11.8 X10*3/uL (4.8-10.8)
[2020-12-27 11:05] LABS: COVID-19 Test Negative (Negative)
[2020-12-27 11:20] LABS: Lithium 0.94 mmol/L (0.60-1.20)
[2020-12-27 11:24] LABS: Ethanol < 10 mg/dL
[2020-12-27 11:27] LABS: Amphetamine Screen Urine Not Detected (Not Detect); Barbiturates, Urine Not Detected (Not Detect); Benzodiazepines Screen Urine Not Detected (Not Detect); Cannabinoid Screen Urine POSITIVE (Not Detect); Cocaine Screen Urine Not Detected (Not Detect); Opiate Screen Urine Not Detected (Not Detect); Phencyclidine Screen Urine Not Detected (Not Detect)
[2020-12-27 11:29] LABS: Alanine Aminotransferase 31 U/L (0-40); Albumin Level 4.7 g/dL (3.5-5.0); Alkaline Phosphatase 45 U/L (39-117); Anion Gap 15 (12-20); Aspartate Amino Transferase 19 U/L (5-37); Bilirubin Direct < 0.2 mg/dL (0.0-0.5); Bilirubin Total 0.2 mg/dL (0.0-1.0); Blood Urea Nitrogen 12 mg/dL (9-16); Calcium 9.5 mg/dL (8.4-10.2); Carbon Dioxide 24 mmol/L (22-29); Chloride 104 mmol/L (96-108); Creatinine Clr Calc Pharmacy 145.6; Estimated Glomerular Filt Rate > 60; Glucose Random 122 mg/dL (60-115); Magnesium 2.2 mg/dL (1.6-2.6); Potassium 4.4 mmol/L (3.3-5.1); Sodium 139 mmol/L (135-145); Total Protein 7.2 g/dL (6.5-8.0)
[2020-12-27 11:32] LABS: Valproate 49.4 mcg/mL (50.0-100.0)
--- NOTE | 2020-12-27 12:28 | MHC.CARE ---
This telegraphic typewriter operator met with pt who denied SI, self harm, AH/VH. Reported that he was afraid that his depression could worsen and wanted to be ahead of it. Reported that he acted on SI in the past by taking pills but reported that he felt safe at this time. Pt felt that his SI could get worse due to changes with his medications and worsening depression and wanted to check in for some advice. Pt reported that he is used to having manic episodes and reported that it felt odd for him to have a depressive episode and that he was not used to this. pt was given psychoeducation around bipolar and also set up safety planning for ct to leave. Pt set up a psychiatrist apt through [facility] Wednesday and also has a therapist he sees weekly. Pt was given crisis numbers and text hotlines. Pt felt comfortable leaving and felt that he had a lot of life transitions currently happening such as recent homelessness and his girlfriend going to a sober home. Pt is going to live with his parents for a little bit until he figures out his next steps.
== END 2020-12-27 12:56 | disposition home or self-care (01) ==
PROVIDERS: Physician Assistant; Emergency Provider Emergency Medicine
DX: F31.30 Bipolar disorder, current episode depressed, mild or moderate severity, unspecified (principal); F17.210 Nicotine dependence, cigarettes, uncomplicated; Z20.822 Contact with and (suspected) exposure to COVID-19; Z79.899 Other long term (current) drug therapy; Z71.6 Tobacco abuse counseling
CPT/HCPCS: 36415; 80048; 80076; 80164; 80178; 80307; 80320; 81003; 83735; 85025; 87635; 93005; 99284

== ENCOUNTER 2021-01-12 20:42 | Emergency (ER) | payer MEDICAID, SELFPAY ==
[2021-01-12 20:56] VITALS: PULSE 88; RESP 18; TEMP 36.7; O2SAT 128; BMI 23.0
[2021-01-12 21:35] LABS: COVID-19 Test Negative (Negative)
[2021-01-12 21:47] LABS: Amphetamine Screen Urine Not Detected (Not Detect); Barbiturates, Urine Not Detected (Not Detect); Benzodiazepines Screen Urine Not Detected (Not Detect); Cannabinoid Screen Urine POSITIVE (Not Detect); Cocaine Screen Urine Not Detected (Not Detect); Opiate Screen Urine Not Detected (Not Detect); Phencyclidine Screen Urine Not Detected (Not Detect)
--- NOTE | 2021-01-12 23:39 | ED_ITS ---
HPI - Psych General Chief Complaint: Psychiatric Symptoms Stated Complaint: Crisis Time Seen by Provider: 01/12/21 23:39 Source: patient Mode of arrival: ambulatory History of Present Illness HPI Narrative: 30-year-old male with extensive past medical history of depression who comes in with worsening symptoms and endorses that he was taking extra pills from his prescribed medications but they were not helping. He adamantly denies any suicidal or homicidal ideation and denies any audiovisual hallucinations. When asked about the triggering event for his worsening depression he states that his girlfriend is not around. Related Data Home Medications Medication Instructions Recorded Confirmed lithium carbonate 1 cap PO BID 01/12/21 01/12/21 lithium carbonate 1 cap PO BID 01/12/21 01/12/21 oxcarbazepine 300 mg PO BID 01/12/21 01/12/21 risperidone [Risperdal] 1 tab PO BEDTIME 01/12/21 01/12/21 Previous Rx's Medication Instructions Recorded buspirone 15 mg PO TID 15 Days #90 tab 12/17/20 chlorpromazine 1 tab PO BEDTIME #10 tab 12/17/20 clonidine HCl 0.1 mg PO BEDTIME 30 Days #10 tab 12/17/20 clonidine HCl 0.1 mg PO DAILY PRN #10 tab 12/17/20 divalproex 250 mg PO BID #20 tab 12/17/20 hydroxyzine HCl 50 mg PO Q6H PRN #20 tab 12/17/20 risperidone 0.5 mg PO Q4H PRN #40 tab 12/17/20 sumatriptan succinate 1 tab PO DAILY PRN #10 tab 12/17/20 Allergies Allergy/AdvReac Type Severity Reaction Status Date / Time amoxicillin [AMOXICILLIN] Allergy Intermediate RASH Verified 11/18/20 00:14 bupropion [BUPROPION] Allergy Unknown UNKNOWN Verified 11/18/20 00:14 Review of Systems Review of Systems: Pertinent positives and negatives as stated in HPI 10 point review of systems is otherwise negative. PMFSH Past Medical History Source: nursing notes reviewed Medical History Bipolar disorder Hallucinogen use with hallucinogen-induced disorder Intermittent explosive disorder Perforated nasal septum Stimulant use disorder Social History Social History Household Members: Significant Other Housing: Apartment Alcohol intake: former Smoking Status: Current every day smoker Tobacco Type: Cigarette Packs Per Day: 1 Cigarettes Per Day: 20.0 Years Smoked: 14 Second Hand Smoke Exposure: Yes Substance Use Type: Marijuana Advance Directives: No Advance Directives Information Provided: Yes service: No Sexual orientation: Decline to Answer Physical Exam Vital Signs: Vital Signs: Last Vital Signs Temp 98.0 F 01/12/21 20:56 Pulse 88 01/12/21 20:56 Resp 18 01/12/21 20:56 Pulse Ox 128 H 01/12/21 20:56 Body Mass Index 23.0 VITAL SIGNS: Reviewed. GENERAL: Well developed, well nourished, in no acute distress. HEAD: Normocephalic/atraumatic EYES: PERRLA, EOMI EARS: Ext canals without abnormality NOSE: Nares patent bilateral OROPHARYNX: no oral lesions noted, posterior pharynx clear NECK: Supple, no adenopathy LUNGS: Normal breath sounds. SpO2<98> CARDIOVASCULAR: Regular rate and rhythm without noted murmurs ABDOMEN: Soft, non-tender, non-distended with bowel sounds NEUROLOGIC: Alert and oriented x 4. PSYCH: Depressed affect but logical thought process Course Course Course Narrative: 30-year-old male with history and clinical presentation consistent with acute on chronic depression without suicidal ideation. Patient is otherwise medically cleared for further evaluation by the crisis team. Reevaluation(s) Reevaluation #1: Patient placed in physician observation because the patient n eeded more time for BHN evaluation. At the time observation was started the patient's vital signs were stable, patient is alert and oriented, neuro: Nonfocal, CV RRR, lungs clear. Time: 23:50 MDM - Psych Lab Data Labs: Lab Results 01/12/21 01/12/21 Range/Units 21:07 21:07 Urine Opiates Screen Not Detected (Not Detect) Ur Barbiturates Screen Not Detected (Not Detect) Ur Phencyclidine Scrn Not Detected (Not Detect) Ur Amphetamines Screen Not Detected (Not Detect) U Benzodiazepines Scrn Not Detected (Not Detect) Urine Cocaine Screen Not Detected (Not Detect) U Marijuana (THC) Screen POSITIVE H (Not Detect) COVID-19 ([place]) Negative (Negative) COVID-19 Clin Com See Note Discharge Plan Discharge Prescriptions: No Action lithium carbonate 150 mg capsule 1 cap PO BID RF: 0 lithium carbonate 300 mg capsule 1 cap PO BID RF: 0 risperidone [Risperdal] 2 mg tablet 1 tab PO BEDTIME RF: 0 oxcarbazepine 300 mg Tablet 300 mg PO BID RF: 0 clonidine HCl 0.1 mg Tablet 0.1 mg PO DAILY PRN (Reason: Anxiety) Qty: 10 RF: 0 divalproex 250 mg Tablet,Delayed Release (Dr/Ec) 250 mg PO BID Qty: 20 RF: 0 hydroxyzine HCl 50 mg Tablet 50 mg PO Q6H PRN (Reason: Anxiety) Qty: 20 RF: 0 risperidone 0.5 mg Tablet 0.5 mg PO Q4H PRN (Reason: agitation) Qty: 40 RF: 0 buspirone 5 mg Tablet 15 mg PO TID 15 Days Qty: 90 RF: 0 clonidine HCl 0.1 mg Tablet 0.1 mg PO BEDTIME 30 Days Qty: 10 RF: 0 chlorpromazine 100 mg tablet 1 tab PO BEDTIME Qty: 10 RF: 0 sumatriptan succinate 50 mg tablet 1 tab PO DAILY PRN (Reason: Migraine Headache) Qty: 10 RF: 0
--- NOTE | 2021-01-13 05:46 | PC.NURSE ---
MONICA called/spoke with Anabelle supervisor facepiece line, confirmed receipt of referral that was sent earlier, Patient will be seen in the morning.
[2021-01-13 06:00] VITALS: BP 115/60; PULSE 98; RESP 16; TEMP 36.8; O2SAT 96
--- NOTE | 2021-01-13 07:16 | PC.NURSE ---
Report received from PAULINO Rodriguez. Pt awake, alert, verifying meds. No other concerns reported.
[2021-01-13] MEDS: busPIRone HCl 5 MG TABLET 15 MG PO (07:41)
[2021-01-13] MEDS: Lithium Carbonate 300 MG TABLET 150 MG PO (07:42)
[2021-01-13] MEDS: Divalproex Sodium 250 MG TABLET.DR PO (07:42)
[2021-01-13] MEDS: Lithium Carbonate 300 MG CAPSULE PO (07:42)
[2021-01-13] MEDS: OXcarbazepine 300 MG TABLET PO (07:44)
[2021-01-13 09:13] VITALS: RESP 16
[2021-01-13] MEDS: hydrOXYzine HCL 50 MG TABLET PO (09:41)
[2021-01-13] MEDS: Nicotine 14 MG PATCH.TD24 TRANSDERMA (09:45)
--- NOTE | 2021-01-13 09:48 | PC.NURSE ---
Pt reporting increased anxiety- medicated as requested. CARE team consult ethan;led to CARE team. Pt denies SI.
--- NOTE | 2021-01-13 10:43 | PC.NURSE ---
Pt resting, resp unlabored- seen by CARE team, no further concerns reported.
--- NOTE | 2021-01-13 11:17 | MHC.CARE ---
0945: Met with pt at request of pt's nurse Ingrid Acosta. N was called and advised that CARE would be taking the case. Pt stated that he had an argument with his girlfriend and shortly after went for a drive to cool down. Pt6 stated that he returned home and took Some extra medication to get to sleep . Pt very clearly denied any HI or SI and stated that the purpose of taking the extra medication was so that he could Get to sleep and stay asleep . Pt explained when asked what stay asleep meant, that he wanted to sleep without the interruption of frequent awakening. Pt stated that he realized that taking extra medication was not a good idea so he called the CARE team stating that when I'm in these moods I need to talk to someone . Pt stated that he was depressed that his girlfriend was no longer at home with him (She is in a program), but they are still together as a couple. Pt stated he understands she is working on herself right now and recognizes that is what she needs to get well. Pt has a support system in place. He is presently living with his Father, has a therapist he sees weekly and has been consistently (by his own report) for about 2 years. Pt has a psychiatrist, having recently been assigned a new one. Pt's psychiatrist has recently changed his medications. Both the prescriber and the therapist are through [facility]. Because he has no thoughts of harm to self or others and has a support system in place that he is utilizing, it is the opinion of this food writer that pt does not need in patient level of care. Pt did express a desire to be in the Partial Hospitalization Program here so he may continue to work on his mental health. [facility] was contacted and they recommend that pt complete an IOP for substance use prior to involvement with [facility]. A list of IOP programs was provided to pt with an explanation. Pt agreed to explore this opportunity. Met with pt's nurse PAULINO Acosta and his provider Radha Blanco were advised and are in agreement that pt will be discharged. Pt drove here so he will not require assistance with transportation.
--- NOTE | 2021-01-13 12:13 | PC.NURSE ---
Pt resting, resp unlabored. Pt seen by BHN awaiting dispo.
== END 2021-01-13 13:45 | disposition home or self-care (01) ==
PROVIDERS: Emergency Provider Student in an Organized Health Care Education/Training Program; PCP Nurse Practitioner Family
DX: F33.1 Major depressive disorder, recurrent, moderate (principal); R00.0 Tachycardia, unspecified; F12.90 Cannabis use, unspecified, uncomplicated; F17.210 Nicotine dependence, cigarettes, uncomplicated; Z71.6 Tobacco abuse counseling; Z20.822 Contact with and (suspected) exposure to COVID-19; Z79.899 Other long term (current) drug therapy
CPT/HCPCS: 36415; 80307; 87635; 99284

== ENCOUNTER 2021-02-26 20:57 | Emergency (ER) | payer MEDICAID, SELFPAY ==
--- NOTE | 2021-02-26 | ECG_ITS ---
Test Reason : CHEST PAIN Blood Pressure : / mmHG Vent. Rate : 100 BPM Atrial Rate : 100 BPM P-R Int : 154 ms QRS Dur : 098 ms QT Int : 346 ms P-R-T Axes : 068 078 066 degrees QTc Int : 446 ms Normal sinus rhythm Normal ECG When compared with ECG of 27-DEC-2020 11:50, No significant change was found Referred By: Selwyn Gordillo Electronically Signed By:MELLISA CASTLE MD
[2021-02-26 22:11] VITALS: BP 134/83; PULSE 88; RESP 18; TEMP 36.7; O2SAT 97; BMI 25.1
[2021-02-26 22:30] LABS: MANUAL DIFF FLAG NO
[2021-02-26 22:31] LABS: Basophils Percent Auto 0.2 % (0-2); Eosinophils Absolute Auto 0.1 X10*3/uL (0.0-0.4); Eosinophils Percent Auto 0.7 % (0-4); Hematocrit 46.6 % (42-52); Hemoglobin 16.1 g/dl (14.0-18.0); Imm Gran Abs Auto 0.07 X10*3/uL (0.00-0.03); Imm Gran Pct Auto 0.4 % (0.0-0.4); Lymphocytes Absolute Auto 2.6 X10*3/uL (1.2-4.9); Lymphocytes Percent Auto 14.4 % (20-40); Mean Corpuscular HGB Conc 34.5 g/dl (31.0-36.0); Mean Corpuscular Volume 83.8 fL (80-98); Mean Platelet Volume 9.5 fL (9.4-12.4); Monocytes Absolute Auto 0.9 X10*3/uL (0.1-1.2); Monocytes Percent Auto 4.9 % (2-11); Neutrophils Absolute Auto 14.1 X10*3/uL (2.0-8.3); Neutrophils Percent Auto 79.4 % (45-73); Platelet Count 293 X10*3/uL (160-400); Red Blood Count 5.56 X10*6/uL (4.60-5.80); Red Cell Distribution Width 12.1 % (11.0-16.0); White Blood Count 17.8 X10*3/uL (4.8-10.8)
[2021-02-26 22:57] LABS: Anion Gap 15 (12-20); Blood Urea Nitrogen 18 mg/dL (9-16); Calcium 9.9 mg/dL (8.4-10.2); Carbon Dioxide 22 mmol/L (22-29); Chloride 106 mmol/L (96-108); Creatinine Clr Calc Pharmacy 120.9; Estimated Glomerular Filt Rate > 60; Glucose Random 75 mg/dL (60-115); Potassium 3.9 mmol/L (3.3-5.1); Sodium 139 mmol/L (135-145)
[2021-02-26 23:04] LABS: Troponin-I High Sensitivity 6.5 ng/L (<3.5-35.0)
== END 2021-02-27 00:13 | disposition left against medical advice (07) ==
PROVIDERS: Emergency Provider Emergency Medicine; PCP Nurse Practitioner Family
DX: R07.9 Chest pain, unspecified (principal)
CPT/HCPCS: 36415; 80048; 80178; 84484; 85025; 93005; 99282; 99283

== ENCOUNTER 2021-03-28 16:46 | Outpatient (REF) | payer MEDICAID, SELFPAY ==
[2021-03-28 18:33] LABS: Amphetamine Screen Urine Not Detected (Not Detect); Barbiturates, Urine Not Detected (Not Detect); Benzodiazepines Screen Urine Not Detected (Not Detect); Cannabinoid Screen Urine POSITIVE (Not Detect); Cocaine Screen Urine Not Detected (Not Detect); Opiate Screen Urine Not Detected (Not Detect); Phencyclidine Screen Urine Not Detected (Not Detect)
== END 2021-03-28 16:47 | disposition home or self-care (01) ==
LOC: HO.LAB 16:46
PROVIDERS: Visit Provider Social Worker
DX: F19.20 Other psychoactive substance dependence, uncomplicated (principal); Z79.899 Other long term (current) drug therapy
CPT/HCPCS: 80307

== ENCOUNTER 2021-06-10 09:45 | Outpatient (REF) | payer MEDICAID, SELFPAY ==
[2021-06-10 10:18] LABS: MANUAL DIFF FLAG NO
[2021-06-10 10:27] LABS: Basophils Percent Auto 0.3 % (0-2); Eosinophils Absolute Auto 0.2 X10*3/uL (0.0-0.4); Eosinophils Percent Auto 2.8 % (0-4); Hemoglobin 15.2 g/dl (14.0-18.0); Imm Gran Abs Auto 0.05 X10*3/uL (0.00-0.03); Imm Gran Pct Auto 0.6 % (0.0-0.4); Lymphocytes Percent Auto 25.1 % (20-40); Mean Corpuscular HGB Conc 33.8 g/dl (31.0-36.0); Mean Corpuscular Hemoglobin 28.4 pg (27.0-33.0); Mean Corpuscular Volume 84.1 fL (80-98); Mean Platelet Volume 9.9 fL (9.4-12.4); Monocytes Absolute Auto 0.5 X10*3/uL (0.1-1.2); Monocytes Percent Auto 5.6 % (2-11); Neutrophils Absolute Auto 5.3 X10*3/uL (2.0-8.3); Neutrophils Percent Auto 65.6 % (45-73); Platelet Count 295 X10*3/uL (160-400); Red Blood Count 5.35 X10*6/uL (4.60-5.80)
[2021-06-10 10:46] LABS: Lithium 0.61 mmol/L (0.60-1.20)
[2021-06-10 10:50] LABS: Estimated Average Glucose 91 mg/dL; Hemoglobin A1c % 4.8 %
[2021-06-10 10:52] LABS: Anion Gap 13 (12-20); Blood Urea Nitrogen 11 mg/dL (9-16); Calcium 10.2 mg/dL (8.4-10.2); Carbon Dioxide 27 mmol/L (22-29); Chloride 105 mmol/L (96-108); Cholesterol 172 mg/dL; Estimated Glomerular Filt Rate > 60; Glucose Fasting 89 mg/dL (60-99); HDL Cholesterol 39 mg/dL; LDL Cholesterol Calculated 100 mg/dl; Potassium 4.5 mmol/L (3.3-5.1); Sodium 140 mmol/L (135-145); Triglycerides 168 mg/dL
[2021-06-10 11:15] LABS: Free T4 (Free Thyroxine) 0.99 ng/dL (0.71-1.85); Thyroid Stimulating Hormone 2.61 uIU/mL (0.32-4.0)
== END 2021-06-10 09:46 | disposition home or self-care (01) ==
LOC: HO.LAB 09:45
PROVIDERS: PCP Nurse Practitioner Family; Visit Provider Clinical Nurse Specialist Psychiatric/Mental Health, Child & Adolescent
DX: Z51.81 Encounter for therapeutic drug level monitoring (principal); Z79.899 Other long term (current) drug therapy
CPT/HCPCS: 36415; 80048; 80061; 80178; 83036; 84439; 84443; 85025

== ENCOUNTER 2021-08-01 10:45 | Emergency (ER) | payer MEDICAID, SELFPAY ==
--- NOTE | 2021-08-01 | ECG_ITS ---
Test Reason : CHEST PAIN Blood Pressure : / mmHG Vent. Rate : 082 BPM Atrial Rate : 082 BPM P-R Int : 150 ms QRS Dur : 098 ms QT Int : 348 ms P-R-T Axes : 042 057 051 degrees QTc Int : 406 ms Normal sinus rhythm with sinus arrhythmia Normal ECG When compared with ECG of 26-FEB-2021 21:12, No significant change was found Heart rate has decreased Referred By: Generic ED Physician Electronically Signed By:KAYLIN CONNORS MD
--- NOTE | ~2021-08-01 | XR_ITS ---
EXAMINATION: XR CHEST CLINICAL INFORMATION: Chest pain COMPARISON: October 12, 2019 and December 24, 2019 TECHNIQUE: AP portable view of the chest was obtained. FINDINGS: There is mild elevation of the left hemidiaphragm. There is no evidence of acute parenchymal disease, pneumothorax, or pleural effusion. Heart normal size. No evidence of pulmonary edema. XR/XR chest 1V IMPRESSION: No acute disease.
--- NOTE | 2021-08-01 10:52 | ED_ITS ---
HPI - Chest Pain General Chief Complaint: Chest Pain Stated Complaint: chest pain Time Seen by Provider: 08/01/21 10:52 Source: patient Mode of arrival: ambulatory Limitations: no limitations History of Present Illness HPI narrative: chset pain over the past few days with pain in the left side of neck. Patient is bipolar on lithium complaint: chest pain Onset (ago): day(s) Timing of current episode: constant Onset: during rest Pain location: left chest Pain radiation: neck Severity: moderate Quality: sharp Related Data Home Medications Medication Instructions Recorded Confirmed lithium carbonate 150 mg capsule 1 cap PO BID 01/12/21 01/12/21 lithium carbonate 300 mg capsule 1 cap PO BID 01/12/21 01/12/21 oxcarbazepine 300 mg tablet 300 mg PO BID 01/12/21 01/12/21 risperidone 2 mg tablet (Risperdal) 1 tab PO BEDTIME 01/12/21 01/12/21 Previous Rx's Medication Instructions Recorded buspirone 5 mg tablet 15 mg PO TID 15 Days #90 tab 12/17/20 chlorpromazine 100 mg tablet 1 tab PO BEDTIME #10 tab 12/17/20 clonidine HCl 0.1 mg tablet 0.1 mg PO BEDTIME 30 Days #10 tab 12/17/20 clonidine HCl 0.1 mg tablet 0.1 mg PO DAILY PRN #10 tab 12/17/20 divalproex 250 mg tablet,delayed 250 mg PO BID #20 tab 12/17/20 release hydroxyzine HCl 50 mg tablet 50 mg PO Q6H PRN #20 tab 12/17/20 risperidone 0.5 mg tablet 0.5 mg PO Q4H PRN #40 tab 12/17/20 sumatriptan succinate 50 mg tablet 1 tab PO DAILY PRN #10 tab 12/17/20 naproxen 500 mg tablet (Naprosyn) 500 mg PO BID #20 tab 08/01/21 Allergies Allergy/AdvReac Type Severity Reaction Status Date / Time amoxicillin [AMOXICILLIN] Allergy Intermediate RASH Verified 11/18/20 00:14 bupropion [BUPROPION] Allergy Unknown UNKNOWN Verified 11/18/20 00:14 Review of Systems Neurologic: Denies Sensory deficit (Neuro) PMFSH Past Medical History Medical History Bipolar disorder Hallucinogen use with hallucinogen-induced disorder Intermittent explosive disorder Perforated nasal septum Stimulant use disorder Social History Social History Household Members: Significant Other Household Members Other:: girlfriend Housing: Apartment Do you presently have visiting nurse or other home services: No Alcohol intake: former Patient Tobacco Use Status: Current everyday Tobacco user Cigarette Packs Per Day: 1 Cigarettes Per Day: 20.0 Years Smoked: 14 Second Hand Smoke Exposure: Yes Use of substances other than those prescribed or required for medical reasons: No Substance Use Type: Marijuana Advance Directives: No service: No Sexual orientation: Decline to Answer Physical Exam Vital Signs: Vital Signs: Last Vital Signs Temp 99.0 F 08/01/21 10:54 Pulse 86 08/01/21 10:54 Resp 18 08/01/21 10:54 BP 125/80 08/01/21 10:54 Pulse Ox 97 08/01/21 10:54 Body Mass Index 27.0 Const: General: healthy appearing Nutritional Appearance: average body habitus Orientation/consciousness: oriented to person and patient oriented x3 Limitations: no limitations HENMT: Head: Yes normal to inspection Ears: external ears normal General nose exam: Normal external nose present Mouth: Normal oral and palatal mucosa present and oropharynx normal Throat: Yes posterior oropharynx normal Eyes: General: appearance normal, both eyes and all related structures Neck: Other: Left sternocleidomastoid tender to touch Neck: Yes normal visual inspection Chest: Other: left upper pectoralis very tender to touch Chest palpation & inspection: normal inspection of the chest Resp: Auscultation: clear to auscultation bilaterally Cardio: Jugular venous distension: no JVD Rate: regular rate Rhythm: regular rhythm Heart sounds: S1 normal heart sound present and S2 normal heart sound present GI: Inspection: Yes normal to inspection Palpation (GI): Soft to palpation, nontender and No hepatosplenomegaly present Auscultation: normal bowel sounds : General: Yes no CVA tenderness Back/Spine/Pelvis: Back: no CVA tenderness Skin: General skin exam: no rashes or lesions noted Neuro: General: oriented to person and patient oriented x3 Cranial nerves: Yes CN's II-XII intact bilaterally Motor exam (neuro): 5/5 motor strength present throughout Sensory Exam: No Sensory deficit (Neuro) Extrem: General: Yes normal to inspection Psych: Appearance: grossly normal Course Reevaluation(s) Reevaluation #1: patient with very reproducible chest pain will start nsaids, no evidence of cardiac ischemia or infectious process Time: 11:56 MDM - Chest Pain Lab Data Result diagrams: 08/01/21 11:05 08/01/21 11:05 Labs: Lab Results 08/01/21 08/01/21 08/01/21 Range/Units 11:05 11:05 11:05 WBC 11.6 H (4.8-10.8) X10*3/uL RBC 5.30 (4.60-5.80) X10*6/uL Hgb 14.9 (14.0-18.0) g/dl Hct 44.9 (42.0-52.0) % MCV 84.7 (80.0-98.0) fL MCH 28.1 (27.0-33.0) pg MCHC 33.2 (31.0-36.0) g/dl RDW 12.1 (11.0-16.0) % Plt Count 258 (160-400) X10*3/uL MPV 9.6 (9.4-12.4) fL Immature Gran % (Auto) 0.3 (0.0-0.4) % Neut % (Auto) 72.8 (45-73) % Lymph % (Auto) 19.9 L (20-40) % [place] % (Auto) 3.9 (2-11) % Eos % (Auto) 2.8 (0-4) % Baso % (Auto) 0.3 (0-2) % Lymph # (Auto) 2.3 (1.2-4.9) X10*3/uL [place] # (Auto) 0.5 (0.1-1.2) X10*3/uL Eos # (Auto) 0.3 (0.0-0.4) X10*3/uL Baso # (Auto) 0.0 (0.0-0.2) X10*3/uL Abs Immat Gran (auto) 0.04 H (0.00-0.03) X10*3/uL Absolute Neuts (auto) 8.5 H (2.0-8.3) x10*3/uL Absolute Nucleated RBC 0.000 (0.0-0.012) X10*3/uL Nucleated RBC % (auto) 0.0 (0.0-0.2) /100WBC Sodium 136 (135-145) mmol/L Potassium 4.2 (3.3-5.1) mmol/L Chloride 105 (96-108) mmol/L Carbon Dioxide 22 (22-29) mmol/L Anion Gap 13 (12-20) BUN 12 (9-16) mg/dL Creatinine 0.90 (0.5-1.4) mg/dL Estim Creat Clear Calc 128.9 Estimated GFR > 60 Random Glucose 90 (60-115) mg/dL Calcium 9.6 (8.4-10.2) mg/dL Troponin I High Sens < 3.5 (<3.5-35.0) ng/L Imaging Data Chest x-ray: Radiologist's impression: There is mild elevation of the left hemidiaph ragm. There is no evidence of acute parenchymal disease, pneumothorax, or pleural effusion. Heart normal size. No evidence of pulmonary edema. XR/XR chest 1V IMPRESSION: No acute disease. ? Discharge Plan Discharge Clinical Impression: Musculoskeletal chest pain Chest pain Qualifiers: Chest pain type: unspecified Qualified Code(s): R07.9 - Chest pain, unspecified Patient Disposition: Home, Self-Care Instructions: Noncardiac Chest Pain (ED), Chest Wall Pain (ED) Prescriptions: New naproxen [Naprosyn] 500 mg tablet 500 mg PO BID Qty: 20 RF: 0 No Action lithium carbonate 150 mg capsule 1 cap PO BID RF: 0 lithium carbonate 300 mg capsule 1 cap PO BID RF: 0 risperidone [Risperdal] 2 mg tablet 1 tab PO BEDTIME RF: 0 oxcarbazepine 300 mg Tablet 300 mg PO BID RF: 0 clonidine HCl 0.1 mg Tablet 0.1 mg PO DAILY PRN (Reason: Anxiety) Qty: 10 RF: 0 divalproex 250 mg Tablet,Delayed Release (Dr/Ec) 250 mg PO BID Qty: 20 RF: 0 hydroxyzine HCl 50 mg Tablet 50 mg PO Q6H PRN (Reason: Anxiety) Qty: 20 RF: 0 risperidone 0.5 mg Tablet 0.5 mg PO Q4H PRN (Reason: agitation) Qty: 40 RF: 0 buspirone 5 mg Tablet 15 mg PO TID 15 Days Qty: 90 RF: 0 clonidine HCl 0.1 mg Tablet 0.1 mg PO BEDTIME 30 Days Qty: 10 RF: 0 chlorpromazine 100 mg tablet 1 tab PO BEDTIME Qty: 10 RF: 0 sumatriptan succinate 50 mg tablet 1 tab PO DAILY PRN (Reason: Migraine Headache) Qty: 10 RF: 0 Referrals: Tony Rey FNP [Primary Care Provider] - 1 week
[2021-08-01 10:54] VITALS: BP 125/80; PULSE 86; RESP 18; TEMP 37.2; O2SAT 97; BMI 27.0
[2021-08-01 11:08] LABS: MANUAL DIFF FLAG NO
[2021-08-01 11:10] LABS: Basophils Percent Auto 0.3 % (0-2); Eosinophils Absolute Auto 0.3 X10*3/uL (0.0-0.4); Eosinophils Percent Auto 2.8 % (0-4); Hematocrit 44.9 % (42.0-52.0); Hemoglobin 14.9 g/dl (14.0-18.0); Imm Gran Abs Auto 0.04 X10*3/uL (0.00-0.03); Imm Gran Pct Auto 0.3 % (0.0-0.4); Lymphocytes Absolute Auto 2.3 X10*3/uL (1.2-4.9); Lymphocytes Percent Auto 19.9 % (20-40); Mean Corpuscular HGB Conc 33.2 g/dl (31.0-36.0); Mean Corpuscular Hemoglobin 28.1 pg (27.0-33.0); Mean Corpuscular Volume 84.7 fL (80.0-98.0); Mean Platelet Volume 9.6 fL (9.4-12.4); Monocytes Absolute Auto 0.5 X10*3/uL (0.1-1.2); Monocytes Percent Auto 3.9 % (2-11); Neutrophils Absolute Auto 8.5 x10*3/uL (2.0-8.3); Neutrophils Percent Auto 72.8 % (45-73); Platelet Count 258 X10*3/uL (160-400); Red Cell Distribution Width 12.1 % (11.0-16.0); White Blood Count 11.6 X10*3/uL (4.8-10.8)
[2021-08-01] MEDS: Ketorolac Tromethamine 15 MG/ML VIAL 30 MG IVPUSH (11:13)
[2021-08-01 11:25] LABS: Anion Gap 13 (12-20); Blood Urea Nitrogen 12 mg/dL (9-16); Calcium 9.6 mg/dL (8.4-10.2); Carbon Dioxide 22 mmol/L (22-29); Chloride 105 mmol/L (96-108); Creatinine Clr Calc Pharmacy 128.9; Estimated Glomerular Filt Rate > 60; Glucose Random 90 mg/dL (60-115); Potassium 4.2 mmol/L (3.3-5.1); Sodium 136 mmol/L (135-145)
[2021-08-01 11:30] LABS: Troponin-I High Sensitivity < 3.5 ng/L (<3.5-35.0)
[2021-08-01 12:03] VITALS: BP 110/79; PULSE 89; RESP 14; O2SAT 99
== END 2021-08-01 12:07 | disposition home or self-care (01) ==
PROVIDERS: Emergency Provider Emergency Medicine; PCP Nurse Practitioner Family
DX: R07.89 Other chest pain (principal)
CPT/HCPCS: 36415; 71045; 80048; 84484; 85025; 93005; 96372; 99284; 99285; J1885

== ENCOUNTER 2022-04-13 17:23 | Emergency (ER) | payer MEDICAID, SELFPAY ==
[2022-04-13 17:36] VITALS: BP 140/90; BP 146/91; PULSE 117; PULSE 132; TEMP 36.6; O2SAT 95; O2SAT 96; BMI 23.7
[2022-04-13 18:29] LABS: Appearance Urine CLEAR; Color Urine YELLOW; Glucose Urine UA NEG (NEG); Leukocyte Esterase Urine NEG (NEG); Nitrite Urine NEG (NEG); Urine Blood NEG (NEG); Urine Ketones NEG (NEG); Urine Protein NEG (NEG-TRACE)
--- NOTE | 2022-04-13 18:36 | ED_ITS ---
HPI - Psych General Chief Complaint: Psychiatric Symptoms Stated Complaint: PSYCH/CRISIS PER EMS Time Seen by Provider: 04/13/22 17:54 Source: patient and EMS Mode of arrival: EMS Limitations: no limitations History of Present Illness HPI Narrative: Patient comes to the emergency room after having an argument with his parents. Patient states that he came home from work, patient is staying at his parents house. When he got home, he realized that his parents had pocked all of his stuff and told him that he needed to leave. He became upset, started yelling screaming, no physical altercation. Patient practiced of got into his car. PD showed up, asked to the patient to step out of the car which he did, patient was very angry at this time, PD asked the patient if he was suicidal, patient said yes . Immediately, patient said oh shit , slipped his mouth. Patient states that he said yes out of pure anger. Patient is not suicidal or homicidal. Since patient initially said yes, PD called EMS, patient came in voluntarily, patient realized immediately that he made a mistake saying yes although he was out of anger. Patient has been compliant PD, EMS and in the pod Related Data Home Medications Medication Instructions Recorded Confirmed lithium carbonate 150 mg capsule 1 cap PO BID 01/12/21 01/12/21 lithium carbonate 300 mg capsule 1 cap PO BID 01/12/21 01/12/21 oxcarbazepine 300 mg tablet 300 mg PO BID 01/12/21 01/12/21 risperidone 2 mg tablet (Risperdal) 1 tab PO BEDTIME 01/12/21 01/12/21 Previous Rx's Medication Instructions Recorded buspirone 5 mg tablet 15 mg PO TID 15 days #90 tabs 12/17/20 chlorpromazine 100 mg tablet 1 tab PO BEDTIME #10 tabs 12/17/20 clonidine HCl 0.1 mg tablet 0.1 mg PO BEDTIME 30 days #10 tabs 12/17/20 clonidine HCl 0.1 mg tablet 0.1 mg PO DAILY PRN Anxiety #10 12/17/20 tabs divalproex 250 mg tablet,delayed 250 mg PO BID #20 tabs 12/17/20 release hydroxyzine HCl 50 mg tablet 50 mg PO Q6H PRN Anxiety #20 tabs 12/17/20 risperidone 0.5 mg tablet 0.5 mg PO Q4H PRN agitation #40 12/17/20 tabs sumatriptan succinate 50 mg tablet 1 tab PO DAILY PRN Migraine 12/17/20 Headache #10 tabs naproxen 500 mg tablet (Naprosyn) 500 mg PO BID #20 tabs 08/01/21 Allergies Allergy/AdvReac Type Severity Reaction Status Date / Time amoxicillin [AMOXICILLIN] Allergy Intermediate RASH Verified 11/18/20 00:14 bupropion [BUPROPION] Allergy Unknown UNKNOWN Verified 11/18/20 00:14 Review of Systems Review of Systems: Constitutional : No Weight loss, No Fever, No Chills, No Night Sweats, No Fatigue, No Malaise ENT/Mouth : No Hearing loss, No Ear Pain, No Nasal Congestion, No Sinus Pain, No Hoarseness, No sore throat, No Rhinorrhea, No Swallowing Difficulty Eyes: No Eye Pain, No Swelling, No Redness, No Foreign Body, No Discharge, No Vision Changes Cardiovascular : No Chest Pain, No SOB, No Dyspnea on Exertion, No Orthopnea, No Edema, No Palpitations Respiratory : No Cough, No Sputum, No Wheezing, No Smoke Exposure, No Dyspnea Gastrointestinal : No Nausea, No Vomiting, No Diarrhea, No Constipation, No abdominal Pain, No Hematochezia, No Melena Genitourinary : no irregular bleeding, No Dysuria, No Urinary Frequency, No Hematuria, No Urinary Incontinence, No Urgency, No Flank Pain, No Urinary Flow Changes, No Hesitancy Musculoskeletal : No joint pain, No Myalgias, No Joint Swelling Skin : No Skin Lesions, No rash Neuro : No Weakness, No Numbness, No Paresthesias, No Loss of Consciousness, No Dizziness, No Headache Psych : No Anxiety/Panic, No Depression, No SI/HI/AH/VH, No Social Issues, Heme/Lymph: No Bruising, No Bleeding,No Lymphadenopathy Endocrine : No Polyuria, No Polydipsia, No Temperature Intolerance [facility] Past Medical History Medical History Bipolar disorder Hallucinogen use with hallucinogen-induced disorder Intermittent explosive disorder Perforated nasal septum Stimulant use disorder Social History Social History Household Members: Significant Other Household Members Other:: girlfriend Housing: Apartment Do you presently have visiting nurse or other home services: No Alcohol intake: former Patient Tobacco Use Status: Current everyday Tobacco user Cigarette Packs Per Day: 1 Cigarettes Per Day: 20.0 Years Smoked: 14 Second Hand Smoke Exposure: Yes Substance Use Type: Marijuana service: No Sexual orientation: Decline to Answer Physical Exam Vital Signs: Vital Signs: Last Vital Signs Temp 97.9 F 04/13/22 17:36 Pulse 117 H 04/13/22 17:36 BP 146/91 H 04/13/22 17:36 Pulse Ox 96 04/13/22 17:36 O2 Del Method 04/13/22 17:36 BMI result Body Mass Index 23.7 Const: Other: Appearance: Alert. Oriented X3. No acute distress. Eyes: Pupils equal, round and reactive to light. ENT: Pharynx normal. Neck: Normal inspection. Neck supple. No lymph nodes noted. No crepitus CVS: Normal heart rate and rhythm. Pulses normal. Normal S1 and S2 Respiratory: No respiratory distress. Breath sounds normal. No Wheezing. No rales Abdomen: Soft and nontender. No rigidity. No distention. Skin: Skin warm and dry. Normal skin color. Normal skin turgor. Extremities: No lower extremity edema. No Lacerations. No Rash Neuro: Oriented X 3. No motor deficit. No sensory deficit. Moving all extremities. No slurred speech. CN 2 through 12 grossly intact Psych: calm, cooperative, normal affect Course Course Course Narrative: Patient is calm, cooperative. Patient does realize that it was a bad idea to have said to the field marketing coordinator that he is suicidal. As mentioned above, patient states this was a anger response. Patient is not suicidal or homicidal. Patient has history of bipolar disorder, states that he is compliant with his medications. Patient states that he does not hold greatest against his parents, would never hurt them, states he will no destroyed her house. Patient states he wants to slate picker his car, he will go to a hotel, and then fear at work he is going to stay. Patient concerned about missing work tomorrow. Patient is calm, cooperative, coherent, patient is not suicidal or homicidal, I do not see any reason to Section 12 the patient. MDM - Psych Lab Data Labs: Lab Results 04/13/22 Range/Units 18:21 Urine Color YELLOW Urine Appearance CLEAR Urine pH 6.0 (5.0-8.0) Ur Specific [place] 1.020 (1.005-1.025) Urine Protein NEG (NEG-TRACE) MG/DL Urine Glucose (UA) NEG (NEG) MG/DL Urine Ketones NEG (NEG) MG/DL Urine Blood NEG (NEG) Urine Nitrite NEG (NEG) Ur Leukocyte Esterase NEG (NEG) Discharge Plan Discharge Clinical Impression: Acute anxiety Patient Disposition: Home, Self-Care Instructions: Anxiety (ED) Additional Instructions: Please follow-up with your primary care physician tomorrow. If you have any worsening or new symptoms, please return to the emergency room or call 911 Prescriptions: No Action lithium carbonate 150 mg capsule 1 cap PO BID lithium carbonate 300 mg capsule 1 cap PO BID risperidone [Risperdal] 2 mg tablet 1 tab PO BEDTIME oxcarbazepine 300 mg Tablet 300 mg PO BID clonidine HCl 0.1 mg Tablet 0.1 mg PO DAILY PRN (Reason: Anxiety) Qty: 10 0RF Protocol: Hold for SBP< HOLD for SBP < : 90 divalproex 250 mg Tablet,Delayed Release (Dr/Ec) 250 mg PO BID Qty: 20 0RF hydroxyzine HCl 50 mg Tablet 50 mg PO Q6H PRN (Reason: Anxiety) Qty: 20 0RF risperidone 0.5 mg Tablet 0.5 mg PO Q4H PRN (Reason: agitation) Qty: 40 0RF buspirone 5 mg Tablet 15 mg PO TID 15 Days Qty: 90 0RF clonidine HCl 0.1 mg Tablet 0.1 mg PO BEDTIME 30 Days Qty: 10 0RF Protocol: Hold for SBP< HOLD for SBP < : 90 chlorpromazine 100 mg tablet 1 tab PO BEDTIME Qty: 10 0RF sumatriptan succinate 50 mg tablet 1 tab PO DAILY PRN (Reason: Migraine Headache) Qty: 10 0RF naproxen [Naprosyn] 500 mg tablet 500 mg PO BID Qty: 20 0RF
[2022-04-13 18:48] LABS: COVID-19 Test Negative (Negative); IDNOW Serial# 16C4AD1C
== END 2022-04-13 19:05 | disposition home or self-care (01) ==
PROVIDERS: Emergency Provider Emergency Medicine
DX: F41.1 Generalized anxiety disorder (principal); F43.0 Acute stress reaction; F17.210 Nicotine dependence, cigarettes, uncomplicated; Z71.6 Tobacco abuse counseling; Z20.822 Contact with and (suspected) exposure to COVID-19; Z79.899 Other long term (current) drug therapy
CPT/HCPCS: 81003; 87635; 99283; 99284

== ENCOUNTER 2022-04-30 09:03 | Outpatient (REF) | payer OTHER, SELFPAY ==
[2022-04-30 10:37] LABS: Baso%MD 0.4 %; Eos%MD 2.8 %; Hematocrit 47.6 % (42.0-52.0); Hemoglobin 16.1 g/dl (14.0-18.0); IG%MD 0.3 %; Mean Corpuscular HGB Conc 33.8 g/dl (31.0-36.0); Mean Corpuscular Hemoglobin 28.4 pg (27.0-33.0); Mean Corpuscular Volume 84.1 fL (80.0-98.0); Mean Platelet Volume 9.9 fL (9.4-12.4); Mono%MD 5.6 %; Neut%MD 66.9 %; Platelet Count 281 X10*3/uL (160-400); Red Blood Count 5.66 X10*6/uL (4.60-5.80); Red Cell Distribution Width 12.4 % (11.0-16.0); White Blood Count 7.8 X10*3/uL (4.8-10.8)
[2022-04-30 11:12] LABS: Anion Gap 14 (12-20); Blood Urea Nitrogen 18 mg/dL (9-16); Calcium 9.5 mg/dL (8.4-10.2); Carbon Dioxide 25 mmol/L (22-29); Chloride 105 mmol/L (96-108); Estimated Glomerular Filt Rate > 60; Glucose Random 89 mg/dL (60-115); Potassium 4.3 mmol/L (3.3-5.1); Sodium 140 mmol/L (135-145)
[2022-04-30 11:37] LABS: Free T4 (Free Thyroxine) 1.03 ng/dL (0.71-1.85); Thyroid Stimulating Hormone 1.99 uIU/mL (0.32-4.0)
[2022-04-30 11:53] LABS: Band Neutrophils Percent 0 % (3-5); Eosinophils Absolute Manual 0.3 X10*3/uL (0.0-0.4); Eosinophils Percent Manual 4 % (0-4); Lymphocytes Absolute Manual 1.6 X10*3/uL (1.2-4.9); Lymphocytes Percent Manual 21 % (20-40); Monocytes Absolute Manual 0.6 X10*3/uL (0.1-1.2); Monocytes Percent Manual 8 % (2-11); Neutrophils Absolute Manual 5.2 X10*3/uL (2.0-8.3); Neutrophils Percent Manual 67 % (45-73)
[2022-04-30 11:54] LABS: Platelet Estimate NORMAL (NORMAL); Platelet Morphology Comment NORMAL; RBC Morphology NORMAL
== END 2022-04-30 09:04 | disposition home or self-care (01) ==
LOC: HO.LAB 09:03
PROVIDERS: Visit Provider Clinical Nurse Specialist Psychiatric/Mental Health, Child & Adolescent
DX: F31.2 Bipolar disorder, current episode manic severe with psychotic features (principal); F60.3 Borderline personality disorder; Z79.899 Other long term (current) drug therapy
CPT/HCPCS: 36415; 80048; 80178; 84439; 84443; 85007; 85027

== ENCOUNTER 2022-06-15 13:31 | Inpatient (IN) | payer OTHER, SELFPAY ==
[2022-06-15 13:55] VITALS: BP 134/82; PULSE 85; RESP 18; TEMP 36.6; O2SAT 98; BMI 25.5
[2022-06-15 15:12] LABS: MANUAL DIFF FLAG NO
[2022-06-15 15:19] LABS: Basophils Percent Auto 0.2 % (0-2); Eosinophils Absolute Auto 0.1 X10*3/uL (0.0-0.4); Hematocrit 51.2 % (42.0-52.0); Hemoglobin 16.9 g/dl (14.0-18.0); Imm Gran Abs Auto 0.06 X10*3/uL (0.00-0.03); Imm Gran Pct Auto 0.5 % (0.0-0.4); Lymphocytes Absolute Auto 1.9 X10*3/uL (1.2-4.9); Lymphocytes Percent Auto 15.5 % (20-40); Mean Corpuscular Hemoglobin 28.2 pg (27.0-33.0); Mean Corpuscular Volume 85.3 fL (80.0-98.0); Mean Platelet Volume 9.3 fL (9.4-12.4); Monocytes Absolute Auto 0.5 X10*3/uL (0.1-1.2); Monocytes Percent Auto 3.8 % (2-11); Neutrophils Absolute Auto 9.7 x10*3/uL (2.0-8.3); Platelet Count 288 X10*3/uL (160-400); Red Cell Distribution Width 12.2 % (11.0-16.0); White Blood Count 12.2 X10*3/uL (4.8-10.8)
[2022-06-15 15:31] LABS: Acetaminophen LAB < 1 mcg/mL (<30); Alanine Aminotransferase 35 U/L (0-40); Alkaline Phosphatase 42 U/L (39-117); Anion Gap 16 (12-20); Aspartate Amino Transferase 24 U/L (5-37); Bilirubin Total 0.4 mg/dL (0.0-1.0); Blood Urea Nitrogen 12 mg/dL (9-16); Calcium 10.2 mg/dL (8.4-10.2); Carbon Dioxide 27 mmol/L (22-29); Chloride 102 mmol/L (96-108); Estimated Glomerular Filt Rate > 60; Ethanol < 10 mg/dL; Glucose Random 90 mg/dL (60-115); Potassium 4.7 mmol/L (3.3-5.1); Salicylate < 5.0 mg/dL (15-30); Sodium 140 mmol/L (135-145); Total Protein 7.6 g/dL (6.5-8.0)
--- NOTE | 2022-06-15 15:37 | ED_ITS ---
HPI - Psych General Chief Complaint: Psychiatric Symptoms Stated Complaint: crisis eval Time Seen by Provider: 06/15/22 14:50 Source: patient and old records reviewed Mode of arrival: ambulatory Limitations: no limitations History of Present Illness HPI Narrative: 31 yo male with hx of bipolar, explosive disorder comes in with c/o issues with roommate resulting in statements that he wants to take his pills so he doesn't wake up. He states he is feeling suicidal because of this issue. MD complaint: suicidal ideation and feels depressed Onset (ago): day(s) (1) Duration: getting worse History of same: Yes Relieving factors: none Exacerbating factors: other (life stress) Context: significant life stressor Associated psychiatric symptoms: depression and suicidal ideation Associated symptoms: denies other symptoms Treatments prior to arrival: none If self harm: admits thoughts of self harm Related Data Home Medications Medication Instructions Recorded Confirmed lithium carbonate 150 mg capsule 1 cap PO BID 01/12/21 01/12/21 lithium carbonate 300 mg capsule 1 cap PO BID 01/12/21 01/12/21 oxcarbazepine 300 mg tablet 300 mg PO BID 01/12/21 01/12/21 risperidone 2 mg tablet (Risperdal) 1 tab PO BEDTIME 01/12/21 01/12/21 Previous Rx's Medication Instructions Recorded buspirone 5 mg tablet 15 mg PO TID 15 days #90 tabs 12/17/20 chlorpromazine 100 mg tablet 1 tab PO BEDTIME #10 tabs 12/17/20 clonidine HCl 0.1 mg tablet 0.1 mg PO BEDTIME 30 days #10 tabs 12/17/20 clonidine HCl 0.1 mg tablet 0.1 mg PO DAILY PRN Anxiety #10 12/17/20 tabs divalproex 250 mg tablet,delayed 250 mg PO BID #20 tabs 12/17/20 release hydroxyzine HCl 50 mg tablet 50 mg PO Q6H PRN Anxiety #20 tabs 12/17/20 risperidone 0.5 mg tablet 0.5 mg PO Q4H PRN agitation #40 12/17/20 tabs sumatriptan succinate 50 mg tablet 1 tab PO DAILY PRN Migraine 12/17/20 Headache #10 tabs naproxen 500 mg tablet (Naprosyn) 500 mg PO BID #20 tabs 08/01/21 Allergies Allergy/AdvReac Type Severity Reaction Status Date / Time amoxicillin [AMOXICILLIN] Allergy Intermediate RASH Verified 11/18/20 00:14 bupropion [BUPROPION] Allergy Unknown UNKNOWN Verified 11/18/20 00:14 Review of Systems Review of Systems: Constitutional : No Fever, No Chills ENT/Mouth : No Ear Pain, No Nasal Congestion, No sore throat Eyes: No Eye Pain, No Swelling, No Redness Cardiovascular : No Chest Pain, No SOB Respiratory : No Cough, No Sputum, No Dyspnea Gastrointestinal : No Nausea, No Vomiting, No Diarrhea, No Hematochezia, No Melena Genitourinary : No Dysuria, No Urinary Frequency, No Hematuria Musculoskeletal : No Myalgias Skin : No Skin Lesions, No rash Neuro : No Weakness, No Numbness, No Paresthesias, No Dizziness, No Headache Psych : positive Anxiety, positive Depression, positive SI no HI Heme/Lymph: No Lymphadenopathy Endocrine : No Polyuria, No Polydipsia All other systems reviewed and are negative [facility] Past Medical History Attestation statement: The following information was validated with the patient. Medical History Bipolar disorder Hallucinogen use with hallucinogen-induced disorder Intermittent explosive disorder Perforated nasal septum Stimulant use disorder Social History Social History Household Members: Significant Other Household Members Other:: girlfriend Housing: Apartment Do you presently have visiting nurse or other home services: No Alcohol intake: former Patient Tobacco Use Status: Current everyday Tobacco user Cigarette Packs Per Day: 1 Cigarettes Per Day: 20.0 Years Smoked: 14 Smoked in Last 30 Days: Yes Second Hand Smoke Exposure: Yes Use of substances other than those prescribed or required for medical reasons: Yes Substance Use Type: Marijuana Advance Directives: No Advance Directives Information Provided: No service: No Sexual orientation: Decline to Answer Physical Exam Vital Signs: Vital Signs: Last Vital Signs Temp 97.9 F 06/15/22 13:55 Pulse 85 06/15/22 13:55 Resp 18 06/15/22 13:55 BP 134/82 06/15/22 13:55 Pulse Ox 98 06/15/22 13:55 O2 Del Method 06/15/22 13:55 BMI result Body Mass Index 25.5 Appearance: Alert. Oriented X3. No acute distress. Eyes: Pupils equal, round and reactive to light. ENT: Pharynx normal. Neck: Normal inspection. Neck supple. CVS: Normal heart rate and rhythm. Pulses normal. Respiratory: No respiratory distress. Breath sounds normal. Abdomen: Soft and nontender. Skin: Skin warm and dry. Normal skin color. Normal skin turgor. Extremities: No lower extremity edema. No calf ttp Neuro: Oriented X 3. No motor deficit. No sensory deficit. CN 2-12 intact Course Course Course Narrative: Physician observation started at 411pm Patient placed in physician observation because the patient needed more time for N to assess the need for psych admission. At the time observation was started the patient's vitals were stable, patient is alert and oriented but slightly anxious, Neuro: nonfocal, CV RRR, Lungs clear MDM - Psych MDM Narrative Medical decision making narrative: 31 yo male with hx of bipolar disorder here with c/o depression and SI - he has no medical complaints at this time will obtain labs, N consult Lab Data Result diagrams: 06/15/22 15:00 06/15/22 15:00 Labs: Lab Results 06/15/22 06/15/22 Range/Units 15:00 15:00 WBC 12.2 H (4.8-10.8) X10*3/uL RBC 6.00 H (4.60-5.80) X10*6/uL Hgb 16.9 (14.0-18.0) g/dl Hct 51.2 (42.0-52.0) % MCV 85.3 (80.0-98.0) fL MCH 28.2 (27.0-33.0) pg MCHC 33.0 (31.0-36.0) g/dl RDW 12.2 (11.0-16.0) % Plt Count 288 (160-400) X10*3/uL MPV 9.3 L (9.4-12.4) fL Immature Gran % (Auto) 0.5 H (0.0-0.4) % Neut % (Auto) 79.0 H (45-73) % Lymph % (Auto) 15.5 L (20-40) % [place] % (Auto) 3.8 (2-11) % Eos % (Auto) 1.0 (0-4) % Baso % (Auto) 0.2 (0-2) % Lymph # (Auto) 1.9 (1.2-4.9) X10*3/uL [place] # (Auto) 0.5 (0.1-1.2) X10*3/uL Eos # (Auto) 0.1 (0.0-0.4) X10*3/uL Baso # (Auto) 0.0 (0.0-0.2) X10*3/uL Abs Immat Gran (auto) 0.06 H (0.00-0.03) X10*3/uL Absolute Neuts (auto) 9.7 H (2.0-8.3) x10*3/uL Absolute Nucleated RBC 0.000 (0.0-0.012) X10*3/uL Nucleated RBC % (auto) 0.0 (0.0-0.2) /100WBC Sodium 140 (135-145) mmol/L Potassium 4.7 (3.3-5.1) mmol/L Chloride 102 (96-108) mmol/L Carbon Dioxide 27 (22-29) mmol/L Anion Gap 16 (12-20) BUN 12 (9-16) mg/dL Creatinine 1.00 (0.5-1.4) mg/dL Estim Creat Clear Calc 115.0 Estimated GFR > 60 Random Glucose 90 (60-115) mg/dL Calcium 10.2 D (8.4-10.2) mg/dL Total Bilirubin 0.4 (0.0-1.0) mg/dL AST 24 (5-37) U/L ALT 35 (0-40) U/L Alkaline Phosphatase 42 (39-117) U/L Total Protein 7.6 (6.5-8.0) g/dL Albumin 5.0 (3.5-5.0) g/dL Salicylates < 5.0 L (15-30) mg/dL Acetaminophen < 1 (<30) mcg/mL Ethyl Alcohol < 10 mg/dL Discharge Plan Discharge Clinical Impression: Depression, Acute anxiety Patient Disposition: Still a Patient Prescriptions: No Action lithium carbonate 150 mg capsule 1 cap PO BID lithium carbonate 300 mg capsule 1 cap PO BID risperidone [Risperdal] 2 mg tablet 1 tab PO BEDTIME oxcarbazepine 300 mg Tablet 300 mg PO BID clonidine HCl 0.1 mg Tablet 0.1 mg PO DAILY PRN (Reason: Anxiety) Qty: 10 0RF Protocol: Hold for SBP< HOLD for SBP < : 90 divalproex 250 mg Tablet,Delayed Release (Dr/Ec) 250 mg PO BID Qty: 20 0RF hydroxyzine HCl 50 mg Tablet 50 mg PO Q6H PRN (Reason: Anxiety) Qty: 20 0RF risperidone 0.5 mg Tablet 0.5 mg PO Q4H PRN (Reason: agitation) Qty: 40 0RF buspirone 5 mg Tablet 15 mg PO TID 15 Days Qty: 90 0RF clonidine HCl 0.1 mg Tablet 0.1 mg PO BEDTIME 30 Days Qty: 10 0RF Protocol: Hold for SBP< HOLD for SBP < : 90 chlorpromazine 100 mg tablet 1 tab PO BEDTIME Qty: 10 0RF sumatriptan succinate 50 mg tablet 1 tab PO DAILY PRN (Reason: Migraine Headache) Qty: 10 0RF naproxen [Naprosyn] 500 mg tablet 500 mg PO BID Qty: 20 0RF
[2022-06-15] MEDS: Nicotine 21 MG PATCH.TD24 TRANSDERMA (16:00)
[2022-06-15 16:06] LABS: Amphetamine Screen Urine Not Detected (Not Detect); Barbiturates, Urine Not Detected (Not Detect); Benzodiazepines Screen Urine Not Detected (Not Detect); Cannabinoid Screen Urine Not Detected (Not Detect); Cocaine Screen Urine Not Detected (Not Detect); Fentanyl, urine Not Detected (Not Detect); Opiate Screen Urine Not Detected (Not Detect); Phencyclidine Screen Urine Not Detected (Not Detect)
[2022-06-15 16:10] LABS: COVID-19 Test Negative (Negative); IDNOW Serial# 16C4AD1C
--- NOTE | 2022-06-15 16:32 | PC.NURSE ---
[facility] smart sheet completed
[2022-06-15 17:13] LABS: Lithium 0.55 mmol/L (0.60-1.20)
--- NOTE | 2022-06-15 17:33 | PC.NURSE ---
Pharmacy called for med rec. Awaiting pharmacy.
[2022-06-15 21:43] VITALS: BP 120/75; PULSE 79; O2SAT 96
[2022-06-15] MEDS: busPIRone HCl 10 MG TABLET 30 MG PO (21:49)
[2022-06-15] MEDS: Prazosin HCL 5 MG CAPSULE PO (21:49)
[2022-06-15] MEDS: Lithium Carbonate 300 MG CAPSULE PO (21:49)
[2022-06-15] MEDS: Mirtazapine 7.5 MG TABLET PO (21:49)
[2022-06-15] MEDS: Lithium Carbonate 300 MG TABLET 150 MG PO (21:58)
[2022-06-16] MEDS: Lithium Carbonate 300 MG TABLET 150 MG PO ×2 (09:03→20:53)
[2022-06-16] MEDS: Lurasidone HCl 20 MG TABLET 60 MG PO (09:03)
[2022-06-16] MEDS: busPIRone HCl 10 MG TABLET 30 MG PO ×2 (09:03→20:54)
[2022-06-16] MEDS: Lithium Carbonate 300 MG CAPSULE PO ×2 (09:05→20:53)
[2022-06-16 09:09] LABS: Estimated Average Glucose 91 mg/dL; Hemoglobin A1C 118.1046 umol/L; Hemoglobin A1c % 4.8 %
[2022-06-16 09:26] LABS: Cholesterol 161 mg/dL; HDL Cholesterol 36 mg/dL; LDL Cholesterol Calculated 94 mg/dl; Magnesium 2.1 mg/dL (1.6-2.6); Triglycerides 159 mg/dL
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
[2022-06-16 09:40] LABS: Valproate < 2.0 mcg/mL (50.0-100.0)
[2022-06-16 09:50] LABS: Free T4 (Free Thyroxine) 1.08 ng/dL (0.71-1.85); Thyroid Stimulating Hormone 1.69 uIU/mL (0.32-4.0)
[2022-06-16 09:57] LABS: Folate 12.9 ng/mL (> or = 4.0); Vitamin B12 671 pg/mL (200-900)
[2022-06-16 10:43] VITALS: BP 115/64; PULSE 79; RESP 16; TEMP 36.9; O2SAT 95
[2022-06-16] MEDS: Nicotine 21 MG PATCH.TD24 TRANSDERMA (11:02)
[2022-06-16] MEDS: Nicotine Polacrilex Lozenge 2 MG LOZENGE BUCCAL ×4 (11:06→20:55)
[2022-06-16] MEDS: hydrOXYzine HCL 25 MG TABLET PO (18:01)
[2022-06-16 20:43] VITALS: BP 119/72; PULSE 83; RESP 16; TEMP 36.6; O2SAT 97
[2022-06-16] MEDS: Mirtazapine 15 MG TABLET PO (20:53)
[2022-06-16] MEDS: Prazosin HCL 5 MG CAPSULE PO (20:53)
[2022-06-17 08:41] VITALS: BP 116/71; PULSE 69; TEMP 36.6; O2SAT 96
[2022-06-17] MEDS: Nicotine 21 MG PATCH.TD24 TRANSDERMA (09:09)
[2022-06-17] MEDS: Lithium Carbonate 300 MG CAPSULE PO (09:09)
[2022-06-17] MEDS: busPIRone HCl 10 MG TABLET 30 MG PO (09:09)
[2022-06-17] MEDS: Lurasidone HCl 20 MG TABLET 60 MG PO (09:10)
[2022-06-17] MEDS: Lithium Carbonate 300 MG TABLET 150 MG PO (09:10)
[2022-06-17] MEDS: Nicotine Polacrilex Lozenge 2 MG LOZENGE BUCCAL (12:02)
--- NOTE | 2022-06-17 13:47 | PM.PSYDC ---
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: Status: Acute (3) Amphetamine and amphetamine derivative dependence: Status: Acute DS: Medications Discharge Medications Home Medications: Home Medications Medication Instructions Recorded Confirmed lithium carbonate 150 mg capsule 1 cap PO BID 01/12/21 06/15/22 lithium carbonate 300 mg capsule 1 cap PO BID 01/12/21 06/15/22 buspirone 30 mg tablet 1 tab PO BID 06/15/22 06/15/22 lurasidone 60 mg tablet (Latuda) 1 tab PO QAM 06/15/22 06/15/22 prazosin 5 mg capsule 1 cap PO BEDTIME 06/15/22 06/15/22 Previous Rx's Medication Instructions Recorded mirtazapine 30 mg tablet 30 mg PO BEDTIME #30 tabs 06/17/22 nicotine (polacrilex) 2 mg buccal 2 mg buccal Q2H PRN Nicotine 06/17/22 lozenge Cravings #30 ea Mental Status Exam Mental Status Exam Narrative: Appearance: casually groomed, fair hygiene in NAD Behavior:cooperative psychomotor: no agitation or retardation noted Speech:clear, normal rate/rhythm, volume, spontaneous Thought process: linear Thought content:no signs of psychosis, future oriented looking forward to continue tx. Mood: better Affect: congruent SI:none HI:none VH/AH:none Delusions: none Insight/judgment: fair x 2. Memory/cog: alert, oriented x 3. grossly intact to conversational testing. Data Data Completed and Pending Completed studies during hospitalization [Text1]: 06/15/22 06/15/22 06/15/22 15:00 15:00 15:41 WBC 12.2 H RBC 6.00 H Hgb 16.9 Hct 51.2 MCV 85.3 MCH 28.2 MCHC 33.0 RDW 12.2 Plt Count 288 MPV 9.3 L Immature Gran % (Auto) 0.5 H Neut % (Auto) 79.0 H Lymph % (Auto) 15.5 L [place] % (Auto) 3.8 Eos % (Auto) 1.0 Baso % (Auto) 0.2 Lymph # (Auto) 1.9 [place] # (Auto) 0.5 Eos # (Auto) 0.1 Baso # (Auto) 0.0 Abs Immat Gran (auto) 0.06 H Absolute Neuts (auto) 9.7 H Absolute Nucleated RBC 0.000 Nucleated RBC % (auto) 0.0 Sodium 140 Potassium 4.7 Chloride 102 Carbon Dioxide 27 Anion Gap 16 BUN 12 Creatinine 1.00 Estim Creat Clear Calc 115.0 Estimated GFR > 60 Random Glucose 90 Estimat Average Glucose Hemoglobin A1c % Calcium 10.2 D Magnesium Total Bilirubin 0.4 AST 24 ALT 35 Alkaline Phosphatase 42 Total Protein 7.6 Albumin 5.0 Triglycerides Cholesterol LDL Cholesterol, Calc HDL Cholesterol Vitamin B12 Folate TSH Free T4 Salicylates < 5.0 L Urine Opiates Screen Not Detected Urine Fentanyl Screen Not Detected Acetaminophen < 1 Ur Barbiturates Screen Not Detected Valproic Acid Ur Phencyclidine Scrn Not Detected Ur Amphetamines Screen Not Detected U Benzodiazepines Scrn Not Detected [place] Urine Cocaine Screen Not Detected U Marijuana (THC) Screen Not Detected Ethyl Alcohol < 10 COVID-19 ([place] COVID-Inter[place] 06/15/22 06/15/22 06/16/22 15:41 16:37 08:32 WBC RBC Hgb Hct MCV MCH MCHC RDW Plt Count MPV Immature Gran % (Auto) Neut % (Auto) Lymph % (Auto) [place] % (Auto) Eos % (Auto) Baso % (Auto) Lymph # (Auto) [place] # (Auto) Eos # (Auto) Baso # (Auto) Abs Immat Gran (auto) Absolute Neuts (auto) Absolute Nucleated RBC Nucleated RBC % (auto) Sodium Potassium Chloride Carbon Dioxide Anion Gap BUN Creatinine Estim Creat Clear Calc Estimated GFR Random Glucose Estimat Average Glucose 91 Hemoglobin A1c % 4.8 Calcium Magnesium Total Bilirubin AST ALT Alkaline Phosphatase Total Protein Albumin Triglycerides Cholesterol LDL Cholesterol, Calc HDL Cholesterol Vitamin B12 Folate TSH Free T4 Salicylates Urine Opiates Screen Urine Fentanyl Screen Acetaminophen Ur Barbiturates Screen Valproic Acid Ur Phencyclidine Scrn Ur Amphetamines Screen U Benzodiazepines Scrn [place] 0.55 L Urine Cocaine Screen U Marijuana (THC) Screen Ethyl Alcohol COVID-19 ([place]) Negative COVID-19 [place] Com See Note 06/16/22 06/16/22 06/16/22 08:32 08:32 08:32 WBC RBC Hgb Hct MCV MCH MCHC RDW Plt Count MPV Immature Gran % (Auto) Neut % (Auto) Lymph % (Auto) [place] % (Auto) Eos % (Auto) Baso % (Auto) Lymph # (Auto) [place] # (Auto) Eos # (Auto) Baso # (Auto) Abs Immat Gran (auto) Absolute Neuts (auto) Absolute Nucleated RBC Nucleated RBC % (auto) Sodium Potassium Chloride Carbon Dioxide Anion Gap BUN Creatinine Estim Creat Clear Calc Estimated GFR Random Glucose Estimat Average Glucose Hemoglobin A1c % Calcium Magnesium 2.1 Total Bilirubin AST ALT Alkaline Phosphatase Total Protein Albumin Triglycerides 159 Cholesterol 161 LDL Cholesterol, Calc 94 HDL Cholesterol 36 Vitamin B12 671 Folate 12.9 TSH 1.69 Free T4 1.08 Salicylates Urine Opiates Screen Urine Fentanyl Screen Acetaminophen Ur Barbiturates Screen Valproic Acid < 2.0 L Ur Phencyclidine Scrn Ur Amphetamines Screen U Benzodiazepines Scrn [place] Urine Cocaine Screen U Marijuana (THC) Screen Ethyl Alcohol COVID-19 ([place] COVID-19 Clin Com DS: Summary Hospital Course Hospital Course: HPI:Subjective Notes: [place] Warning, Conditional Voluntary and 3 Day Narrative: Mr. Carlson is a 31 year-old male with hx of MDMA use disorder as well as cocaine and amphetamine use disorder who is in early remission. He is currently residing at residential substance use treatment program for the past 2 months. He reports he has not used any substances since 04/17 of this year. He reports he had incident with roommate at residential program and became very upset and was having suicidal ideation. He self presented to [facility] ED at recommendation of his OP therapist. Utox was neg. BAL neg. On the unit, Mr. Carlson presents as calm, and cooperative. He reports it's been 2 months he has not used substances. He is known to this software writer through previous admission when he was using MDMA and would typically present as extremely agitated and psychotic. He does not present as psychotic this time. He denies VH/AH. He reports nightmares, not resolved with prazosin. He reports some difficulty falling and staying asleep. He reports he feels less overhwelmed about incident with roommate and no longer has suicidal thoughts. He presents as future oriented, looking to continue OP psych tx and substance use treatment at residential program. Past Psychiatric History: Inpatient: 12/12/2019- depression/psychosis; 11/02/2019 Arbgio Chaudhry; 2020 M5 ? OP: [facility] ? Medication trials: thorazine, buspar, lithium, olanzapine, seroquel, propanolol, prazosin (incontinence) Medical Evaluation Reviewed: Yes HOSPITAL COURSE On the unit, Mr. Carlson was admitted on a CV and placed on 15 mins checks for safety. Pt presented as much calmer, no longer experiencing suicidal or homicidal ideation. He did not appear internally preoccupied. No aggression towards self or others. His main concern was vivid dreams which he has experienced for a while not resolved with prazosin even at higher doses up to 10mg po qhs. He agreed to increase remeron to 15mg po qhs. His affect was bright, non labile. He appears in much more stable condition than last year when he was actively using MDMA, amphetamines and cocaine. He appears committed to continue residential substance use treatment. He was eating well. He was visible on the unit. No behavioral concerns. No incidences of disruptive behaviors nor use of restraints. He agreed to continue OP psych treatment and return to residentila program. Status at Discharge Cognitive/behavioral status at discharge: Pt with bright, non labile, no psychosis or delusions. No SI/HI. No aggression towards self or others. Future oriented looking forward to continue OP treatment. Functional status at discharge: independent ambulation Overall status at discharge: patient is progressing back to baseline Time Spent with Patient Time attestation: Total time spent providing and/or coordinating discharge services: Time spent: Greater than 30 minutes Discharge Plan Discharge Patient Disposition: Home Health Service Discharge Diagnosis: Bipolar disorder MDMA/Cocaine use disorder in early remission Referrals: Talha Layne (Psychiatry) [Other] - 06/18/22 5:40 pm Faiza Campo (Therapy) [Other] - 06/19/22 2:00 pm (IN PERSON APPOINTMENT) Tony Rey FNP [Primary Care Provider] - 1 Week Discharge Medications: New nicotine (polacrilex) 2 mg Lozenge 2 mg buccal Q2H PRN (Reason: Nicotine Cravings) Qty: 30 0RF mirtazapine 30 mg tablet 30 mg PO BEDTIME Qty: 30 0RF Continued lithium carbonate 150 mg capsule 1 cap PO BID lithium carbonate 300 mg capsule 1 cap PO BID Latuda 60 mg tablet 1 tab PO QAM buspirone 30 mg tablet 1 tab PO BID prazosin 5 mg capsule 1 cap PO BEDTIME Discontinued mirtazapine 7.5 mg tablet 1 tab PO BEDTIME Discharge Orders: Discharge Order (Routine); Ordered 06/17/22 Ordered By: Brianna Dickey Diet: Regular diet Activity on Discharge: As tolerated Stand Alone Forms: Patient Portal Discharge page, Community Support Care Plan Goals: 1. Maintain mood 2. No SI/HI 3. No signs of psychosis or delusions 4. No signs of aggression towards self or others Health Concerns: Follow up with PCP Plan of Treatment: 1. Take medications as prescribed 2. Go to nearest ED or call 911 in event of emergency Assessment: Pt with bright, non labile mood. No SI/HI. No signs of psychosis or delusions. No VH/AH. No aggression towards self or others. Future oriented, committed to continue substance use treatment.
== END 2022-06-17 14:45 | disposition home health service (06) | DRG 753 ==
LOC: HO.ED 20:01 → HO.PADLT16 22:39
PROVIDERS: Physician Assistant Medical; Admitting Provider Clinical Nurse Specialist Psychiatric/Mental Health, Adult; Emergency Provider Emergency Medicine; PCP Nurse Practitioner Family; Visit Provider Clinical Nurse Specialist Psychiatric/Mental Health, Adult
DX: F31.30 Bipolar disorder, current episode depressed, mild or moderate severity, unspecified (principal); F15.20 Other stimulant dependence, uncomplicated; F17.210 Nicotine dependence, cigarettes, uncomplicated; F16.20 Hallucinogen dependence, uncomplicated; Z20.822 Contact with and (suspected) exposure to COVID-19; Z71.6 Tobacco abuse counseling; Z88.0 Allergy status to penicillin; Z88.8 Allergy status to other drugs, medicaments and biological substances; Z79.899 Other long term (current) drug therapy
CPT/HCPCS: 36415; 80053; 80061; 80143; 80164; 80178; 80179; 80307; 82077; 82607; 82746; 83036; 83735; 84439; 84443; 85025; 87635; 99285

== ENCOUNTER 2023-10-25 08:55 | Emergency (ER) | payer BC, SELFPAY ==
[2023-10-25 08:59] VITALS: BP 141/100; PULSE 110; RESP 20; TEMP 37; O2SAT 97; BMI 21.1
[2023-10-25 10:07] LABS: Amphetamine Screen Urine Not Detected (Not Detect); Barbiturates, Urine Not Detected (Not Detect); Benzodiazepines Screen Urine Not Detected (Not Detect); Cannabinoid Screen Urine POSITIVE (Not Detect); Cocaine Screen Urine POSITIVE (Not Detect); Fentanyl, urine Not Detected (Not Detect); Opiate Screen Urine Not Detected (Not Detect); Phencyclidine Screen Urine Not Detected (Not Detect)
--- NOTE | 2023-10-25 10:11 | ED.PSYCH ---
HPI - Psych General Chief Complaint: Psychiatric Symptoms Stated Complaint: Psych eval Time Seen by Provider: 10/25/23 10:07 Source: patient Mode of arrival: ambulatory Limitations: no limitations History of Present Illness HPI Narrative: Patient is a 33-year-old male with history of Bipolar disorder, intermittent explosive disorder presenting to the emergency department voluntarily reporting increased agitation, mood swings, irritability, and suicidal thoughts without a specific plan. Has also been having more obsessive/compulsive behaviors. States he was seeing a therapist at [facility] but had a change to his insurance and thought he was no longer able to make appointments so he began rationing his lithium for the past 2 months. Also admits to self-medicating with cocaine and marijuana. Denies any chest pain, palpitations, dyspnea. Denies alcohol or other drug use. Denies homicidal ideation, auditory or visual hallucinations. Cites work as a significant stressor. Denies physical complaints. Reports recently tested positive for Covid on 10/21 but symptoms have improved. MD complaint: suicidal ideation, feels depressed, anxiety and substance abuse Onset (ago): month(s) Duration: getting worse History of same: Yes Context: recent drug abuse and not taking psychiatric medications Associated psychiatric symptoms: depression, suicidal ideation and racing thoughts Associated symptoms: denies other symptoms Treatments prior to arrival: none If self harm: admits thoughts of self harm Related Data Home Medications Medication Instructions Recorded Confirmed lithium carbonate 150 mg capsule 1 cap PO BID 01/12/21 06/15/22 lithium carbonate 300 mg capsule 1 cap PO BID 01/12/21 06/15/22 buspirone 30 mg tablet 1 tab PO BID 06/15/22 06/15/22 lurasidone 60 mg tablet (Latuda) 1 tab PO QAM 06/15/22 06/15/22 prazosin 5 mg capsule 1 cap PO BEDTIME 06/15/22 06/15/22 Previous Rx's Medication Instructions Recorded mirtazapine 30 mg tablet 30 mg PO BEDTIME #30 tabs 06/17/22 nicotine (polacrilex) 2 mg buccal 2 mg buccal Q2H PRN Nicotine 06/17/22 lozenge Cravings #30 ea Allergies Allergy/AdvReac Type Severity Reaction Status Date / Time amoxicillin [AMOXICILLIN] Allergy Intermediate RASH Verified 10/25/23 09:04 bupropion [BUPROPION] Allergy Unknown UNKNOWN Verified 10/25/23 09:04 Review of Systems Review of Systems: As per HPI. Yes all other systems are reviewed and are negative Constitutional: Constitutional: Reports as per HPI [facility] Past Medical History Medical History Bipolar disorder Hallucinogen use with hallucinogen-induced disorder Intermittent explosive disorder Perforated nasal septum Stimulant use disorder Social History Social History Household Members: Other Household Members Other:: girlfriend Housing: Other Housing Other:: sober recovery program Do you presently have visiting nurse or other home services: No Unable to assess alcohol history related to: Unknown Alcohol intake: former Comment: patient asleep Patient Tobacco Use Status: Current everyday Tobacco user Cigarette Packs Per Day: 1 Cigarettes Per Day: 20.0 Years Smoked: 14 Smoked in Last 30 Days: Yes Second Hand Smoke Exposure: Yes Use of substances other than those prescribed or required for medical reasons: Yes Substance Use Type: Crack/Cocaine and Marijuana Advance Directives: No Advance Directives Information Provided: No Healthcare Proxy: No Guardian: No service: No Sexual orientation: Straight/Heterosexual Physical Exam Vital Signs: Vital Signs: Last Vital Signs Temp 98.7 F 10/25/23 11:35 Pulse 96 10/25/23 11:35 Resp 16 10/25/23 11:35 BP 121/88 10/25/23 11:35 Pulse Ox 97 10/25/23 11:35 O2 Del Method Room Air 10/25/23 11:35 BMI result Body Mass Index 21.1 Vital signs have been reviewed and appear to be correct. Blood pressure elevated. Heart rate slightly tachycardic. Respiratory rate normal. Temperature normal. Oxygen saturation normal. Const: General: cooperative, healthy appearing and no acute distress Orientation/consciousness: oriented to person, oriented to place, oriented to time and patient oriented x3 Limitations: no limitations HEENT: Head: Yes normocephalic and Yes atraumatic Ears: external ears normal General nose exam: Normal external nose present Face and sinus: Yes face symmetric Mouth: oropharynx normal and moist mucous membranes Throat: Yes uvula midline Eyes: Pupils: Equal, round and reactive pupils present Neck: Neck: Yes normal visual inspection and Yes supple Resp: Effort & Inspection: normal respiratory effort and able to speak in complete sentences Auscultation: clear to auscultation bilaterally Cardio: Rate: regular rate Rhythm: regular rhythm Heart sounds: S1 normal heart sound present and S2 normal heart sound present GI: Palpation (GI): Soft to palpation and nontender Auscultation: normoactive bowel sounds : General: Yes no CVA tenderness Back/Spine/Pelvis: Back: no CVA tenderness Skin: General skin exam: elasticity normal and turgor normal Neuro: General: oriented to person, oriented to place, oriented to time, patient oriented x3, moves all extremities, no focal motor deficits and CN's II-XI intact bilaterally Cranial nerves: Yes Equal, round and reactive pupils present Cognition (Neuro): normal cognition Extrem: General: Yes full ROM, Yes no pedal edema and Yes no calf tenderness Psych: Appearance: grossly normal Mental Status: mental status grossly normal Speech and movement: Pressured speech present Affect: normal affect Attitude: cooperative Thought process: Normal thought process present Thought content: Suicidality present, no homicidality, no hallucinations, Depressive thoughts present, Compulsions present (thought content) and Obsession(s) present Insight: Fair insight present (Psych) Judgement: Fair judgement present (Psych) Course Reevaluation(s) Reevaluation #1: Per Karla from CARE team, patient is stable for discharge home with an [facility] bed referral for tomorrow. He has prescriptions for his medications as of today. Patient is comfortable with this plan and CARE team feels patient is safe for discharge. Time: 15:28 Medications Administered Discontinued Medications Generic Name Dose Route Start Last Admin Trade Name Gema PRN Reason Stop Dose Admin Clonazepam 1 mg 10/25/23 10:42 10/25/23 10:50 Clonazepam 1 Mg Tablet PO 10/25/23 10:43 1 mg ONCE ONE Administration Nicotine 21 mg 10/25/23 13:05 10/25/23 13:23 Nicotine 21 Mg Patch.[id number] TRANSDERMA 10/25/23 13:06 21 mg ONCE ONE Administration Medical Decision Making Medical Decision Making MDM Narrative: Patient is a 33-year-old male with history of Bipolar disorder, intermittent explosive disorder presenting to the emergency department voluntarily reporting increased agitation, mood swings, irritability, and suicidal thoughts without a specific plan. On exam patient is awake, A+Ox3, VS WNL, afebrile, normal neurological exam without focal deficits, physical exam findings as above. Given reported symptoms and physical exam findings, initial differential includes bipolar disorder, anxiety, depression, suicidal ideation. Patient requesting clonazepam for anxiety, is prescribed 1mg, will order. Plan: medicated with clonazepam, check labs/UA/urine drug screen, CARE team eval once medically cleared Labs unremarkable. No evidence of infection on UA. Urine drug screen positive for cocaine and marijuana. Covid negative. Will medically clear patient at this time for CARE team eval and place on physician observation. Differential Diagnosis Differential Diagnoses: The differential diagnosis associated with the presentation includes As per MDM. Admission/Observation Consideration of admission/observation: Escalation of care including admission/observation considered Lab Data [facility] Lab Attestation statement: I reviewed the patient's lab results. As per MDM. 10/25/23 10:44 10/25/23 10:44 Labs: Lab Results 10/25/23 10/25/23 Range/Units 09:50 10:44 WBC 10.7 (4.8-10.8) X10*3/uL RBC 5.41 (4.60-5.80) X10*6/uL Hgb 15.4 (14.0-18.0) g/dl Hct 44.9 (42.0-52.0) % MCV 83.0 (80.0-98.0) fL MCH 28.5 (27.0-33.0) pg MCHC 34.3 (31.0-36.0) g/dl RDW 12.4 (11.0-16.0) % Plt Count 314 (160-400) X10*3/uL MPV 9.4 (9.4-12.4) fL Immature Gran % (Auto) 0.1 (0.0-0.4) % Neut % (Auto) 75.2 H (45-73) % Lymph % (Auto) 16.3 L (20-40) % [place] % (Auto) 5.0 (2-11) % Eos % (Auto) 3.1 (0-4) % Baso % (Auto) 0.3 (0-2) % Lymph # (Auto) 1.7 (1.2-4.9) X10*3/uL [place] # (Auto) 0.5 (0.1-1.2) X10*3/uL Eos # (Auto) 0.3 (0.0-0.4) X10*3/uL Baso # (Auto) 0.0 (0.0-0.2) X10*3/uL Abs Immat Gran (auto) 0.01 (0.00-0.03) X10*3/uL Absolute Neuts (auto) 8.1 (2.0-8.3) x10*3/uL Absolute Nucleated RBC 0.000 (0.0-0.012) X10*3/uL Nucleated RBC % (auto) 0.0 (0.0-0.2) /100WBC Sodium 139 (135-145) mmol/L Potassium 4.2 (3.3-5.1) mmol/L Chloride 107 (96-108) mmol/L Carbon Dioxide 27 (22-29) mmol/L Anion Gap 9 L (12-20) BUN 9 (9-16) mg/dL Creatinine 0.84 (0.5-1.4) mg/dL Estim Creat Clear Calc 122.6 Estimated GFR > 60 Random Glucose 91 (60-115) mg/dL Calcium 10.0 (8.4-10.2) mg/dL Urine Color Yellow Urine Appearance Clear Urine pH 7.5 (5.0-9.0) Ur Specific [place] <= 1.005 (1.005-1.025) Urine Protein Negative (Neg-Trace) mg/dL Urine Glucose (UA) Negative (Negative) mg/dL Urine Ketones Negative (Negative) mg/dL Urine Blood Negative (Negative) Urine Nitrite Negative (Negative) Ur Leukocyte Esterase Negative (Negative) Urine Opiates Screen Not Detected (Not Detect) Urine Fentanyl Screen Not Detected (Not Detect) Ur Barbiturates Screen Not Detected (Not Detect) Ur Phencyclidine Scrn Not Detected (Not Detect) Ur Amphetamines Screen Not Detected (Not Detect) U Benzodiazepines Scrn Not Detected (Not Detect) Urine Cocaine Screen POSITIVE H (Not Detect) U Marijuana (THC) Screen POSITIVE H (Not Detect) Ethyl Alcohol < 10 mg/dL COVID-19 ([place]) Negative (Negative) COVID-19 Clin Com See Note External Record Review External record reviewed: Inpatient record, Office record and Outpatient record Prescription Management I considered prescription management with: Other Discharge Plan Discharge Clinical Impression: Suicidal ideation, Bipolar disorder Patient Disposition: Home, Self-Care Instructions: Suicide Prevention (ED), Bipolar Disorder (DC), Cocaine Abuse (ED) Additional Instructions: You were evaluated by the CARE team in the emergency department today. They are placing a referral for you for an [facility] bed for tomorrow. Return to the emergency department if you have thoughts of hurting yourself or anyone else. Prescriptions: No Action lithium carbonate 150 mg capsule 1 cap PO BID lithium carbonate 300 mg capsule 1 cap PO BID Latuda 60 mg tablet 1 tab PO QAM buspirone 30 mg tablet 1 tab PO BID prazosin 5 mg capsule 1 cap PO BEDTIME nicotine (polacrilex) 2 mg Lozenge 2 mg buccal Q2H PRN (Reason: Nicotine Cravings) Qty: 30 0RF mirtazapine 30 mg tablet 30 mg PO BEDTIME Qty: 30 0RF Interventions: [place]-Suicide Risk Severity Scale Last Done: 10/25/23 11:38
--- NOTE | 2023-10-25 10:27 | PC.NURSE ---
Assumed care of this pt at 1030. Pt escorted to POD by security. Pt cooperative with transfer. Pt now in room 4, he requests something for anxiety, will follow-up.
[2023-10-25 10:49] LABS: MANUAL DIFF FLAG NO
[2023-10-25] MEDS: clonazePAM 1 MG TABLET PO (10:50)
[2023-10-25 10:51] LABS: Basophils Percent Auto 0.3 % (0-2); Eosinophils Absolute Auto 0.3 X10*3/uL (0.0-0.4); Eosinophils Percent Auto 3.1 % (0-4); Hematocrit 44.9 % (42.0-52.0); Hemoglobin 15.4 g/dl (14.0-18.0); Imm Gran Abs Auto 0.01 X10*3/uL (0.00-0.03); Imm Gran Pct Auto 0.1 % (0.0-0.4); Lymphocytes Absolute Auto 1.7 X10*3/uL (1.2-4.9); Lymphocytes Percent Auto 16.3 % (20-40); Mean Corpuscular HGB Conc 34.3 g/dl (31.0-36.0); Mean Corpuscular Hemoglobin 28.5 pg (27.0-33.0); Mean Platelet Volume 9.4 fL (9.4-12.4); Monocytes Absolute Auto 0.5 X10*3/uL (0.1-1.2); Neutrophils Absolute Auto 8.1 x10*3/uL (2.0-8.3); Neutrophils Percent Auto 75.2 % (45-73); Platelet Count 314 X10*3/uL (160-400); Red Blood Count 5.41 X10*6/uL (4.60-5.80); Red Cell Distribution Width 12.4 % (11.0-16.0); White Blood Count 10.7 X10*3/uL (4.8-10.8)
[2023-10-25 11:08] LABS: Anion Gap 9 (12-20); Blood Urea Nitrogen 9 mg/dL (9-16); Carbon Dioxide 27 mmol/L (22-29); Chloride 107 mmol/L (96-108); Creatinine Clr Calc Pharmacy 122.6; Estimated Glomerular Filt Rate > 60; Ethanol < 10 mg/dL; Glucose Random 91 mg/dL (60-115); Potassium 4.2 mmol/L (3.3-5.1); Sodium 139 mmol/L (135-145)
[2023-10-25 11:10] LABS: COVID-19 Test Negative (Negative); IDNOW Serial# 152EDE1D
[2023-10-25 11:20] LABS: Appearance Urine Clear; Color Urine Yellow; Glucose Urine UA Negative (Negative); Leukocyte Esterase Urine Negative (Negative); Nitrite Urine Negative (Negative); PH 7.5 (5.0-9.0); Specific Gravity - Urine <= 1.005 (1.005-1.025); Urine Blood Negative (Negative); Urine Ketones Negative (Negative); Urine Protein Negative (Neg-Trace)
[2023-10-25 11:35] VITALS: BP 121/88; PULSE 96; RESP 16; TEMP 37.1; O2SAT 97
[2023-10-25] MEDS: Nicotine 21 MG PATCH.TD24 TRANSDERMA (13:23)
--- NOTE | 2023-10-25 18:04 | MHC.CARE ---
CARE Team evaluation complete. Pt is appropriate for [facility] level of care and will be referred for [facility] follow up as well. Pt will await acceptence to [facility] from home and is confirmed to be safe. ED provider, POD RN and Pt are aware.
--- NOTE | 2023-10-25 19:52 | MHC.CARE ---
Referral to [facility] has been faxed and activated. [facility] reports they are able to follow up with patient by tomorrow 10/26/23. T/W called Pt to update him on this information.
== END 2023-10-25 15:58 | disposition home or self-care (01) ==
PROVIDERS: Registered Nurse Emergency; Emergency Provider Emergency Medicine; PCP Nurse Practitioner Family
DX: F31.9 Bipolar disorder, unspecified (principal); R45.851 Suicidal ideations; R00.0 Tachycardia, unspecified; F41.9 Anxiety disorder, unspecified; R45.1 Restlessness and agitation; F63.81 Intermittent explosive disorder; F12.20 Cannabis dependence, uncomplicated; F17.210 Nicotine dependence, cigarettes, uncomplicated; Z79.899 Other long term (current) drug therapy
CPT/HCPCS: 80048; 80307; 81003; 85025; 87635; 99284; 99285; S9485

== ENCOUNTER 2024-02-07 10:55 | Outpatient (REF) | payer BC, SELFPAY ==
[2024-02-07 11:15] LABS: MANUAL DIFF FLAG NO
[2024-02-07 11:52] LABS: Basophils Percent Auto 0.2 % (0-2); Eosinophils Absolute Auto 0.4 X10*3/uL (0.0-0.4); Eosinophils Percent Auto 4.9 % (0-4); Hematocrit 46.6 % (42.0-52.0); Hemoglobin 15.9 g/dl (14.0-18.0); Imm Gran Abs Auto 0.05 X10*3/uL (0.00-0.03); Imm Gran Pct Auto 0.6 % (0.0-0.4); Lymphocytes Absolute Auto 1.9 X10*3/uL (1.2-4.9); Lymphocytes Percent Auto 21.8 % (20-40); Mean Corpuscular HGB Conc 34.1 g/dl (31.0-36.0); Mean Corpuscular Hemoglobin 28.9 pg (27.0-33.0); Mean Corpuscular Volume 84.7 fL (80.0-98.0); Mean Platelet Volume 9.8 fL (9.4-12.4); Monocytes Absolute Auto 0.4 X10*3/uL (0.1-1.2); Monocytes Percent Auto 4.7 % (2-11); Neutrophils Percent Auto 67.8 % (45-73); Platelet Count 284 X10*3/uL (160-400); Red Cell Distribution Width 12.5 % (11.0-16.0); White Blood Count 8.8 X10*3/uL (4.8-10.8)
[2024-02-07 12:03] LABS: Amphetamine Screen Urine Not Detected (Not Detect); Barbiturates, Urine Not Detected (Not Detect); Benzodiazepines Screen Urine Not Detected (Not Detect); Buprenorphine Scr Not Detected (Not Detect); Cannabinoid Screen Urine POSITIVE (Not Detect); Cocaine Screen Urine Not Detected (Not Detect); Fentanyl, urine Not Detected (Not Detect); Methadone Screen, Urine Not Detected (Not Detect); Opiate Screen Urine Not Detected (Not Detect); Oxycodone Screen Urine Not Detected (Not Detect); Phencyclidine Screen Urine Not Detected (Not Detect)
[2024-02-07 12:23] LABS: Anion Gap 14 (12-20); Blood Urea Nitrogen 10 mg/dL (9-16); Calcium 10.4 mg/dL (8.4-10.2); Carbon Dioxide 26 mmol/L (22-29); Chloride 104 mmol/L (96-108); Estimated Glomerular Filt Rate > 60; Glucose Random 83 mg/dL (60-115); Potassium 4.6 mmol/L (3.3-5.1); Sodium 139 mmol/L (135-145)
[2024-02-07 12:40] LABS: Thyroid Stimulating Hormone 2.08 uIU/mL (0.32-4.0)
[2024-02-07 13:04] LABS: T4 Thyroxine 6.5 ug/dL (4.5-12.0)
== END 2024-02-07 10:56 | disposition home or self-care (01) ==
LOC: HO.LAB 10:55
PROVIDERS: PCP Nurse Practitioner Family; Visit Provider Clinical Nurse Specialist Psychiatric/Mental Health, Child & Adolescent
DX: Z79.899 Other long term (current) drug therapy (principal)
CPT/HCPCS: 80048; 80307; 84436; 84443; 85025